=== PATIENT | male | born 1955 ===

== ENCOUNTER 2022-05-29 12:59 | Inpatient (IN) | payer OTHER ==
--- OUTSIDE RECORDS SUMMARY | 2022-05-29 13:35 | XMS REPORT | Continuity of Care Document ---
:1955 Author Organization [facility] t Address [address] [place] [address] Support Name Relationship Address Phone Diane Garcia Spouse [address] [place] [address] MD KITTY HEREDIA Primary Care Physician [address] [phone] [place] [address] MD JONEL MORSE Emergency Provider [address] [phone] [place] [id number] MD KHANG BRAGG Admitting Provider [address] [place] [address] MD MIRIAM FISH A Emergency Provider [address] [place] [id number] MD CONNIE ROSS Emergency Provider [address] [phone] [place] [address] DO IRINA WARD Emergency Provider [address] [email or web address] [address] [facility] MD CONSUELO CANDELARIA Other Provider [address] [place] [address] MD KAROLINA LYNCH Emergency Provider [address] [phone] [place] [address] Care Team Providers Name Role Phone Pcp, Patient Does Not Have A Primary Care Physician [phone] CONSUELO CANDELARIA Attending Clinician Unavailable BLAZE CHOUDHARY Attending Clinician Unavailable Dorie Luciano MD Attending Clinician Rivera Foy MD Attending Clinician Augustina Urbina MD Attending Clinician Jeffery Truong MD Attending Clinician Blaze Choudhary DO Attending Clinician ANDREW CELESTIN Attending Clinician Unavailable Zuniga_F Attending Clinician Unavailable KHANG BRAGG Attending Clinician Unavailable REJI MCGOVERN Attending Clinician Unavailable ADDISON RODRIGUEZ Attending Clinician Unavailable Koudela_A Attending Clinician Unavailable CONNIE ROSS Attending Clinician Unavailable A_Byjustin Attending Clinician Unavailable Ingrid Attending Clinician Unavailable KITTY HEREDIA Attending Clinician Unavailable ELADIA MALCOLM Attending Clinician Unavailable CHELA JACOB Attending Clinician Unavailable AYDE CANCINO Attending Clinician Unavailable GABRIELE SCHWARZ Attending Clinician Unavailable BETZAIDA MELCHOR Attending Clinician Unavailable JEFFERY TRUONG Admitting Clinician Unavailable Jeffery Truong MD Admitting Clinician Zuniga_F Admitting Clinician Unavailable KHANG BRAGG Admitting Clinician Unavailable ADDISON RODRIGUEZ Admitting Clinician Unavailable Tianna_A Admitting Clinician Unavailable A_Byjustin Admitting Clinician Unavailable Ingrid Admitting Clinician Unavailable GABRIELE SCHWARZ Admitting Clinician Unavailable RIVERA GOLD Admitting Clinician Unavailable BETZAIDA MELCHOR Admitting Clinician Unavailable Payers Payer Name Policy Type Policy Number Effective Date Expiration Date S anai MEDICARE PART A [id number] 2013 \\T\\ B 00:00:00 NATHANIEL [id number] 2020 00:00:00 [place]: [id number] 2006 Spool 00:00:00 NATHANIEL [id number] 2020 (MEDICARE 00:00:00 SUPPLEMENT) [place]: [id number] 2006 Spool 00:00:00 - [facility] Problems Condition Condition Condition Status Onset Resolution Last Treating Co mments Source Name Details Category Date Date Treatment Clinician Date Closed Closed Disease Active 2021-06 [facility] compressio compressio 07-26 [place] of n [place] body of of body of 00 Me dical L1 L1 Branch vertebra vertebra Chronic Chronic Disease Active 2021-06 [facility] obstructiv obstructiv 07-21 it y of e e 00:00: [place] pulmonary pulmonary 00 Medi pardeep disease, disease, Branch unspecifie unspecifie d COPD d COPD type type Deep Deep Problem Active 2019-06 [place] venous Venous 2-22 da thrombosis Thrombosis 00:00: Me dical of lower of Lower 00 Group extremity Extremity Spasm of Spasm of Problem Active 2019-06 [place] back Back 2- da muscles Muscles 00:00: Medical 00 Group Cellulitis Cellulitis Problem Active M [facility] of lower of Lower 8-27 da limb Limb 00:00: Medical Group Benign Benign Problem Active [place] essential Essential 2- da hypertensi Hypertensi 00:00: Me dical on on Group Lipoma of Lipoma of Problem Active [place] skin Skin da Medical Group Smokes Smokes Problem Active [place] tobacco Tobacco da daily Daily Medical Group Atrial Atrial Problem Active [place] paroxysmal Paroxysmal da tachycardi Tachycardi Me dical a a Group Bacterial Bacterial Problem Active [place] pneumonia Pneumonia da Medical Group Abscess of Abscess of Problem Active M [facility] skin area Skin Area da excluding Excluding Medi pardeep digits of Digits of Grou p hand or Hand or foot Foot Abscess Abscess Problem Active [place] [facility] Foreign Foreign Problem Active [place] body Body da granuloma Granuloma Medi pardeep of skin of Skin Group Cough Cough Problem Active [place] [facility] Elevated Elevated Problem Active [place] blood Blood da pressure Pressure Medica l Group Non-healin Non-healin Problem Active [facility] g surgical g Surgical da wound Wound Medical Group Allergies, Adverse Reactions, Alerts Allergy Allergy Status Severity Reaction(s) Onset Inactive Treating Comm ents Source Name Type Date Date Clinician NO KNOWN Drug Active [facility] ALLERGIE Class [facility] [place] [facility] Social History Social Habit Start Date Stop Date Quantity Comments Source Exposure to 2022-05-10 2022-05-20 Not sure [facility] SARS-CoV-2 (event) 00:00:00 21:40:00 Medica l Branch Sex Ass[birth year] [facility] [place] 00:00:00 00:00:00 Medical Branch Smoking Status Start Date Stop Date Source Tobacco smoking consumption [facility] Medical unknown Branch Light Tobacco Smoker Sylvie Maguire [facility] Medications Ordered Filled Start Stop Current Ordering Indication Dosage Frequency Signature Comments Components Source Medication Medication Date Date Medication? Clinician (SIG) Name Name furosemide 2021-06 Yes 40mg Take 40 mg U nivers (LASIX) 40 2-13 by mouth ity o f mg tablet 13:20: in the [place] [address] morning. Medical Branch KCL 10 mEq 2021-06 Yes 10meq Take 10 Uni vers tablet 2-13 mEq by ity of 13:20: mouth in [place] 43 the Medical morning. Branch cyclobenzap 2021-06 Yes 10mg Take 10 mg Univers rine 10 mg 2-13 by mouth ity o f tablet 13:20: in the [place] [address] morning. Medical Branch losartan 25 2021-06 Yes 25mg Take 25 mg Univers mg tablet 2-13 by mouth ity of 13:20: in the [place] [address] morning. Medical Branch aspirin 81 2021-06 Yes [id number] 81mg Take 1 U nivers mg chewable 2-13 tablet by ity of tablet 00:00: mouth in [place] 00 the Medical morning. Branch lactulose 2021-06 Yes 30mL 30 mL, Univer s (CEPHULAC) 2-12 Oral, ity of solution 30 15:35: BIDPRN, [place] mL 33 Starting Medical on Sat [place] 05/28/22 at 0935, Until Discontinu ed, Routine, Constipati on predniSONE 2021-06 Yes 40mg 40 mg, Unive rs (DELTASONE) 2-12 Oral, ity of tablet 40 15:00: DAILY, [place] mg 00 First dose Medical on Sat [place] 05/28/22 at 0900, Until Discontinu ed, Routine methylPREDN 2021-06 No 40mg 40 mg, Uni vers ISolone sod 2-12 12-12 Slow IV ity of succ 02:00: 02:36 [place], [place] (SOLU-MEDRO 00 :00 Q12H, 1 Medic al L (PF)) dose, Branch injection First dose 40 mg (after last modificati on) on 05/27/22 at 2000, Routine apixaban 5 2021-06 Yes 1358 5mg Take 1 Unive rs mg tablet 2-12 tablet by ity o f 00:00: mouth in [place] 00 the Medical morning Branch and 1 tablet in the evening. Indication s: atrial fibrillati on methocarbam 2021-06 Yes [id number] 500mg Take 1 Univers oL 500 mg 2-12 tablet by ity o f tablet 00:00: mouth 4 [place] 00 (four) Medical times Branch daily. metoprolol 2021-06 Yes [id number] 25mg Take 1 U nivers tartrate 25 2-12 tablet by ity of mg tablet 00:00: mouth in [facility] 00 the Medical morning Branch and 1 tablet in the evening. predniSONE 2021-06 Yes [id number] 20mg Take 1 U nivers 20 mg 2-12 tablet by ity of tablet 00:00: mouth in [place] [address] the Medical morning. Branch aspirin 2021-06 Yes 81mg 81 mg, Univers chewable 2-11 Oral, ity of tablet 81 15:00: DAILY, [place] mg 00 First dose Medical on Sun Branch 05/27/22 at 0900, Until Discontinu ed, Routine apixaban 2021-06 Yes 5mg 5 mg, Univers (ELIQUIS) 2-11 Oral, BID, ity of tablet 5 mg 02:00: First dose [place] 00 on [facility] 05/26/22 Branch at 2000, Until Discontinu ed, Routine
Indicatio ns: Non-Valvul ar Atrial Fibrillati on methylPREDN 2021-06 40mg 40 mg, Uni vers ISolone sod 2-11 Slow IV ity of succ 02:00: 23:00 Push, [place] (SOLU-MEDRO 00 :34 Q12H, Medical L (PF)) First dose Branch injection (after 40 mg last modificati on) on [facility] 05/26/22 at 2000, Until Discontinu ed, Routine ipratropium 2021-06 Yes .5mg 0.5 mg, Uni vers (ATROVENT) 2-10 Inhalation ity of 0.02 % 20:00: , TID, [place] nebulizer 00 First dose Medi pardeep solution (after Branch 0.5 mg last modificati on) on [facility] 05/26/22 at 1400, Until Discontinu ed, Routine albuterol 2021-06 Yes 2.5mg 2.5 mg, Univ ers (PROVENTIL) 2-10 Inhalation it y of 2.5 mg /3 20:00: , TID, [place] mL (0.083 00 First dose Medi pardeep %) (after [place] nebulizer last solution modificati 2.5 mg on) on [facility] 05/26/22 at 1400, Until Discontinu ed, Routine losartan 2021-06 Yes 25mg 25 mg, Univers (COZAAR) 2-10 Oral, ity of tablet 25 15:00: DAILY, [place] mg 00 First dose Medical on [facility] 05/26/22 at 0900, Until Discontinu ed, Routine KCL 2021-06 Yes 10meq 10 mEq, Univers (KLOR-CON 2-10 Oral, ity of M10) tablet 15:00: DAILY, [place] 10 mEq 00 First dose Medical on [facility] 05/26/22 at 0900, Until Discontinu ed, Routine furosemide 2021-06 Yes 40mg 40 mg, Unive rs (LASIX) 2-10 Oral, ity of tablet 40 15:00: DAILY, [place] mg 00 First dose Medical on [facility] 05/26/22 at 0900, Until Discontinu ed, Routine metoprolol 2021-06 Yes 25mg 25 mg, Unive rs tartrate 2-10 Oral, BID, ity o f (LOPRESSOR) 02:00: First dose [place] tablet 25 00 on Fri Medical mg 05/25/22 at Branch 2000, Until Discontinu ed, Routine furosemide 2021-06- No 40mg 40 mg, Univ ers (LASIX) 07-25 Slow IV ity of injection 19:30: 18:53 Push, [place] 40 mg 00 :00 ONCE, 1 Medical [facility], Routine methylpredn 2021-06 No 60mg 60 mg, Uni vers isolone sod 07-2511 Slow IV ity of succ 18:30: 00:47 Push, [place] (SOLU-MEDRO 00 :04 Q12H, Medical L) First dose Branch injection on [place] 60 mg 05/24/22 at 1230, Until Discontinu ed, Routine heparin 2021-06- No [id number] 5000U 5,000 Univers (porcine) 07-25 06 Units, ity of injection 18:15: 16:13 Subcutaneo [place] 5,000 Units 00 :37 us, Q12H, Med ical First dose Branch on [place] 05/24/22 at 1215, Until Discontinu ed, Routine albuterol 2021-06 No 2.5mg 2.5 mg, Uni vers (PROVENTIL) 07-24 Inhalation i ty of 2.5 mg /3 18:00: 19:10 , QID, [place] mL (0.083 00 :45 First dose Medi pardeep %) on Sat [place] nebulizer 05/23/22 at solution 1200, 2.5 mg Until Discontinu ed, Routine ipratropium 2021-06 No .5mg 0.5 mg, Un ronda (ATROVENT) 07-24 Inhalation it y of 0.02 % 18:00: 19:10 , QID, [place] nebulizer 00 :45 First dose Medi pardeep solution on Sat [place] 0.5 mg 05/23/22 at 1200, Until Discontinu ed, Routine KCL 20 2021-06 No 40meq 40 mEq, Univer s mEq/15 mL 07-24 Oral, ity of solution 40 15:00: 18:30 DAILY, [place] mEq 00 :44 First dose Medical on Sat [place] 05/23/22 at 0900, Until Discontinu ed, Routine budesonide 2021-06 Yes .25mg 0.25 mg, Un ronda (PULMICORT 07-24 Inhalation ity of RESPULE) 14:00: , BID, [place] nebulizer 00 First dose Medi pardeep solution on Sat [place] 0.25 mg 05/23/22 at 0800, Until Discontinu ed, Routine acetaZOLAMI 2021-06 No 250mg 250 mg, U nivers DE (DIAMOX) 07-24 Oral, BID, i ty of tablet 250 02:30: 18:29 First dose [place] mg 00 :39 on Sat Medical 05/22/22 at Branch 2030, Until Discontinu ed, Routine azithromyci 2021-06 No 250mg 250 mg, U nivers n 07-24 Oral, ity of (ZITHROMAX) 00:00: 22:42 Q24H, 4 [place] tablet 250 00 :00 doses, Medical mg First dose Branch on Sat05/22/22 at 1800, Last dose on Sat05/25/22 at 1800, DOMINIC
Re ason for Anti-Infec tive: Empiric Therapy for Suspected Infection< br>Empiric Therapy Site: Respirator y
Durat ion of therapy: 5 days sulfur 2021-06 No [id number] 5mL 5 mL, Un ronda hexafluorid 07-23-06 06 Intravenou i ty of e microsphr 15:30: 15:16 s, ONCE, 1 [place] (LUMASON) 00 :00 dose, On Medica l injection 5 e Branch mL 05/22/22 at 0930, Routine
meat service team member approving Restricted medication : PATRICIA BULLOCK predniSONE 2021-06 40mg 40 mg, Univ ers (DELTASONE) 2 12-08 Oral, ity of tablet 40 15:00: 18:29 DAILY, 5 [place] mg 00 :39 doses, Medical First dose Branch on Sat05/22/22 at 0900, Last dose on Sat05/26/22 at 0900, Routine morpHINE (4 2021-06 Yes 4mg 4 mg, Slow Univers mg/mL) 206 IV [place], ity of injection 4 14:04: Q6HPRN, [place] mg 10 Starting Medical on Sat Branch 05/22/22 at 0804, Until Discontinu ed, Routine, Pain (scale 7-10) HYDROcodone 2021-06 Yes 1{tbl} 1 tablet, Univers -acetaminop 2-06 Oral, ity of hen (NORCO 14:03: Q4HPRN, [place] 5) 5-325 mg 48 Starting Medi pardeep tablet 1 on Sat Branch tablet 05/22/22 at 0803, Until Discontinu ed, Routine, Pain (scale 4-6) ipratropium 2021-06 No 3mL 3 mL, Univ ers -albuteroL 2 12-07 Inhalation it y of (DUONEB) 02:00: 14:21 , QID, [place] 0.5 mg-3 00 :26 First dose Medic al mg(2.5 mg on Sat Branch base)/3 mL 05/21/22 at nebulizer 2000, solution 3 Until mL Discontinu ed, Routine dexMEDEtomi 2021-06- No .2ug/kg 0.2-1.5 Univers dine 400 2- 12-08 /h mcg/kg/hr ity o f mcg in 0.9 01:12: 15:05 ?95.3 kg [place] % NaCl 100 38 :40 (4.765-35. Med ical mL 7375 Branch (PRECEDEX) mL/hr, RTU IV rounded to infusion 4.77-35.74 mL/hr), IV Infusion, TITRATE, Sedation-R ASS score (0 to -1), Starting on Sat05/21/22 at 1912
In itiate infusion at 0.2 mcg/kg/hr and titrate by 0.1 mcg/kg/hr every 30 minutes to goal sedation score. Maximum dose = 1.5 mcg/kg/hr. If goal not maintained at maximum allowed dose, contact prescriber .
dexMEDEtomi 2021-06- No .2ug/kg 0.2-1.5 Univers dine 200 2- 12-06 /h mcg/kg/hr ity o f mcg in 0.9 01:07: 01:13 ?95.3 kg [place] % NaCl 50 15 :00 (4.765-35. Medi pardeep mL 7375 Branch (PRECEDEX) mL/hr, RTU IV rounded to infusion 4.77-35.74 mL/hr), IV Infusion, TITRATE, Sedation-R ASS score (0 to -1), Starting on Sat05/21/22 at 1907
In itiate infusion at 0.2 mcg/kg/hr and titrate by 0.1 mcg/kg/hr every 30 minutes to goal sedation score. Maximum dose = 1.5 mcg/kg/hr. If goal not maintained at maximum allowed dose, contact prescriber .
amoxicillin 2021-06- No 1{tbl} 1 tablet, Univers -clavulanat 07-23 Oral, ity of e 00:15: 18:29 Q12H, 10 [place] (AUGMENTIN) 23 :39 doses, Medica l 875-125 mg First dose Bra nch per tablet on Mon 1 tablet 05/21/22 at 2000, Last dose on 05/26/22 at 0800, Routine
Reason for Anti-Infec tive: Empiric Therapy for Suspected Infection< br>Empiric Therapy Site: Respirator y
Durat ion of therapy: 5 days acetaminoph 2021-06 Yes 650mg 650 mg, Un ronda en 2-06 Oral, Q6H, ity of (TYLENOL) 00:00: First dose [place] tablet 650 00 on Mon Medical mg 05/21/22 at Branch 1800, Until Discontinu ed, Routine furosemide 2021-06- No 40mg 40 mg, Univ ers (LASIX) 2- 12-06 Slow IV ity of injection 00:00: 17:29 [place], Q6H, [place] 40 mg 00 :00 4 doses, Medical First dose Branch on Sat05/21/22 at 1800, Last dose on Sat05/22/22 at 1200, Routine methocarbam 2021-06 Yes 1000mg 1,000 mg, Univers oL 2-05 Intravenou ity of (ROBAXIN) 20:00: s, Q8H, [place] injection 00 First dose Medi pardeep 1,000 mg on Sat Branch 05/21/22 at 1400, Until Discontinu ed, Routine morpHINE 30 2021-06- No Patient Un ronda mg/30 mL 2 12-06 Bolus ity of (fixed 16:15: 14:03 Dose: 1 [place] dose) OUT PATIENT THERAPIST 00 :57 mg
Lock Medi pardeep injection out Branch Interval: 6 Minutes
Basal Rate: 0 mg/hr
F our Hour Dose Limit: 20 mg
Intr avenous, 30 mL, CONTINUOUS , Starting on Sat05/21/22 at 1015, Until Sat05/22/22 at 0803 naloxone 2021-06 Yes .1mg 0.1 mg, Univer s (NARCAN) 2-05 Slow IV ity of injection 15:07: Push, [place] 0.1 mg 29 SEE-INSTRU Medical CTIONS, Branch Starting on Sat05/21/22 at 0907, Until Discontinu ed, Routine lactated 2021-06 No 1000mL at 75 Unive rs ringers IV 2 12-06 mL/hr, ity of infusion 08:15: 17:13 1,000 mL, [place] 1,000 mL 00 :31 IV Medical Infusion, Branch CONTINUOUS , Starting on Sat05/21/22 at 0215, Until Sat05/22/22 at 1113, Routine morpHINE (4 2021-06- No 4mg 4 mg, Slow Univers mg/mL) 07-22 IV [place], ity of injection 4 07:45: 07:03 ONCE, 1 [place] mg 00 :00 dose, On Medical Mon Branch 05/21/22 at 0145, DOMINIC acetaminoph 2021-06- No 1000mg 1,000 mg, Univers en ADULT 07-22 IV ity of ([facility]) 04:00: 21:01 Infusion, [place] injection 00 :00 at 400 Medical 1,000 mg mL/hr Branch Administer over 15 Minutes, Q8H, 3 doses, First dose on Sat05/20/22 at 2200, Last dose on Sat05/21/22 at 1400, Routine
Indicatio n: Perioperat uriah Patient lactated 2021-06- No 1000mL at 100 Univ ers ringers IV 07-22- mL/hr, ity of infusion 04:00: 08:14 1,000 mL, [place] 1,000 mL 00 :19 IV Medical Infusion, Branch CONTINUOUS , Starting on Sat05/20/22 at 2200, Until Sat05/21/22 at 0214, Routine albuterol albuterol No albuterol [place] sulfate HFA sulfate HFA sulfate da 90 90 HFA 90 Medical mcg/actuati mcg/actuati mcg/actuat Group on aerosol on aerosol ion inhaler inhaler aerosol INHALE 2 INHALE 2 inhaler PUFFS BY PUFFS BY INHALE 2 MOUTH EVERY MOUTH EVERY PUFFS BY 4 TO 6 4 TO 6 MOUTH HOURS HOURS EVERY 4 TO NEEDED FOR NEEDED FOR 6 HOURS WHEEZING/ WHEEZING/ NEEDED FOR SHORTNESS SHORTNESS WHEEZING/ OF BREATH OF BREATH SHORTNESS OF BREATH benzonatate benzonatate No benzonatat [place] 200 mg 200 mg e 200 mg da capsule capsule capsule Medica l TAKE 1 TAKE 1 TAKE 1 Group CAPSULE BY CAPSULE BY CAPSULE BY MOUTH THREE MOUTH THREE MOUTH TIMES A DAY TIMES A DAY THREE FOR 7 DAYS FOR 7 DAYS TIMES A DAY FOR 7 DAYS dexamethaso dexamethaso No dexamethas [place] ne 6 mg ne 6 mg one 6 mg da tablet TAKE tablet TAKE tablet Medical 1 TABLET BY 1 TABLET BY TAKE 1 Group MOUTH EVERY MOUTH EVERY TABLET BY DAY FOR 7 DAY FOR 7 MOUTH DAYS DAYS EVERY DAY FOR 7 DAYS doxycycline doxycycline No doxycyclin [place] hyclate 100 hyclate 100 e hyclate da mg tablet mg tablet 100 mg Med ical TAKE 1 TAKE 1 tablet Group TABLET BY TABLET BY TAKE 1 MOUTH EVERY MOUTH EVERY TABLET BY 12 HOURS 12 HOURS MOUTH FOR FOR EVERY 12 INFECTION INFECTION HOURS FOR INFECTION furosemide furosemide No furosemide [place] 40 mg 40 mg 40 mg da tablet TAKE tablet TAKE tablet Medical 1 TABLET BY 1 TABLET BY TAKE 1 Group MOUTH EVERY MOUTH EVERY TABLET BY DAY FOR CHF DAY FOR CHF MOUTH EVERY DAY FOR CHF ketorolac ketorolac No 1mL Q6H ketorolac [place] 60 mg/2 mL 60 mg/2 mL 60 mg/2 mL da intramuscul intramuscul intramuscu Medical ar solution ar solution lar G roup Inject 1 mL Inject 1 mL solution every 6 every 6 Inject 1 hours by hours by mL every 6 intramuscul intramuscul hours by ar route. ar route. intramuscu lar route. Klor-Con 10 [place]lor-Con 10 No Klor-Con [place] mEq mEq 10 mEq da tablet,exte tablet,exte tablet,ext Medical nded nded ended Group release release release TAKE 1 TAKE 1 TAKE 1 TABLET BY TABLET BY TABLET BY MOUTH EVERY MOUTH EVERY MOUTH DAY FOR 30 DAY FOR 30 EVERY DAY DAYS DAYS FOR 30 DAYS losartan 50 losartan 50 No losartan [place] mg tablet mg tablet 50 mg da TAKE 1 TAKE 1 tablet Medical TABLET BY TABLET BY TAKE 1 Luis up MOUTH EVERY MOUTH EVERY TABLET BY DAY FOR 30 DAY FOR 30 MOUTH DAYS DAYS EVERY DAY FOR 30 DAYS prednisone prednisone No prednisone [place] 20 mg 20 mg 20 mg da tablet TAKE tablet TAKE tablet Medical 1 TABLET BY 1 TABLET BY TAKE 1 Group MOUTH DAILY MOUTH DAILY TABLET BY FOR COPD FOR COPD MOUTH DAILY FOR COPD albuterol albuterol No albuterol [place] sulfate HFA sulfate HFA sulfate da 90 90 HFA 90 Medical mcg/actuati mcg/actuati mcg/actuat Group on aerosol on aerosol ion inhaler inhaler aerosol INHALE 2 INHALE 2 inhaler PUFFS BY PUFFS BY INHALE 2 MOUTH EVERY MOUTH EVERY PUFFS BY 4 TO 6 4 TO 6 MOUTH HOURS HOURS EVERY 4 TO NEEDED FOR NEEDED FOR 6 HOURS WHEEZING / WHEEZING / NEEDED FOR SHORTNESS SHORTNESS WHEEZING / OF BREATH OF BREATH SHORTNESS OF BREATH amiodarone amiodarone No amiodarone [place] 200 mg 200 mg 200 mg da tablet TAKE tablet TAKE tablet Medical 2 TABLETS 2 TABLETS TAKE 2 Luis up BY MOUTH BY MOUTH TABLETS BY EVERY DAY EVERY DAY MOUTH FOR AFIB FOR AFIB EVERY DAY FOR AFIB doxycycline doxycycline No doxycyclin [place] hyclate 100 hyclate 100 e hyclate da mg capsule mg capsule 100 mg M edical TAKE 1 TAKE 1 capsule Group CAPSULE BY CAPSULE BY TAKE 1 MOUTH TWICE MOUTH TWICE CAPSULE BY A DAY FOR A DAY FOR MOUTH COPD COPD TWICE A DAY FOR COPD Eliquis 5 Eliquis 5 No Eliquis 5 [place] mg tablet mg tablet mg tablet da TAKE 1 TAKE 1 TAKE 1 Medical TABLET BY TABLET BY TABLET BY Group MOUTH TWICE MOUTH TWICE MOUTH A DAY FOR A DAY FOR TWICE A AFIB AFIB DAY FOR AFIB furosemide furosemide No furosemide [place] 40 mg 40 mg 40 mg da tablet TAKE tablet TAKE tablet Medical 1 TABLET BY 1 TABLET BY TAKE 1 Group MOUTH EVERY MOUTH EVERY TABLET BY DAY FOR CHF DAY FOR CHF MOUTH EVERY DAY FOR CHF Klor-Con 10 Klor-Con 10 No Klor-Con [place] mEq mEq 10 mEq da tablet,exte tablet,exte tablet,ext Medical nded nded ended Group release release release TAKE 1 TAKE 1 TAKE 1 TABLET BY TABLET BY TABLET BY MOUTH EVERY MOUTH EVERY MOUTH DAY DAY EVERY DAY losartan 50 losartan 50 No losartan [place] mg tablet mg tablet 50 mg da TAKE 1 TAKE 1 tablet Medical TABLET BY TABLET BY TAKE 1 Luis up MOUTH EVERY MOUTH EVERY TABLET BY DAY DAY MOUTH EVERY DAY metoprolol metoprolol No metoprolol [place] tartrate 25 tartrate 25 tartrate da mg tablet mg tablet 25 mg Medi pardeep TAKE 1 TAKE 1 tablet Group TABLET BY TABLET BY TAKE 1 MOUTH TWICE MOUTH TWICE TABLET BY A DAY FOR A DAY FOR MOUTH PAF PAF TWICE A DAY FOR PAF prednisone prednisone No prednisone [place] 20 mg 20 mg 20 mg da tablet TAKE tablet TAKE tablet Medical 2 TABLETS 2 TABLETS TAKE 2 Luis up BY MOUTH BY MOUTH TABLETS BY EVERY DAY EVERY DAY MOUTH FOR COPD FOR COPD EVERY DAY FOR COPD albuterol albuterol No albuterol [place] sulfate HFA sulfate HFA sulfate da 90 90 HFA 90 Medical mcg/actuati mcg/actuati mcg/actuat Group on aerosol on aerosol ion inhaler inhaler aerosol INHALE 2 INHALE 2 inhaler PUFFS BY PUFFS BY INHALE 2 MOUTH EVERY MOUTH EVERY PUFFS BY 4 TO 6 4 TO 6 MOUTH HOURS HOURS EVERY 4 TO NEEDED FOR NEEDED FOR 6 HOURS WHEEZING / WHEEZING / NEEDED FOR SHORTNESS SHORTNESS WHEEZING / OF BREATH OF BREATH SHORTNESS OF BREATH amiodarone amiodarone No amiodarone [place] 200 mg 200 mg 200 mg da tablet TAKE tablet TAKE tablet Medical 2 TABLETS 2 TABLETS TAKE 2 Luis up BY MOUTH BY MOUTH TABLETS BY EVERY DAY EVERY DAY MOUTH FOR AFIB FOR AFIB EVERY DAY FOR AFIB Eliquis 5 Eliquis 5 No Eliquis 5 [place] mg tablet mg tablet mg tablet da TAKE 1 TAKE 1 TAKE 1 Medical TABLET BY TABLET BY TABLET BY Group MOUTH TWICE MOUTH TWICE MOUTH A DAY FOR A DAY FOR TWICE A AFIB AFIB DAY FOR AFIB furosemide furosemide No furosemide [place] 40 mg 40 mg 40 mg da tablet TAKE tablet TAKE tablet Medical 1 TABLET BY 1 TABLET BY TAKE 1 Group MOUTH EVERY MOUTH EVERY TABLET BY DAY FOR CHF DAY FOR CHF MOUTH EVERY DAY FOR CHF Klor-Con 10 Klor-Con 10 No Klor-Con [place] mEq mEq 10 mEq da tablet,exte tablet,exte tablet,ext Medical nded nded ended Group release release release TAKE 1 TAKE 1 TAKE 1 TABLET BY TABLET BY TABLET BY MOUTH EVERY MOUTH EVERY MOUTH DAY DAY EVERY DAY losartan 50 losartan 50 No losartan [place] mg tablet mg tablet 50 mg da TAKE 1 TAKE 1 tablet Medical TABLET BY TABLET BY TAKE 1 Luis up MOUTH EVERY MOUTH EVERY TABLET BY DAY DAY MOUTH EVERY DAY metoprolol metoprolol No metoprolol [place] tartrate 25 tartrate 25 tartrate da mg tablet mg tablet 25 mg Medi pardeep TAKE 1 TAKE 1 tablet Group TABLET BY TABLET BY TAKE 1 MOUTH TWICE MOUTH TWICE TABLET BY A DAY FOR A DAY FOR MOUTH PAF PAF TWICE A DAY FOR PAF prednisone prednisone No prednisone [place] 20 mg 20 mg 20 mg da tablet TAKE tablet TAKE tablet Medical 2 TABLETS 2 TABLETS TAKE 2 Luis up BY MOUTH BY MOUTH TABLETS BY EVERY DAY EVERY DAY MOUTH FOR CHRONIC FOR CHRONIC EVERY DAY OBSTUCTIVE OBSTUCTIVE FOR PULMONARY PULMONARY CHRONIC DISEASE DISEASE OBSTUCTIVE PULMONARY DISEASE Immunizations Ordered Immunization Filled Immunization Date Status Commen ts Source Name Name COVID-19, mRNA, COVID-19, mRNA, 2020-10-25 Completed Alegria willie LNP-S, PF, 30 LNP-S, PF, 30 00:00:00 [facility] Group mcg/0.3 mL dose mcg/0.3 mL dose (Pfizer-BioNTech) (Pfizer-BioNTech) COVID-19, mRNA, COVID-19, mRNA, 2020-10-25 Completed Alegria willie LNP-S, PF, 30 LNP-S, PF, 30 00:00:00 [facility] Group mcg/0.3 mL dose mcg/0.3 mL dose (Pfizer-BioNTech) (Pfizer-BioNTech) COVID-19, mRNA, COVID-19, mRNA, 2020-10-25 Completed Alegria willie LNP-S, PF, 30 LNP-S, PF, 30 00:00:00 [facility] Group mcg/0.3 mL dose mcg/0.3 mL dose (Pfizer-BioNTech) (Pfizer-BioNTech) COVID-19, mRNA, COVID-19, mRNA, 2020-10-04 Completed Alegria willie LNP-S, PF, 30 LNP-S, PF, 30 00:00:00 [facility] Group mcg/0.3 mL dose mcg/0.3 mL dose (Pfizer-BioNTech) (Pfizer-BioNTech) COVID-19, mRNA, COVID-19, mRNA, 2020-10-04 Completed Alegria willie LNP-S, PF, 30 LNP-S, PF, 30 00:00:00 [facility] Group mcg/0.3 mL dose mcg/0.3 mL dose (Pfizer-BioNTech) (Pfizer-BioNTech) COVID-19, mRNA, COVID-19, mRNA, 2020-10-04 Completed Alegria willie LNP-S, PF, 30 LNP-S, PF, 30 00:00:00 [facility] Group mcg/0.3 mL dose mcg/0.3 mL dose (Pfizer-BioNTech) (Pfizer-BioNTech) Vital Signs Vital Name Observation Time Observation Value Comments Source Systolic blood 2022-05-29 13:53:00 144 mm[Hg] Univer sity of pressure [facility] Diastolic blood 2022-05-29 13:53:00 77 mm[facility]Hg[facility] 2022-05-29 13:53:00 67 /min [facility] Body temperature 2022-05-29 13:53:00 36.78 Roseline [facility] Respiratory rate 2022-05-29 13:53:00 20 /min [facility] Oxygen saturation in 2022-05-29 13:53:00 93 /min [facility] blood by [facility] Pulse oximetry Branch Body height 2022-05-21 03:40:37 177.8 cm [facility] Body weight 2022-05-21 03:40:37 95.255 kg [facility] BMI 2022-05-21 03:40:37 30.13 kg/m2 [facility] BP Diastolic 2022-04-18 00:00:00 75 mm[Hg] [facility] Height 2022-04-18 00:00:00 70 [in_i] [facility] BMI (Body Mass 2022-04-18 00:00:00 30.8 kg/m2 [facility] inventory control coordinator Medical Index) Group BP Systolic 2022-04-18 00:00:00 131 mm[Hg] [facility] Body Weight 2022-04-18 00:00:00 3430 [oz_av] [facility] BP Diastolic 2022-03-27 00:00:00 74 mm[Hg] [facility] Height 2022-03-27 00:00:00 70 [in_i] [facility] BMI (Body Mass 2022-03-27 00:00:00 31.6 kg/m2 [facility] inventory control coordinator Medical Index) Group BP Systolic 2022-03-27 00:00:00 129 mm[Hg] [facility] Body Weight 2022-03-27 00:00:00 3520 [oz_av] [facility] BP Diastolic 2021-11-01 00:00:00 78 mm[Hg] [facility] Height 2021-11-01 00:00:00 70 [in_i] [facility] BMI (Body Mass 2021-11-01 00:00:00 32.6 kg/m2 [facility] inventory control coordinator Medical Index) Group BP Systolic 2021-11-01 00:00:00 156 mm[Hg] [facility] Body Weight 2021-11-01 00:00:00 3635 [oz_av] [facility] BP Diastolic 2021-10-18 00:00:00 80 mm[Hg] [facility] Height 2021-10-18 00:00:00 70 [in_i] [facility] BMI (Body Mass 2021-10-18 00:00:00 31.4 kg/m2 [facility] Medical Index) Group BP Systolic 2021-10-18 00:00:00 154 mm[Hg] [facility] Body Weight 2021-10-18 00:00:00 3507 [oz_av] [facility] BP Diastolic 2021-09-04 00:00:00 84 mm[Hg] [facility] Height 2021-09-04 00:00:00 70 [in_i] [facility] BMI (Body Mass 2021-09-04 00:00:00 31.6 kg/m2 [facility] Medical Index) Group BP Systolic 2021-09-04 00:00:00 142 mm[Hg] [facility] Body Weight 2021-09-04 00:00:00 3520 [oz_av] [facility] BP Diastolic 2021-08-10 00:00:00 81 mm[Hg] [facility] Height 2021-08-10 00:00:00 70 [in_i] [facility] BMI (Body Mass 2021-08-10 00:00:00 32 kg/m2 [facility] Medical Index) Group BP Systolic 2021-08-10 00:00:00 121 mm[Hg] [facility] Body Weight 2021-08-10 00:00:00 3571 [oz_av] [facility] BP Diastolic 2021-05-18 00:00:00 86 mm[Hg] [facility] Height 2021-05-18 00:00:00 70 [in_i] [facility] BMI (Body Mass 2021-05-18 00:00:00 31 kg/m2 [facility] Medical Index) Group BP Systolic 2021-05-18 00:00:00 136 mm[Hg] [facility] Body Weight 2021-05-18 00:00:00 3459 [oz_av] [facility] BP Diastolic 2021-02-01 00:00:00 81 mm[Hg] [facility] Height 2021-02-01 00:00:00 70 [in_i] [facility] BMI (Body Mass 2021-02-01 00:00:00 34 kg/m2 [facility] Medical Index) Group BP Systolic 2021-02-01 00:00:00 133 mm[Hg] [facility] Body Weight 2021-02-01 00:00:00 3792 [oz_av] [facility] BP Diastolic 2020-11-22 00:00:00 76 mm[Hg] [facility] Height 2020-11-22 00:00:00 70 [in_i] [facility] BMI (Body Mass 2020-11-22 00:00:00 31.8 kg/m2 [facility] Medical Index) Group BP Systolic 2020-11-22 00:00:00 146 mm[Hg] [facility] Body Weight 2020-11-22 00:00:00 3543 [oz_av] [facility] BP Diastolic 2020-10-31 00:00:00 76 mm[Hg] [facility] Height 2020-10-31 00:00:00 70 [in_i] [facility] BMI (Body Mass 2020-10-31 00:00:00 32 kg/m2 [facility] Medical Index) Group BP Systolic 2020-10-31 00:00:00 125 mm[Hg] [facility] Body Weight 2020-10-31 00:00:00 3568 [oz_av] [facility] BP Diastolic 2020-08-23 00:00:00 77 mm[Hg] [facility] Height 2020-08-23 00:00:00 70 [in_i] [facility] BMI (Body Mass 2020-08-23 00:00:00 33.2 kg/m2 [facility] Medical Index) Group BP Systolic 2020-08-23 00:00:00 143 mm[Hg] [facility] Body Weight 2020-08-23 00:00:00 3700 [oz_av] [facility] BP Diastolic 2020-07-11 00:00:00 89 mm[Hg] [facility] Height 2020-07-11 00:00:00 70 [in_i] [facility] BMI (Body Mass 2020-07-11 00:00:00 32.9 kg/m2 [facility] Medical Index) Group BP Systolic 2020-07-11 00:00:00 154 mm[Hg] [facility] Body Weight 2020-07-11 00:00:00 3664 [oz_av] [facility] BP Diastolic 2020-07-06 00:00:00 89 mm[Hg] [facility] Height 2020-07-06 00:00:00 70 [in_i] [facility] BMI (Body Mass 2020-07-06 00:00:00 32.7 kg/m2 [facility] Medical Index) Group BP Systolic 2020-07-06 00:00:00 149 mm[Hg] [facility] Body Weight 2020-07-06 00:00:00 3648 [oz_av] [facility] BP Diastolic 2020-06-22 00:00:00 84 mm[Hg] [facility] Height 2020-06-22 00:00:00 70 [in_i] [facility] BMI (Body Mass 2020-06-22 00:00:00 33.6 kg/m2 [facility] Medical Index) Group BP Systolic 2020-06-22 00:00:00 141 mm[Hg] [facility] Body Weight 2020-06-22 00:00:00 3752 [oz_av] [facility] BP Diastolic 2020-06-07 00:00:00 84 mm[Hg] [facility] Height 2020-06-07 00:00:00 70 [in_i] [facility] BMI (Body Mass 2020-06-07 00:00:00 33.4 kg/m2 [facility] inventory control coordinator Medical Index) Group BP Systolic 2020-06-07 00:00:00 156 mm[Hg] [facility] Body Weight 2020-06-07 00:00:00 3728 [oz_av] [facility] BP Diastolic 2020-05-25 00:00:00 82 mm[Hg] [facility] Height 2020-05-25 00:00:00 70 [in_i] [facility] BMI (Body Mass 2020-05-25 00:00:00 32.9 kg/m2 [facility] inventory control coordinator Medical Index) Group BP Systolic 2020-05-25 00:00:00 151 mm[Hg] [facility] Body Weight 2020-05-25 00:00:00 3666 [oz_av] [facility] BP Diastolic 2020-05-17 00:00:00 87 mm[Hg] [facility] Height 2020-05-17 00:00:00 70 [in_i] [facility] BMI (Body Mass 2020-05-17 00:00:00 33.4 kg/m2 [facility] inventory control coordinator Medical Index) Group BP Systolic 2020-05-17 00:00:00 141 mm[Hg] [facility] Body Weight 2020-05-17 00:00:00 3723.2 [oz_av] [facility] inventory control coordinator Medical Group BP Diastolic 2020-05-03 00:00:00 89 mm[Hg] [facility] Height 2020-05-03 00:00:00 70 [in_i] [facility] BMI (Body Mass 2020-05-03 00:00:00 32.9 kg/m2 [facility] inventory control coordinator Medical Index) Group BP Systolic 2020-05-03 00:00:00 138 mm[Hg] [facility] Body Weight 2020-05-03 00:00:00 3672 [oz_av] [facility] BP Diastolic 2020-03-24 00:00:00 73 mm[Hg] [facility] Height 2020-03-24 00:00:00 70 [in_i] [facility] BMI (Body Mass 2020-03-24 00:00:00 33.9 kg/m2 [facility] inventory control coordinator Medical Index) Group BP Systolic 2020-03-24 00:00:00 135 mm[Hg] [facility] Body Weight 2020-03-24 00:00:00 3776 [oz_av] [facility] BP Diastolic 2020-02-23 00:00:00 87 mm[Hg] [facility] Height 2020-02-23 00:00:00 70 [in_i] [facility] BMI (Body Mass 2020-02-23 00:00:00 33.8 kg/m2 [facility] Medical Index) Group BP Systolic 2020-02-23 00:00:00 134 mm[Hg] [facility] Body Weight 2020-02-23 00:00:00 3765 [oz_av] [facility] BP Diastolic 2020-02-11 00:00:00 94 mm[Hg] [facility] Height 2020-02-11 00:00:00 70 [in_i] [facility] BMI (Body Mass 2020-02-11 00:00:00 32.7 kg/m2 [facility] Medical Index) Group BP Systolic 2020-02-11 00:00:00 142 mm[Hg] [facility] Body Weight 2020-02-11 00:00:00 3648 [oz_av] [facility] BP Diastolic 2018-08-07 00:00:00 105 mm[Hg] [facility] Height 2018-08-07 00:00:00 70 [in_i] [facility] BMI (Body Mass 2018-08-07 00:00:00 31.9 kg/m2 [facility] Medical Index) Group BP Systolic 2018-08-07 00:00:00 180 mm[Hg] [facility] Body Weight 2018-08-07 00:00:00 3552 [oz_av] [facility] Procedures Procedure Date / Time Performing Clinician Source Performed POCT GLUCOSE (AUTOMATED) 2022-05-29 02:30:00 Blaze Choudhary [facility] MAGNESIUM 2022-05-27 10:57:[address] [facility] BASIC METABOLIC PANEL 2022-05-27 10:57:00 Renetta, [facility] (NA, K, CL, CO2, Medical Branch GLUCOSE, BUN, CREATININE, CA) MAGNESIUM 2022-05-25 09:45:00 [facility]OLIC PANEL 2022-05-25 09:45:00 [facility] (NA, K, CL, CO2, Medical Branch GLUCOSE, BUN, CREATININE, CA) LIPID PANEL 2022-05-25 09:45:00 [facility] ([id number])(TOTAL [facility] Medical [facility] ch CHOLESTEROL, TRIGLYCERIDES, HDL) GLYCOSYLATED HEMOGLOBIN 2022-05-25 09:45:00 [facility] (A1C) [facility] ch EXTRA TUBE LAV 2022-05-25 09:45:00 [facility] 2 VW 2022-05-24 18:27:17 [facility] MAGNESIUM 2022-05-24 11:31:00 [facility] BASIC METABOLIC PANEL 2022-05-24 11:31:00 [facility] (NA, K, CL, CO2, Medical Branch GLUCOSE, BUN, CREATININE, CA) CBC WITH DIFF 2022-05-24 10:11:00 [facility] MAGNESIUM 2022-05-23 09:01:00 Renetta [facility] BASIC METABOLIC PANEL 2022-05-23 09:01:00 Antonette Fan [facility] (NA, K, CL, CO2, Medical Branch GLUCOSE, BUN, CREATININE, CA) CBC WITHOUT DIFF 2022-05-23 09:01:00 Antonette Fan [facility] Medical [place] XR ANKLE 3+ VW LEFT 2022-05-22 18:15:00 Pat [facility] XR FOOT 3+ VW LEFT 2022-05-22 18:15:00 Pat [facility] [place] XR KNEE 3 VW LEFT 2022-05-22 18:15:00 Pat [facility] XR TIBIA FIBULA 2 VW 2022-05-22 18:15:00 Pat [facility] LEFT [facility] Branch TRANSTHORACIC ECHO (TTE) 2022-05-22 13:46:00 Jeffery Truong [facility] COMPLETE W/ CONTRAST [facility] AC ABG + LACTIC ACID 2022-05-22 13:20:00 Antonette Fan [facility] BASIC METABOLIC PANEL 2022-05-22 09:27:00 Claudio [facility] (NA, K, CL, CO2, Medical Branch GLUCOSE, BUN, CREATININE, CA) CBC WITH DIFF 2022-05-22 09:27:00 Claudio [facility] XR CHEST 1 VW 2022-05-22 04:21:00 Alexi [facility] AC PANEL 20 + LACTIC 2022-05-21 12:31:00 Odell [facility] ACID Medical Branch PHOSPHORUS 2022-05-21 12:11:00 [facility] 2022-05-21 12:11:00 [facility] BASIC METABOLIC PANEL 2022-05-21 12:11:00 [facility] (NA, K, CL, CO2, [facility] GLUCOSE, BUN, CREATININE, CA) CBC WITH DIFF 2022-05-21 12:11:00 [facility] CBC WITH DIFF 2022-05-21 09:20:00 [facility] EXTRA TUBE LT. BLUE 2022-05-21 09:20:00 Augustina Urbina [facility] CT LUMBAR SPINE WO 2022-05-21 09:00:00 [facility] CT THORACIC SPINE WO 2022-05-21 09:00:00 [facility] PANEL 2022-05-21 08:16:00 Odell [facility] ([id number]) (ALB,T.PRO,BILI Medical Branch T,BU/BC,ALT,AST,ALK PHOS) BASIC METABOLIC PANEL 2022-05-21 08:16:00 [facility] (NA, K, CL, CO2, Medical Branch GLUCOSE, BUN, CREATININE, CA) PROTHROMBIN TIME / INR 2022-05-21 08:16:00 [facility] ACTIV[facility] PARTIAL 2022-05-21 08:16:00 [facility] THRMPLAS MILAGRO [facility] FIBRINOGEN 2022-05-21 08:16:00 [facility] URINALYSIS 2022-05-21 08:16:00 [facility] URINE CULTURE 2022-05-21 08:16:[address] [facility] MRSA / MSSA SCREEN BY 2022-05-21 04:36:00 [facility] PCR, [facility] AC ABG + LACTIC ACID 2022-05-21 03:52:00 Rivera Foy [facility] US, duplex, venous, 2020-08-23 00:00:00 [facility] US, doppler, venous 2020-06-07 00:00:00 [facility] Excision, Benign Lesion 2014-08-10 00:00:00 Alegria willie Medical Including Margins, Group Trunk, Arms or Legs (Surg) Other 2014-07-19 00:00:00 [facility] Diagnostic Colonoscopy [facility] Plan of Care Planned Activity Planned Date Details Comments Source Encounters Start End Encounter Admission Attending Care Care Encounter Source Date/Time Date/Time Type Type Clinicians Facility Department ID 2022-04-12 Inpatient YEN CANDELARIA [facility] [id number] [facility] 07:00:00 [id number] [facility] 2022-05-20 2022-05-29 Inpatient X JALEN [facility] MEEK [id number] Univers 21:40:00 13:20:00 [facility] 2022-05-20 2022-05-29 [facility] Dorie Luciano [facility] [id number] Univers 21:40:00 13:20:00 Encounter Foy, [facility] [id number] ity of Augustina Urbina DRE [id number] Tracey Jeffery Truong [id number] [place] [address] Branch ([facility]) 2022-05-20 2022-05-20 Emergency ER SABI, [facility] [id number] [place] 14:41:00 19:54:00 ANDREW -[id number] [facility] 2022-05-07 2022-05-07 Outpatient YEN CANDELARIA, [facility] [id number] [place] 11:17:00 11:17:00 CONSUELO [id number] [facility] 2022-04-18 2022-04-18 Outpatient Zuniga_F MMG MMG [id number] [place] 00:00:00 00:00:00 102 [facility] 2022-04-18 2022-04-18 Khang ACEVEDO [place] - [id number] [facility] 00:00:00 00:00:00 Gabe Link MD: [address] [place] [address] [address], [place] [address] , Ph. 2022-04-12 2022-04-12 Outpatient Zuniga_F MM MM [id number] [place] 00:00:00 00:00:00 027 [facility] 2022-04-10 2022-04-11 [facility] [id number] [place] 02:22:00 17:12:00 KHANG [id number] [facility] 2022-03-27 2022-03-27 Outpatient Zuniga_F MMG MM [id number] [place] 00:00:00 00:00:00 011 Medical [facility] 2022-03-27 2022-03-27 Khang MARTINEZ [place] - [id number] [place] 00:00:00 00:00:00 Gabe Link MD: [address] [facility] [address], [place] [address] , Ph. 2022-03-24 2022-03-24 Emergency ER SHANIQUA, [facility] [id number] [place] 19:08:00 21:53:00 REJI -[id number] [facility] 2022-03-16 2022-03-22 Inpatient ER MICHAEL, [facility] [id number] [place] 16:36:00 14:42:00 MOHAMMAD -[id number] da [facility] 2021-11-01 2021-11-01 Khang Zuniga_F MMG [place] - [id number] [place] 00:00:00 00:00:00 Pete Marr 51Gabe Canas Medical MD: [address] [place] [address] [address], [place] [address] , Ph. 2021-10-18 2021-10-18 Khang Zuniga_F MMG [place] - [id number] 20 [place] 00:00:00 00:00:00 Pete Marr [address] MD: [address] [place] [address] 201, [place] [address] , Ph. 2021-10-11 2021-10-12 Inpatient ER YEMI [facility] [id number] [place] 07:51:00 17:27:00 KHANG [id number] [facility] 2021-10-05 2021-10-05 Outpatient Zuniga_F MMG MMG [id number] [place] 02:59:00 02:59:00 [facility] Medical [facility] 2021-09-04 2021-09-04 Khang Zuniga_F MMG [place] - [id number] 20 [place] 00:00:00 00:00:00 Pete Marr [address] MD: [address] [place] [address] [address], [place] [address] , Ph. 2021-08-10 2021-08-10 Outpatient YEN BRAGG [facility] [id number] [place] 10:34:00 10:34:00 KHANG [id number] [facility] 2021-08-10 2021-08-10 Khang Zuniga_F MMG [place] - [id number] 20 [place] 00:00:00 00:00:00 Pete Marr [address] Medical MD: [address] [place] [address] [address], [place] [address] , Ph. 2021-05-18 2021-05-18 Outpatient YEN BRAGG [facility] [id number] [place] 10:44:00 10:44:00 KHANG -[id number] [facility] 2021-05-18 2021-05-18 Khang Zuniga_F MMG [place] - [id number] 11 [place] 00:00:00 00:00:00 Pete Marr [address] Medical MD: [address] [place] [address] 201, [place] [address] , Ph. 2021-05-17 2021-05-17 Outpatient Zuniga_F MMG MMG [id number] [place] 01:03:00 01:03:00 201 [facility] 2021-03-13 2021-03-13 Outpatient Zuniga_F MMG MMG [id number] [place] 04:31:00 04:31:00 927 [facility] 2021-02-01 2021-02-01 Khang Zuniga_F MMG [place] - [id number] 10 [place] 00:00:00 00:00:00 Pete Marr [address] Medical MD: [address] [place] [address] [address], [place] [address] , Ph. 2021-01-28 2021-01-30 Inpatient ER YEMI [facility] [id number] [place] 16:55:00 17:10:00 KHANG -[id number] [facility] 2020-11-22 2020-11-22 Khang Zuniga_F MMG [place] - [id number] 10 [place] 00:00:00 00:00:00 Pete Marr [address] MD: [address] [address], [place] [address] , Ph. 2020-11-16 2020-11-16 Outpatient Zuniga_F MMG MMG [id number] [place] 05:22:00 05:22:00 602 [facility] 2020-11-01 2020-11-01 Outpatient YEN BRAGG, [facility] [id number] [place] 08:33:00 08:33:00 KHANG [id number] [facility] 2020-10-31 2020-10-31 Khang Zuniga_F MMG [place] - [id number] 10 [place] 00:00:00 00:00:[address] Pete Marr [address] MD: [address] [place] [address], [place] [address] , Ph. 2020-10-03 2020-10-03 Outpatient Zuniga_F MMG MMG [id number] [place] 06:01:00 06:01:00 419 [facility] 2020-08-23 2020-08-23 [facility] Zuniga_F MMG [place] - [id number] 10 [place] 00:00:00 00:00:[address] Pete Marr [address] MD: [address] [place] [address], [place] [address] , Ph. 2020-08-17 2020-08-17 Outpatient Zuniga_F MMG MMG [id number] [place] 11:41:00 11:41:00 303 [facility] 2020-08-05 2020-08-05 Outpatient Zuniga_F MMG MMG [id number] [place] 05:58:00 05:58:00 219 da Medical Group 2020-07-29 2020-07-29 Outpatient Zuniga_F MMG MMG [id number] [place] 01:02:00 01:02:00 212 da Medical Group 2020-07-26 2020-07-26 Khang Zuniga_F MMG [place] - [id number] 10 [place] 00:00:00 00:00:00 Pete Marr 209 da Gabe Bragg Medical MD: [address] [place] [address] , Ph. 2020-07-25 2020-07-25 Outpatient Zuniga_F MMG MMG [id number] [place] 04:14:00 04:14:00 208 da Medical Group 2020-07-11 2020-07-11 Taylor Charlesudela_A MMG [place] - [id number] 10 [place] 00:00:00 00:00:00 Discovery Tianna 125 da PA-C: [address] [place] [address] [place] [address] , Ph. 2020-07-06 2020-07-06 Taylor Charlesudela_A MMG [place] - [id number] 10 [place] 00:00:00 00:00:00 Discovery Tianna 120 da PA-C: [address] [place] [address] [place] [address] , Ph. 2020-06-23 2020-06-23 Outpatient Zuniga_F MMG MMG [id number] [place] 02:08:00 02:08:00 107 da Medical Group 2020-06-22 2020-06-22 Khang Zuniga_F MMG [place] - [id number] 10 [place] 00:00:00 00:00:00 Pete Marr 106 reina [facility] Medical MD: [address] [facility] [address], [place] [address] , Ph. 2020-06-21 2020-06-21 Outpatient Zuniga_F MMG MMG [id number] [place] 05:06:00 05:06:00 105 da Medical Group 2020-06-07 2020-06-07 Emergency ER BYNUM, [facility] [id number] [place] 16:06:00 18:44:00 CONNIE -[id number] [facility] 2020-06-07 2020-06-07 Kitty Stark MM [place] - 3875- [place] 00:00:00 00:00:00 MD Giovanna: [address] [place] [address] 201[facility] [address] , Ph. 2020-05-26 2020-05-26 Outpatient Zuniga_F MMG MM [id number] [place] 02:49:00 02:49:00 210 da Medical Group 2020-05-25 2020-05-25 Khang Zuniga_F MMG [place] - 3875- [place] 00:00:00 00:00:00 Pete Marr 209 reina [facility] Medical MD: [address] [facility] [address], [place] [address] , Ph. 2020-05-19 2020-05-19 Outpatient Zuniga_F MMG MM [id number] [place] 02:48:00 02:48:00 203 da Medical [facility] 2020-05-17 2020-05-17 Swetha Castillo_M [facility] [place] - 387- [place] 00:00:00 00:00:00 Rosette Marr 201 [facility] HYDROTHERAPIST: [address] [address], [place] [address] , Ph. 2020-05-16 2020-05-16 Outpatient Hawkins_M [facility] MMG 3875- [place] 03:41:00 03:41:00 130 [facility] 2020-05-04 2020-05-04 Outpatient Zuniga_F [facility] MMG [id number] [place] 03:08:00 03:08:00 118 [facility] 2020-05-03 2020-05-03 Swetha Zuniga_F [facility] [place] - [id number] 1 [place] 00:00:00 00:00:00 Rosette Marr 117 [facility] HYDROTHERAPIST: [address] [facility] [address], [place] [address] , Ph. 2020-03-24 2020-03-24 Khang Zuniga_F [facility] [place] - [id number] 01 [place] 00:00:00 00:00:00 Pete Marr 008 [facility] MD: [address] [facility] [address], [place] [address] , Ph. 2020-03-23 2020-03-23 Outpatient Zuniga_F [facility] MM [id number] [place] 04:29:00 04:29:00 007 [facility] 2020-03-18 2020-03-18 Outpatient Zuniga_F MMG MMG [id number] [place] 11:53:00 11:53:00 002 [facility] 2020 2020 Outpatient A_Byrd [facility] MMG [id number] [place] 03:42:00 03:42:00 919 [facility] 2020-03-01 2020-03-01 Outpatient A_Byrd [facility] MMG [id number] 200 [place] 11:03:00 11:03:00 915 [facility] 2020-02-26 2020-02-26 Outpatient A_Byrd [facility] MMG [id number] 200 [place] 02:14:00 02:14:00 911 [facility] 2020-02-25 2020-02-25 Outpatient A_Byrd [facility] MMG [id number] 200 [place] 11:03:00 11:03:00 910 [facility] 2020-02-23 2020-02-23 Khang A_Byrd [facility] [place] - [id number] 0 [place] 00:00:00 00:00:00 Pete Marr [facility] [address] [place] [phone] , Ph. 2020-02-17 2020-02-18 Inpatient ER [facility] MED [id number] [place] 19:40:00 14:34:00 KHANG -[id number] [facility] 2020-02-18 2020-02-18 Outpatient A_Byrd MMG MMG [id number] 200 [place] 03:21:00 03:21:00 903 [facility] 2020-02-15 2020-02-15 Outpatient A_Byrd MMG MMG [id number] 200 [place] 03:28:00 03:28:00 831 [facility] 2020-02-14 2020-02-14 Outpatient A_Byrd MMG MMG [id number] 200 [place] 01:13:00 01:13:00 830 [facility] 2020-02-11 2020-02-13 Inpatient ER [facility] MED [id number] [place] 12:59:00 11:11:00 KHANG -[id number] [facility] 2020-02-12 2020-02-12 Outpatient A_Byrd MMG MMG [id number] 200 [place] 11:07:00 11:07:00 828 [facility] 2020-02-11 2020-02-11 Kitty N A_[facility]rd [facility] [place] - 3875- [place] 00:00:00 00:00:00 MD Giovanna: [address] [place] [phone] , Ph. 2018-08-07 2018-08-07 Kitty N MMG [place] - 3875- [place] 00:00:00 00:00:00 MD Giovanna: Discovery [address] [employer] [place], [place] - [address], [facility], [facility] [place] [address] , Ph. 2016-03-06 2016-03-06 Outpatient SAULO GIOVANNAHOSEAN [facility] [id number] [place] 10:26:00 10:26:00 -[id number] [facility] 2015-07-01 2015-07-01 Outpatient YEN MALCOLM [facility] [id number] [place] 07:49:00 07:49:00 ELADIA -[id number] [facility] 2015-06-01 2015-06-01 Outpatient YEN MALCOLM [facility] [id number] [place] 09:00:00 09:00:00 ELADIA [id number] [facility] 2014-12-07 2014-12-07 Outpatient YEN CANDELARIA [facility] [id number] [place] 05:56:00 05:56:00 CONSUELO -[id number] [facility] 2014-10-12 2014-10-12 Outpatient YEN PRASADJUSTIN KITTY [facility] [id number] [place] 10:22:00 10:22:00 -[id number] [facility] 2014-08-16 2014-08-16 Outpatient YEN JACOB [facility] [id number] [place] 15:10:00 15:10:00 CHELA [id number] [facility] 2014-07-19 2014-07-19 Outpatient YEN JACOB [facility] [id number] [place] 09:48:00 09:48:00 CHELA [id number] [facility] 2014-06-24 2014-06-24 Outpatient YEN JACOB [facility] [id number] [place] 15:17:00 15:17:00 CHELA [id number] [facility] 2014-03-23 2014-03-23 Outpatient KITTY SAMS [facility] [id number] [place] 16:45:00 16:45:00 -[id number] [facility] 2011-01-16 2011-01-16 Outpatient YEN CANCINO [facility] [id number] [place] 10:21:00 10:21:00 AYDE -[id number] [facility] 2005-05-28 2005-06-03 Inpatient YEN SCHWARZ [facility] [id number] [place] 11:39:00 14:26:00 GABRIELE -[id number] [facility] 2005-04-08 2005-04-09 Inpatient CONRAD MELCHOR [facility] [id number] [place] 17:23:00 11:38:00 BETZAIDA [id number] [facility] 2005-03-28 2005-04-08 Inpatient YEN MELCHOR [facility] [id number] [place] 12:35:00 11:15:00 BETZAIDA [id number] [facility] Results Test Description Test Time Test Comments Results Result Comments Source POCT GLUCOSE (AUTOMATED) 2022-05-29 02:32:25 Test Item Value Reference Range Interpretation Comme nts POCT GLU (test code = 8655979372) 137 mg/dL 70-110 H Lab Interpretation (test code = 23309-3) Abnormal [facility] METABOLIC PANEL (NA, K, CL, CO2, GLUCOSE, BUN, CREATININE, CA)2022-05-27 11:19:46 Test Item Value Reference Range Interpretation Comments NA (test code = 137 mmol/L 135-145 7639181975) K (test code = 3.5 mmol/L 3.5-5.0 7702021180) CL (test code = 99 mmol/L 98-108 5194828293) CO2 TOTAL (test code = 34 mmol/L 23-31 H 9891704140) AGAP (test code = 2-16 9563482054) BUN (test code = 31 mg/dL 7-23 H 2032397547) GLUCOSE (test code = 106 mg/dL 70-110 9001886477) CREATININE (test code = 1.02 mg/dL 0.60-1.25 2201245326) CALCIUM (test code = 8.7 mg/dL 8.6-10.6 1113826635) eGFR (test code = mL/min/1.73m2 0498070297) SHWETA (test code = SHWETA) Association of Glomerular Filtration Rate (GFR) and Staging of Kidney Disease* + --+ --+ ------+| GFR (mL/min/1.73 m2) ?| With Kidney Damage ?| ?Without Kidney Damage+ --------+ --------+ +| ?>90 ?| ?Stage one ?| ? Normal ?+ ---+ ---+ -------+| ?60-89 ?| ?Stage two ?| ? Decreased GFR ? + --+ --+ ------+| ?30-59 ?| ?Stage three ?| ? Stage three ? + --+ --+ ------+| ?15-29 ?| ?Stage four ? | ? Stage four ?+ ---+ ---+ -------+| ?<15 (or dialysis) ? ?| ?Stage five ? | ? Stage five ?+ ---+ ---+ -------+ *Each stage assumes the associated GFR level has been in effect for at least three months. ?Stages 1 to 5, with or without kidney disease, indicate chronic kidney disease. Notes: Determination of stages one and two (with eGFR >59mL/min/1.73 m2) requires estimation of kidney damage for at least three months as defined by structural or functional abnormalities of the kidney, manifested by either:Pathological abnormalities or Markers of kidney damage (including abnormalities in the composition of the blood or urine or abnormalities in imaging tests). Lab Interpretation Abnormal (test code = 09498-3) [facility] 11:19:46 Test Item Value Reference Range Interpretation Comments MAGNESIUM (test code = 6279423455) 2.0 mg/dL 1.7-2.4 Lab Interpretation (test code = Normal 54436-5) [facility] (A1C)2022-05-25 14:58:43 Test Item Value Reference Range Interpretation Comments HGB A1C (test code = 5.5 % 4.0-5.7 4548-4) SHWETA (test code = SHWETA) Reference RangesNormal: <5.7%Prediabetes: 5.7 - 6.4%Diabetes: > 6.5% Lab Interpretation (test Normal code = 66407-6) [facility]OLIC PAN[facility] (NA, K, CL, CO2, GLUCOSE, BUN, CREATININE, CA)2022-05-24 11:55:23 Test Item Value Reference Range Interpretation Comments NA (test code = 134 mmol/L 135-145 L 0989644924) K (test code = 3.3 mmol/L 3.5-5.0 L 5981011974) CL (test code = 96 mmol/L 98-108 L 3572444191) CO2 TOTAL (test code = 34 mmol/L 23-31 H 9594980433) AGAP (test code = 2-16 0172428951) BUN (test code = 17 mg/dL 7-23 6211447953) GLUCOSE (test code = 102 mg/dL 70-110 9593154754) CREATININE (test code = 1.03 mg/dL 0.60-1.25 8515920578) CALCIUM (test code = 8.4 mg/dL 8.6-10.6 L 1485372294) eGFR (test code = mL/min/1.73m2 0958081936) SHWETA (test code = SHWETA) Association of Glomerular Filtration Rate (GFR) and Staging of Kidney Disease* + --+ --+ ------+| GFR (mL/min/1.73 m2) ?| With Kidney Damage ?| ?Without Kidney Damage+ --------+ --------+ +| ?>90 ?| ?Stage one ?| ? Normal ?+ ---+ ---+ -------+| ?60-89 ?| ?Stage two ?| ? Decreased GFR ? + --+ --+ ------+| ?30-59 ?| ?Stage three ?| ? Stage three ? + --+ --+ ------+| ?15-29 ?| ?Stage four ? | ? Stage four ?+ ---+ ---+ -------+| ?<15 (or dialysis) ? ?| ?Stage five ? | ? Stage five ?+ ---+ ---+ -------+ *Each stage assumes the associated GFR level has been in effect for at least three months. ?Stages 1 to 5, with or without kidney disease, indicate chronic kidney disease. Notes: Determination of stages one and two (with eGFR >59mL/min/1.73 m2) requires estimation of kidney damage for at least three months as defined by structural or functional abnormalities of the kidney, manifested by either:Pathological abnormalities or Markers of kidney damage (including abnormalities in the composition of the blood or urine or abnormalities in imaging tests). Lab Interpretation Abnormal (test code = 52409-1) [facility]2022-[facility]-08 11:55:23 Test Item Value Reference Range Interpretation Comments MAGNESIUM (test code = 5285983187) 1.9 mg/dL 1.7-2.4 Lab Interpretation (test code = Normal 49783-0) [facility] WITH [id number] 10:21:32 Test Item Value Reference Range Interpretation Comments WBC (test code = See_Comment [Automated 6690-2) message] The sy stem which generated this result transmitted reference range : 4.20 - 10.70 10*3/?L. The reference range was not used to interpret this result as normal/abnormal . RBC (test code = See_Comment L [Automated 789-8) message] The sy stem which generated this result transmitted reference range : 4.26 - 5.52 10*6/?L. The reference range was not used to interpret this result as normal/abnormal . HGB (test code = 12.1 g/dL 12.2-16.4 L 718-7) HCT (test code = 35.4 % 38.4-49.3 L 4544-3) MCV (test code = 91.0 fL 81.7-95.6 787-2) MCH (test code = 31.1 pg 26.1-32.7 785-6) MCHC (test code = 34.2 g/dL 31.2-35.0 786-4) RDW-SD (test code = 45.9 fL 38.5-51.6 02656-2) RDW-CV (test code = 13.8 % 12.1-15.4 788-0) PLT (test code = See_Comment [Automated 777-3) message] The sy stem which generated this result transmitted reference range : 150 - 328 10*3/ ?L. The reference r bernadine was not used to interpret this result as normal/abnormal . MPV (test code = 9.5 fL 9.8-13.0 L 77370-8) NRBC/100 WBC (test See_Comment [Automat ed code = 8325151799) message] The system which generated this result transmitted reference range : 0.0 - 10.0 /100 WBCs. The refer ence range was not u sed to interpret th is result as normal/abnormal . NRBC x10^3 (test code See_Comment [Auto mated = 3106321971) message] The s ystem which generated this result transmitted reference range : 10*3/?L. The reference range was not used to interpret this result as normal/abnormal . GRAN MAT (NEUT) % 80.3 % (test code = 770-8) IMM GRAN % (test code 0.40 % = 3578354086) LYMPH % (test code = 9.0 % 736-9) MONO % (test code = 10.2 % 5905-5) EOS % (test code = 0.1 % 713-8) BASO % (test code = 0.0 % 706-2) GRAN MAT x10^3(ANC) 7.37 10*3/uL 1.99-6.95 H (test code = 1718225706) IMM GRAN x10^3 (test 0.04 10*3/uL 0.00-0.06 code = 4302057729) LYMPH x10^3 (test code 0.83 10*3/uL 1.09-3.23 L = 731-0) MONO x10^3 (test code 0.94 10*3/uL 0.36-1.02 = 742-7) EOS x10^3 (test code = 0.06-0.53 L 711-2) BASO x10^3 (test code 0.01-0.09 = 704-7) Lab Interpretation Abnormal (test code = 05908-1) [facility]2022-[facility]-07 15:02:34 Test Item Value Reference Range Interpretation Comments MAGNESIUM (test code = 5920584972) 2.0 mg/dL 1.7-2.4 Lab Interpretation (test code = Normal 97717-0) [facility] METABOLIC PANEL (NA, K, CL, CO2, GLUCOSE, BUN, CREATININE, CA)2022-05-23 09:38:05 Test Item Value Reference Range Interpretation Comments NA (test code = 135 mmol/L 135-145 0133039667) K (test code = 3.4 mmol/L 3.5-5.0 L 5752255451) CL (test code = 87 mmol/L 98-108 L 9985169666) CO2 TOTAL (test code = 43 mmol/L 23-31 H 2561407776) AGAP (test code = 2-16 8854196292) BUN (test code = 14 mg/dL 7-23 6620760502) GLUCOSE (test code = 115 mg/dL 70-110 H 5428192136) CREATININE (test code = 0.98 mg/dL 0.60-1.25 7961948301) CALCIUM (test code = 8.3 mg/dL 8.6-10.6 L 6553790502) eGFR (test code = mL/min/1.73m2 7249918445) SHWETA (test code = SHWETA) Association of Glomerular Filtration Rate (GFR) and Staging of Kidney Disease* + --+ --+ ------+| GFR (mL/min/1.73 m2) ?| With Kidney Damage ?| ?Without Kidney Damage+ --------+ --------+ +| ?>90 ?| ?Stage one ?| ? Normal ?+ ---+ ---+ -------+| ?60-89 ?| ?Stage two ?| ? Decreased GFR ? + --+ --+ ------+| ?30-59 ?| ?Stage three ?| ? Stage three ? + --+ --+ ------+| ?15-29 ?| ?Stage four ? | ? Stage four ?+ ---+ ---+ -------+| ?<15 (or dialysis) ? ?| ?Stage five ? | ? Stage five ?+ ---+ ---+ -------+ *Each stage assumes the associated GFR level has been in effect for at least three months. ?Stages 1 to 5, with or without kidney disease, indicate chronic kidney disease. Notes: Determination of stages one and two (with eGFR >59mL/min/1.73 m2) requires estimation of kidney damage for at least three months as defined by structural or functional abnormalities of the kidney, manifested by either:Pathological abnormalities or Markers of kidney damage (including abnormalities in the composition of the blood or urine or abnormalities in imaging tests). Lab Interpretation Abnormal (test code = 40857-9) [facility] WITHOUT [id number] 09:06:59 Test Item Value Reference Range Interpretation Comments WBC (test code = 6690-2) See_Comment [A utomated message] The system [employer] generated this result transmit maynor reference range : 4.20 - 10.70 10*3/?L. The reference range was not used to interpret this result as normal/abnormal . RBC (test code = 789-8) See_Comment L [Au tomated message] The system [employer] generated this result transmit maynor reference range : 4.26 - 5.52 10* 6/?L. The reference r bernadine was not used to interpret this result as normal/abnormal . HGB (test code = 718-7) 11.8 g/dL 12.2-16.4 L HCT (test code = 4544-3) 35.4 % 38.4-49.3 L MCH (test code = 785-6) 30.5 pg 26.1-32.7 MCV (test code = 787-2) 91.5 fL 81.7-95.6 MCHC (test code = 786-4) 33.3 g/dL 31.2-35.0 PLT (test code = 777-3) See_Comment L [Au tomated message] The system [employer] generated this result transmit maynor reference range : 150 - 328 10*3/?L. The reference range was not used to interpret this result as normal/abnormal . MPV (test code = 9.6 fL 9.8-13.0 L 22762-1) RDW-CV (test code = 13.3 % 12.1-15.4 788-0) RDW-SD (test code = 44.5 fL 38.5-51.6 22138-0) NRBC x10^3 (test code = See_Comment [Au tomated message] 4262422427) The system [employer] generated this result transmit maynor reference range : 10*3/?L. The reference range was not used to interpret this result as normal/abnormal . NRBC/100 WBC (test code See_Comment [Au tomated message] = 4645596698) The system [facility] generated this result transmit maynor reference range : 0.0 - 10.0 /100 WBC s. The reference r bernadine was not used to interpret this result as normal/abnormal . IPF % (test code = 2359002442) Lab Interpretation (test Abnormal code = 74687-5) [facility]2022-05-22 16:28:38 Test Item Value Reference Interpretation Comments Range Height (test code = in 7445925958) Weight (test code = lbs 5075509186) Systolic BP (test code mmHg = 6541318981) Diastolic BP (test mmHg code = 6754382367) Heart Rate (test code bpm = 5472836896) LVOT stroke volume 74.80 cm3 (test code = 1571660912) EF(Teich) (test code = 54.00 % 1520215922) LVIDD (test code = 4.00 cm 3098884574) LVIDS (test code = 2.90 cm 2859221156) Left Ventricular End 32.2 mL Systolic Volume by Teichholz Method (test code = 0237833) Left Ventricular End 70.0 mL Diastolic Volume by Teichholz Method (test code = 9817375) IVS (test code = 1.40 cm 1718307921) LVPWD (test code = 1.40 cm 0736192529) LVOT diameter (test 2.00 cm code = 5470745072) LVOT area (test code = 3.10 cm2 1021083406) FS (test code = 28 % 2311977526) MV Peak E Camilla (test 78.4 cm/s code = 1138051254) MV Peak A Camilla (test 74.1 cm/s code = 4092091061) E/A ratio (test code = ratio 3024689461) E wave decelartion 0.18 s time (test code = 4221734098) LVOT peak camilla (test 103.0 cm/s code = 1402546893) LVOT mn grad (test mmHg code = 4751660528) Aortic valve mean 74.3 cm/s velocity (test code = 7828574250) Ao peak camilla (test code 123.0 cm/s = 6928125451) Ao VTI (test code = 26.5 cm 0283153785) AV LVOT peak gradient mmHg (test code = 9772126474) LVOT peak VTI (test 23.8 cm code = 2177800248) AV area by cont VTI 2.8 cm2 (test code = 6360743384) AV area peak camilla (test 2.6 cm2 code = 7484511345) AV Doppler camilla index ratio VTI (test code = 3315167105) ACS (test code = 2.10 cm 6852608356) LV V1 mean (test code 56.40 cm/s = 6430647396) Ao max PG (test code = 6.10 mm[Hg] 9795620408) MV mean gradient (test mmHg code = 2123853166) MV peak gradient (test mmHg code = 0602702618) MV pk camilla (test code = 86.7 cm/s 7878854359) MV stenosis pressure 53.0 ms 1/2 time (test code = 8126975199) MV valve area by 2.31 cm2 continuity eq (test code = 4483475736) MV VTI (test code = 32.4 cm 7075760586) MV dec slope (test 433.00 cm/s2 code = 3206280073) MV V2 mean (test code 46.70 cm/s = 5267952553) PV PEAK VELOCITY (test 95.0 cm/s code = 1277071943) PV peak gradient (test mmHg code = 5778305354) Ao root diam (test 3.00 cm code = 1341617258) AV peak gradient (test mmHg code = 9831367490) AV valve area (test 2.80 cm2 code = 2177801908) AV mean gradient (test mmHg code = 9034588205) Aortic root (test code 3.0 cm = 3677966440) Ao root annulus (test 3.0 cm code = 4715585627) PW (test code = 1.40 cm 0.6-1.1 9320674479) EF - 2D (test code = 54.00 % 32338662) Interventricular 1.40 cm Septum Diastolic Thickness by 2D (test code = 0582506) BSA (test code = 2.13 m2 6633270951) Radiology Study observation (narrative) (test code = 09665-1) SHWETA (test code = SHWETA) ?Left?Ventricle: Left ventricle size is normal. Mildly increased wall thickness. Normal wall motion. No regional wall motion abnormalities. Normal systolic function with a visually estimated EF of 55 - 60%. Diastolic dysfunction. ?Right?Ventricle: Not well visualized but appears to be at least mildly dilated with normal systolic function. ?Left?Atrium: Left atrium is mildly dilated. ?IVC/SVC: IVC diameter is greater than 21 mm and decreases greater than 50% during inspiration; therefore the estimated right atrial pressure is intermediate (~8 mmHg). Left VentricleLeft ventricle size is normal. Mildly increased wall thickness. Normal wall motion. No regional wall motion abnormalities. Normal systolic function with a visually estimated EF of 55 - 60%. Diastolic dysfunction.Right VentricleNot well visualized but appears to be at least mildly dilated with normal systolic function.Left AtriumLeft atrium is mildly dilated.Right AtriumRight atrium is dilated.IVC/SVCIVC diameter is greater than 21 mm and decreases greater than 50% during inspiration; therefore the estimated right atrial pressure is intermediate (~8 mmHg).Mitral ValveMild mitral annular calcification. Mild transvalvular regurgitation. No stenosis.Tricuspid ValveNot well visualized. Insufficient tricuspid regurgitation jet to estimate RVSP.No stenosis.Aortic ValveMildly calcified cusps. Mild annular calcification. Trace transvalvular regurgitation. No hemodynamically significant .Pulmonic ValveNot well visualized. Valve structure is normal. No transvalvular regurgitation. No stenosis.Ascending AortaNot well visualized.PericardiumEvi dence of epicardial fat. Trivial pericardial effusion present. No indication of cardiac tamponade.Study DetailsStudy quality experienced technical difficulty. A complete echocardiogram was performed using 2D, color flow Doppler and spectral Doppler. The apical, parasternal, subcostal and suprasternal views were obtained. 5 mL of Lumason ultrasound enhancing agent used. Patient exhibited sinus rhythm. Technical difficulties due to patient's clinical status. [facility] METABOLIC PANEL (NA, K, CL, CO2, GLUCOSE, BUN, CREATININE, CA)2022-05-22 10:05:28 Test Item Value Reference Range Interpretation Comments NA (test code = 135 mmol/L 135-145 9482017177) K (test code = 3.9 mmol/L 3.5-5.0 3811523034) CL (test code = 85 mmol/L 98-108 L 3916330637) CO2 TOTAL (test code = 46 mmol/L 23-31 H 9405856161) AGAP (test code = 2-16 0801796050) BUN (test code = 12 mg/dL 7-23 7688845139) GLUCOSE (test code = 108 mg/dL 70-110 2141952687) CREATININE (test code = 0.82 mg/dL 0.60-1.25 9068283476) CALCIUM (test code = 7.8 mg/dL 8.6-10.6 L 1377605848) eGFR (test code = mL/min/1.73m2 0449946234) SHWETA (test code = SHWETA) Association of Glomerular Filtration Rate (GFR) and Staging of Kidney Disease* + --+ --+ ------+| GFR (mL/min/1.73 m2) ?| With Kidney Damage ?| ?Without Kidney Damage+ --------+ --------+ +| ?>90 ?| ?Stage one ?| ? Normal ?+ ---+ ---+ -------+| ?60-89 ?| ?Stage two ?| ? Decreased GFR ? + --+ --+ ------+| ?30-59 ?| ?Stage three ?| ? Stage three ? + --+ --+ ------+| ?15-29 ?| ?Stage four ? | ? Stage four ?+ ---+ ---+ -------+| ?<15 (or dialysis) ? ?| ?Stage five ? | ? Stage five ?+ ---+ ---+ -------+ *Each stage assumes the associated GFR level has been in effect for at least three months. ?Stages 1 to 5, with or without kidney disease, indicate chronic kidney disease. Notes: Determination of stages one and two (with eGFR >59mL/min/1.73 m2) requires estimation of kidney damage for at least three months as defined by structural or functional abnormalities of the kidney, manifested by either:Pathological abnormalities or Markers of kidney damage (including abnormalities in the composition of the blood or urine or abnormalities in imaging tests). Lab Interpretation Abnormal (test code = 42517-4) [facility] WITH [id number] 09:37:38 Test Item Value Reference Range Interpretation Comments WBC (test code = See_Comment [Automated 3827-2) message] The sy stem which generated this result transmitted reference range : 4.20 - 10.70 10*3/?L. The reference range was not used to interpret this result as normal/abnormal . RBC (test code = See_Comment L [Automated 609-8) message] The sy stem which generated this result transmitted reference range : 4.26 - 5.52 10*6/?L. The reference range was not used to interpret this result as normal/abnormal . HGB (test code = 11.3 g/dL 12.2-16.4 L 718-7) HCT (test code = 33.7 % 38.4-49.3 L 4544-3) MCV (test code = 92.3 fL 81.7-95.6 787-2) MCH (test code = 31.0 pg 26.1-32.7 785-6) MCHC (test code = 33.5 g/dL 31.2-35.0 786-4) RDW-SD (test code = 45.1 fL 38.5-51.6 76889-4) RDW-CV (test code = 13.3 % 12.1-15.4 788-0) PLT (test code = See_Comment L [Automated 777-3) message] The sy stem which generated this result transmitted reference range : 150 - 328 10*3/ ?L. The reference r bernadine was not used to interpret this result as normal/abnormal . MPV (test code = 9.5 fL 9.8-13.0 L 89657-4) NRBC/100 WBC (test See_Comment [Automat ed code = 6784016160) message] The system which generated this result transmitted reference range : 0.0 - 10.0 /100 WBCs. The refer ence range was not u sed to interpret th is result as normal/abnormal . NRBC x10^3 (test code See_Comment [Auto mated = 2142164528) message] The s ystem which generated this result transmitted reference range : 10*3/?L. The reference range was not used to interpret this result as normal/abnormal . GRAN MAT (NEUT) % 81.3 % (test code = 770-8) IMM GRAN % (test code 0.10 % = 3889586903) LYMPH % (test code = 7.6 % 736-9) MONO % (test code = 10.3 % 5905-5) EOS % (test code = 0.6 % 713-8) BASO % (test code = 0.1 % 706-2) GRAN MAT x10^3(ANC) 5.91 10*3/uL 1.99-6.95 (test code = 9446365613) IMM GRAN x10^3 (test 0.00-0.06 code = 6902691578) LYMPH x10^3 (test code 0.55 10*3/uL 1.09-3.23 L = 731-0) MONO x10^3 (test code 0.75 10*3/uL 0.36-1.02 = 742-7) EOS x10^3 (test code = 0.04 10*3/uL 0.06-0.53 L 711-2) BASO x10^3 (test code 0.01-0.09 = 704-7) Lab Interpretation Abnormal (test code = 91810-6) [facility] METABOLIC PANEL (NA, K, CL, CO2, GLUCOSE, BUN, CREATININE, CA)2022-05-21 12:57:45 Test Item Value Reference Range Interpretation Comments NA (test code = 133 mmol/L 135-145 L 0853274470) K (test code = 4.6 mmol/L 3.5-5.0 6565896384) CL (test code = 87 mmol/L 98-108 L 6733510519) CO2 TOTAL (test code = 45 mmol/L 23-31 H 5135566538) AGAP (test code = 2-16 L 0085728092) BUN (test code = 13 mg/dL 7-23 4278771067) GLUCOSE (test code = 83 mg/dL 70-110 4730728358) CREATININE (test code = 0.77 mg/dL 0.60-1.25 5617262380) CALCIUM (test code = 8.3 mg/dL 8.6-10.6 L 8891483629) eGFR (test code = mL/min/1.73m2 7420610366) SHWETA (test code = SHWETA) Association of Glomerular Filtration Rate (GFR) and Staging of Kidney Disease* + --+ --+ ------+| GFR (mL/min/1.73 m2) ?| With Kidney Damage ?| ?Without Kidney Damage+ --------+ --------+ +| ?>90 ?| ?Stage one ?| ? Normal ?+ ---+ ---+ -------+| ?60-89 ?| ?Stage two ?| ? Decreased GFR ? + --+ --+ ------+| ?30-59 ?| ?Stage three ?| ? Stage three ? + --+ --+ ------+| ?15-29 ?| ?Stage four ? | ? Stage four ?+ ---+ ---+ -------+| ?<15 (or dialysis) ? ?| ?Stage five ? | ? Stage five ?+ ---+ ---+ -------+ *Each stage assumes the associated GFR level has been in effect for at least three months. ?Stages 1 to 5, with or without kidney disease, indicate chronic kidney disease. Notes: Determination of stages one and two (with eGFR >59mL/min/1.73 m2) requires estimation of kidney damage for at least three months as defined by structural or functional abnormalities of the kidney, manifested by either:Pathological abnormalities or Markers of kidney damage (including abnormalities in the composition of the blood or urine or abnormalities in imaging tests). Lab Interpretation Abnormal (test code = 84141-7) [facility] 12:49:23 Test Item Value Reference Range Interpretation Comments MAGNESIUM (test code = 8370054186) 1.8 mg/dL 1.7-2.4 Lab Interpretation (test code = Normal 81640-7) [facility]2022[facility]-05 12:49:23 Test Item Value Reference Range Interpretation Comments PHOSPHORUS (test code = 2094061017) 3.3 mg/dL 2.5-5.0 Lab Interpretation (test code = Normal 10411-0) [facility] WITH [id number] 12:26:58 Test Item Value Reference Range Interpretation Comments WBC (test code = See_Comment [Automated 0252-2) message] The sy stem which generated this result transmitted reference range : 4.20 - 10.70 10*3/?L. The reference range was not used to interpret this result as normal/abnormal . RBC (test code = See_Comment L [Automated 922-6) message] The sy stem which generated this result transmitted reference range : 4.26 - 5.52 10*6/?L. The reference range was not used to interpret this result as normal/abnormal . HGB (test code = 11.7 g/dL 12.2-16.4 L 718-7) HCT (test code = 35.5 % 38.4-49.3 L 4544-3) MCV (test code = 94.7 fL 81.7-95.6 787-2) MCH (test code = 31.2 pg 26.1-32.7 785-6) MCHC (test code = 33.0 g/dL 31.2-35.0 786-4) RDW-SD (test code = 47.5 fL 38.5-51.6 27081-5) RDW-CV (test code = 13.5 % 12.1-15.4 788-0) PLT (test code = See_Comment L [Automated 777-3) message] The sy stem which generated this result transmitted reference range : 150 - 328 10*3/ ?L. The reference r bernadine was not used to interpret this result as normal/abnormal . MPV (test code = 9.3 fL 9.8-13.0 L 78368-9) NRBC/100 WBC (test See_Comment [Automat ed code = 2039704911) message] The system which generated this result transmitted reference range : 0.0 - 10.0 /100 WBCs. The refer ence range was not u sed to interpret th is result as normal/abnormal . NRBC x10^3 (test code See_Comment [Auto mated = 8074411066) message] The s ystem which generated this result transmitted reference range : 10*3/?L. The reference range was not used to interpret this result as normal/abnormal . GRAN MAT (NEUT) % 74.4 % (test code = 770-8) IMM GRAN % (test code 0.30 % = 6911631900) LYMPH % (test code = 12.1 % 736-9) MONO % (test code = 11.2 % 5905-5) EOS % (test code = 1.7 % 713-8) BASO % (test code = 0.3 % 706-2) GRAN MAT x10^3(ANC) 5.87 10*3/uL 1.99-6.95 (test code = 1022718418) IMM GRAN x10^3 (test 0.00-0.06 code = 3590060341) LYMPH x10^3 (test code 0.95 10*3/uL 1.09-3.23 L = 731-0) MONO x10^3 (test code 0.88 10*3/uL 0.36-1.02 = 742-7) EOS x10^3 (test code = 0.13 10*3/uL 0.06-0.53 711-2) BASO x10^3 (test code 0.01-0.09 = 704-7) Lab Interpretation Abnormal (test code = 27970-3) [facility] WITH [id number] 09:24:48 Test Item Value Reference Range Interpretation Comments WBC (test code = See_Comment [Automated 6690-2) message] The sy stem which generated this result transmitted reference range : 4.20 - 10.70 10*3/?L. The reference range was not used to interpret this result as normal/abnormal . RBC (test code = See_Comment L [Automated 789-8) message] The sy stem which generated this result transmitted reference range : 4.26 - 5.52 10*6/?L. The reference range was not used to interpret this result as normal/abnormal . HGB (test code = 11.2 g/dL 12.2-16.4 L 718-7) HCT (test code = 33.6 % 38.4-49.3 L 4544-3) MCV (test code = 93.3 fL 81.7-95.6 787-2) MCH (test code = 31.1 pg 26.1-32.7 785-6) MCHC (test code = 33.3 g/dL 31.2-35.0 786-4) RDW-SD (test code = 45.6 fL 38.5-51.6 64719-4) RDW-CV (test code = 13.3 % 12.1-15.4 788-0) PLT (test code = See_Comment L [Automated 777-3) message] The sy stem which generated this result transmitted reference range : 150 - 328 10*3/ ?L. The reference r bernadine was not used to interpret this result as normal/abnormal . MPV (test code = 9.0 fL 9.8-13.0 L 71272-8) NRBC/100 WBC (test See_Comment [Automat ed code = 0811308056) message] The system which generated this result transmitted reference range : 0.0 - 10.0 /100 WBCs. The refer ence range was not u sed to interpret th is result as normal/abnormal . NRBC x10^3 (test code See_Comment [Auto mated = 6195625155) message] The s ystem which generated this result transmitted reference range : 10*3/?L. The reference range was not used to interpret this result as normal/abnormal . GRAN MAT (NEUT) % 74.7 % (test code = 770-8) IMM GRAN % (test code 0.10 % = 5890160022) LYMPH % (test code = 12.4 % 736-9) MONO % (test code = 11.0 % 5905-5) EOS % (test code = 1.5 % 713-8) BASO % (test code = 0.3 % 706-2) GRAN MAT x10^3(ANC) 5.91 10*3/uL 1.99-6.95 (test code = 4849359887) IMM GRAN x10^3 (test 0.00-0.06 code = 0828973021) LYMPH x10^3 (test code 0.98 10*3/uL 1.09-3.23 L = 731-0) MONO x10^3 (test code 0.87 10*3/uL 0.36-1.02 = 742-7) EOS x10^3 (test code = 0.12 10*3/uL 0.06-0.53 711-2) BASO x10^3 (test code 0.01-0.09 = 704-7) Lab Interpretation Abnormal (test code = 65705-9) [facility] (NA, K, CL, CO2, GLUCOSE, BUN, CREATININE, CA)2022-05-21 09:01:53 Test Item Value Reference Range Interpretation Comments NA (test code = 131 mmol/L 135-145 L 6259870568) K (test code = 4.9 mmol/L 3.5-5.0 9209954166) CL (test code = 87 mmol/L 98-108 L 0880911028) CO2 TOTAL (test code = 46 mmol/L 23-31 H 5715928262) AGAP (test code = 2-16 L 3997312208) BUN (test code = 13 mg/dL 7-23 2060575065) GLUCOSE (test code = 88 mg/dL 70-110 8507309909) CREATININE (test code = 0.84 mg/dL 0.60-1.25 4643906660) CALCIUM (test code = 8.2 mg/dL 8.6-10.6 L 0861877690) eGFR (test code = mL/min/1.73m2 5307855685) SHWETA (test code = SHWETA) Association of Glomerular Filtration Rate (GFR) and Staging of Kidney Disease* + --+ --+ ------+| GFR (mL/min/1.73 m2) ?| With Kidney Damage ?| ?Without Kidney Damage+ --------+ --------+ +| ?>90 ?| ?Stage one ?| ? Normal ?+ ---+ ---+ -------+| ?60-89 ?| ?Stage two ?| ? Decreased GFR ? + --+ --+ ------+| ?30-59 ?| ?Stage three ?| ? Stage three ? + --+ --+ ------+| ?15-29 ?| ?Stage four ? | ? Stage four ?+ ---+ ---+ -------+| ?<15 (or dialysis) ? ?| ?Stage five ? | ? Stage five ?+ ---+ ---+ -------+ *Each stage assumes the associated GFR level has been in effect for at least three months. ?Stages 1 to 5, with or without kidney disease, indicate chronic kidney disease. Notes: Determination of stages one and two (with eGFR >59mL/min/1.73 m2) requires estimation of kidney damage for at least three months as defined by structural or functional abnormalities of the kidney, manifested by either:Pathological abnormalities or Markers of kidney damage (including abnormalities in the composition of the blood or urine or abnormalities in imaging tests). Lab Interpretation Abnormal (test code = 70584-9) [facility] PAN[facility] (51482) (ALB,T.PRO,BILI T,BU/BC,ALT,AST,ALK PHOS)2022-05-21 08:47:44 Test Item Value Reference Range Interpretation Comments TOTAL BILI (test code = 7722920380) 1.0 mg/dL 0.1-1.1 BILI UNCON (test code = 0906176610) 0.7 mg/dL 0.1-1.1 BILI CONJ (test code = 3235870999) 0.0 mg/dL 0.0-0.3 T PROTEIN (test code = 9321843109) 5.5 g/dL 6.3-8.2 L ALBUMIN (test code = 8358023032) 2.9 g/dL 3.5-5.0 L ALK PHOS (test code = 1619462092) 87 U/L 34-122 ALTv (test code = 1742-6) 16 U/L 5-50 AST(SGOT) (test code = 1014011554) 27 U/L 13-40 Lab Interpretation (test code = Abnormal 09272-1) [facility] HospitalProthrombin Time / [id number] 08:46:44 Test Item Value Reference Range Interpretation Comments PROTIME PATIENT (test See_Comment H [Auto mated message] code = 5964-2) The system [employer] generated this result transmitted ref erence range: 10.1 - 1 2.6 Seconds. The reference range was not used to int erpret this result as normal/abnormal . INR (test code = 6301-6) Nor mal INR <1.1; Warfarin Therap eutic range 2.0 to 3. 0 or 2.5 to 3.5, dep ending upon the indica tions. Lab Interpretation (test Abnormal code = 82374-5) [facility] THRMPLAS [id number] 08:46:44 Test Item Value Reference Range Interpretation Comments APTT Patient (test code = See_Comment [ Automated message] 3173-2) The system [employer] generated this result transmitted ref erence range: 26 - 36 Seconds. The re ference range was not u sed to interpret this result as normal/abnor mal. Lab Interpretation (test Normal code = 32039-4) [facility]FIB[facility]INOGEN2022-12-05 08:46:44 Test Item Value Reference Range Interpretation Comments Fibrinogen (test code = 9690160437) 473 mg/dL 167-453 H Lab Interpretation (test code = Abnormal 28409-9) [facility] + LACTIC [id number] 03:54:15 Test Item Value Reference Range Interpretation Comments PH (test code = 2) 7.35-7.45 L PCO2 (test code = See_Comment H [Automate d 2483725251) message] The sy stem which generated this result transmitted reference range : 35 - 45 mmHg. The reference range was not used to interpret this result as normal/abnormal . PO2 (test code = See_Comment H [Automated 2396889481) message] The sy stem which generated this result transmitted reference range : 80 - 100 mmHg. The reference range was not used to interpret this result as normal/abnormal . HCO3 (test code = See_Comment H [Automate d 1376302276) message] The sy stem which generated this result transmitted reference range : 22 - 26 mEq/L. The reference range was not used to interpret this result as normal/abnormal . BE (test code = See_Comment H [Automated 5412290252) message] The sy stem which generated this result transmitted reference range : -3.0 - 3.0 mEq/ L. The reference r bernadine was not used to interpret this result as normal/abnormal . LACTIC ACID (test code 0.67 mmol/L 0.50-2.20 = 5744348739) Lab Interpretation Abnormal (test code = 07951-1) [facility] metabolic [id number] 04:37:00 Test Item Value Reference Range Interpretation Comments glucose (test code = glucose) 147 mg/dL 82-115 H blood urea nitrogen (test code = 16 mg/dL 8-23 blood urea nitrogen) creatinine (test code = 0.96 mg/dL 0.70-1.20 creatinine) sodium level (test code = sodium 140 mmol/L 135-145 level) potassium level (test code = 4.7 mmol/L 3.5-5.2 potassium level) chloride level (test code = 92 mmol/L 98-108 L chloride level) CO2 (test code = CO2) 45 mmol/L 21-32 H anion gap (test code = anion gap) 7.7 mEq/L 12.0-20.0 L calcium level (test code = calcium 9.1 mg/dL 8.8-10.2 level) [facility] metabolic [id number] 04:37:00 Test Item Value Reference Range Interpretation Comments glucose (test code = glucose) 147 mg/dL 82-115 H blood urea nitrogen (test code = 16 mg/dL 8-23 blood urea nitrogen) osmolality calculated,serum (test 283 mOsm/kg 280-300 code = osmolality calculated,serum) creatinine (test code = 0.96 mg/dL 0.70-1.20 creatinine) glomerular filtration rate (test > 60.00 code = glomerular filtration rate) BUN/creatinine ratio (test code = 16.7 12.0-20.0 BUN/creatinine ratio) sodium level (test code = sodium 140 mmol/L 135-145 level) potassium level (test code = 4.7 mmol/L 3.5-5.2 potassium level) chloride level (test code = 92 mmol/L 98-108 L chloride level) CO2 (test code = CO2) 45 mmol/L 21-32 H anion gap (test code = anion gap) 7.7 mEq/L 12.0-20.0 L calcium level (test code = 9.1 mg/dL 8.8-10.2 calcium level) [facility] Auto Differential panel - [id number] 04:20:00 Test Item Value Reference Range Interpretation Comments white blood count (test code = 6.6 K/uL 4.0-12.3 white blood count) red blood count (test code = red 4.53 M/uL 3.80-5.80 blood count) hemoglobin (test code = 13.8 g/dL 11.7-17.2 hemoglobin) hematocrit (test code = 42.6 % 35.0-51.0 hematocrit) mean corpuscular volume (test code 94.0 fL 83.0-100.0 = mean corpuscular volume) mean corpuscular hemoglobin (test 30.5 pg 26.8-33.4 code = mean corpuscular hemoglobin) mean corpuscular HGB conc (test 32.4 g/dL 30.0-35.0 code = mean corpuscular HGB conc) red cell distribution width (test 11.1 % 12.0-14.0 L code = red cell distribution width) platelet count (test code = 113 K/uL 175-450 L platelet count) ipf# (test code = ipf#) 6.2 ipf% (test code = ipf%) 5.5 % 0-8 mean platelet volume (test code = 10.3 fL 9.4-12.6 mean platelet volume) neutrophils % (test code = 89.1 % 44.7-82.4 H neutrophils %) Ig% (test code = Ig%) 0.5 % 0.0-0.4 H lymphocyte% (test code = 8.0 % 10.0-50.0 L lymphocyte%) mono % (test code = mono %) 2.4 % 3.9-13.4 L eos % (test code = eos %) 0 % 0.0-6.4 basophil % (test code = basophil 0.0 % 0.2-1.2 L %) absolute neutrophil count (test 5.89 K/uL 1.78-5.38 H code = absolute neutrophil count) Ig# (test code = Ig#) 0.03 K/uL 0.00-0.03 lymph # (test code = lymph #) 0.53 K/uL 1.32-3.57 L mono # (test code = mono #) 0.16 K/uL 0.30-0.82 L eos # (test code = eos #) 0.00 K/uL 0.04-0.54 L basophil # (test code = basophil 0.00 K/uL 0.01-0.08 L #) NRBC% (test code = NRBC%) 0 /100 WBC 0-0.2 NRBC# (test code = NRBC#) 0 [facility] [id number] 10:17:00 Test Item Value Reference Range Interpretation Comments RSV xpress (test code = RSV RSV negative xpress) covid-19 inhouse (test code = covid-19 inhouse) flu A (test code = flu A) flu A negative flu B (test code = flu B) flu B negative [facility] [id number] 10:17:00 Test Item Value Reference Range Interpretation Comments RSV xpress (test code = RSV RSV negative xpress) covid-19 inhouse (test code = covid-19 inhouse) flu A (test code = flu A) flu A negative flu B (test code = flu B) flu B [facility] [id number] 10:17:00 Test Item Value Reference Range Interpretation Comments RSV xpress (test code = RSV RSV negative xpress) covid-19 inhouse (test code = covid-19 inhouse) flu A (test code = flu A) flu A negative flu B (test code = flu B) flu B [facility] [id number] 10:17:00 Test Item Value Reference Range Interpretation Comments RSV xpress (test code = RSV RSV negative xpress) covid-19 inhouse (test code = covid-19 inhouse) flu A (test code = flu A) flu A negative flu B (test code = flu B) flu B negative [facility] [id number] 09:50:00 Test Item Value Reference Range Interpretation Comments cardiac troponin T (test code = < 0.011 0.000-0.011 cardiac troponin T) [facility] Auto Differential panel - [id number] 03:40:00 Test Item Value Reference Range Interpretation Comments white blood count (test code = 11.5 K/uL 4.0-12.3 white blood count) red blood count (test code = red 5.94 M/uL 3.80-5.80 H blood count) hemoglobin (test code = 18.9 g/dL 11.7-17.2 H hemoglobin) hematocrit (test code = 57.2 % 35.0-51.0 H hematocrit) MCV [Entitic volume] (test code = 96.3 fL 83.0-100.0 33091-9) mean corpuscular hemoglobin (test 31.8 pg 26.8-33.4 code = mean corpuscular hemoglobin) mean corpuscular HGB conc (test 33.0 g/dL 30.0-35.0 code = mean corpuscular HGB conc) red cell distribution width (test 12.0 % 12.0-14.0 code = red cell distribution width) platelet count (test code = 180 K/uL 175-450 platelet count) mean platelet volume (test code = 9.8 fL 9.4-12.6 mean platelet volume) Segmented neutrophils/100 52.0 % 44.7-82.4 leukocytes in Blood (test code = 07547-4) Immature granulocytes [#/volume] 0.03 K/uL 0.00-0.03 in Blood (test code = 31184-9) lymphocyte% (test code = 30.3 % 10.0-50.0 lymphocyte%) mono % (test code = mono %) 11.1 % 3.9-13.4 eos % (test code = eos %) 5.9 % 0.0-6.4 Basophils/100 leukocytes in 0.4 % 0.2-1.2 Specimen (test code = 69289-3) Band form neutrophils [#/volume] 5.96 K/uL 1.78-5.38 H in Blood (test code = 72733-5) Lymphocytes [#/volume] in Specimen 3.47 K/uL 1.32-3.57 by Automated count (test code = 40726-8) mono # (test code = mono #) 1.27 K/uL 0.30-0.82 H eos # (test code = eos #) 0.68 K/uL 0.04-0.54 H basophil # (test code = basophil 0.05 K/uL 0.01-0.08 #) NRBC% (test code = NRBC%) 0 /100 WBC 0-0.2 NRBC# (test code = NRBC#) 0 K/uL [facility] - [facility] or Plasma 2021-10-11 03:40:00 Test Item Value Reference Range Interpretation Comments Glucose [Mass/volume] in Serum or 122 mg/dL 82-115 H Plasma (test code = 2345-7) Urea nitrogen [Mass/volume] in 8 mg/dL 8-23 Serum or Plasma (test code = 3094-0) osmolality calculated,serum (test 268 mOsm/kg 280-300 L code = osmolality calculated,serum) creatinine (test code = 0.84 mg/dL 0.70-1.20 creatinine) glomerular filtration rate (test >60.00 code = glomerular filtration rate) Urea nitrogen/Creatinine [Mass 9.5 12.0-20.0 L Ratio] in Serum or Plasma (test code = 3097-3) sodium level (test code = sodium 134 mmol/L 135-145 L level) potassium level (test code = 3.9 mmol/L 3.5-5.2 potassium level) chloride level (test code = 92 mmol/L 98-108 L chloride level) CO2 (test code = CO2) 30 mmol/L 21-32 anion gap (test code = anion gap) 15.9 mEq/L 12.0-20.0 calcium level (test code = 9.5 mg/dL 8.8-10.2 calcium level) total protein (test code = total 8.5 g/dL 6.6-8.7 protein) albumin (test code = albumin) 4.8 g/dL 3.5-5.2 globulin (test code = globulin) 3.7 g/dL 1.5-4.5 A/G ratio (test code = A/G ratio) 1.3 >1.0 bilirubin,total (test code = 0.7 mg/dL 0.0-1.2 bilirubin,total) AST/SGOT (test code = AST/SGOT) 22 U/L 15-40 Alanine aminotransferase 15 U/L 0-41 [Enzymatic activity/volume] in Serum or Plasma (test code = 1742-6) Alkaline phosphatase [Enzymatic 121 U/L 40-130 activity/volume] in Serum or Plasma (test code = 6768-6) [facility] Auto Differential panel - [id number] 03:40:00 Test Item Value Reference Range Interpretation Comments white blood count (test code = 11.5 K/uL 4.0-12.3 white blood count) red blood count (test code = red 5.94 M/uL 3.80-5.80 H blood count) hemoglobin (test code = 18.9 g/dL 11.7-17.2 H hemoglobin) hematocrit (test code = 57.2 % 35.0-51.0 H hematocrit) MCV [Entitic volume] (test code = 96.3 fL 83.0-100.0 70026-8) mean corpuscular hemoglobin (test 31.8 pg 26.8-33.4 code = mean corpuscular hemoglobin) mean corpuscular HGB conc (test 33.0 g/dL 30.0-35.0 code = mean corpuscular HGB conc) red cell distribution width (test 12.0 % 12.0-14.0 code = red cell distribution width) platelet count (test code = 180 K/uL 175-450 platelet count) mean platelet volume (test code = 9.8 fL 9.4-12.6 mean platelet volume) Segmented neutrophils/100 52.0 % 44.7-82.4 leukocytes in Blood (test code = 48132-2) Immature granulocytes [#/volume] 0.03 K/uL 0.00-0.03 in Blood (test code = 02408-3) lymphocyte% (test code = 30.3 % 10.0-50.0 lymphocyte%) mono % (test code = mono %) 11.1 % 3.9-13.4 eos % (test code = eos %) 5.9 % 0.0-6.4 Basophils/100 leukocytes in 0.4 % 0.2-1.2 Specimen (test code = 52547-2) Band form neutrophils [#/volume] 5.96 K/uL 1.78-5.38 H in Blood (test code = 48502-5) Lymphocytes [#/volume] in Specimen 3.47 K/uL 1.32-3.57 by Automated count (test code = 07122-8) mono # (test code = mono #) 1.27 K/uL 0.30-0.82 H eos # (test code = eos #) 0.68 K/uL 0.04-0.54 H basophil # (test code = basophil 0.05 K/uL 0.01-0.08 #) NRBC% (test code = NRBC%) 0 /100 WBC 0-0.2 NRBC# (test code = NRBC#) 0 K/uL [facility] - [facility] or Plasma 2021-10-11 03:40:00 Test Item Value Reference Range Interpretation Comments Glucose [Mass/volume] in Serum or 122 mg/dL 82-115 H Plasma (test code = 2345-7) Urea nitrogen [Mass/volume] in 8 mg/dL 8-23 Serum or Plasma (test code = 3094-0) osmolality calculated,serum (test 268 mOsm/kg 280-300 L code = osmolality calculated,serum) creatinine (test code = 0.84 mg/dL 0.70-1.20 creatinine) glomerular filtration rate (test >60.00 code = glomerular filtration rate) Urea nitrogen/Creatinine [Mass 9.5 12.0-20.0 L Ratio] in Serum or Plasma (test code = 3097-3) sodium level (test code = sodium 134 mmol/L 135-145 L level) potassium level (test code = 3.9 mmol/L 3.5-5.2 potassium level) chloride level (test code = 92 mmol/L 98-108 L chloride level) CO2 (test code = CO2) 30 mmol/L 21-32 anion gap (test code = anion gap) 15.9 mEq/L 12.0-20.0 calcium level (test code = 9.5 mg/dL 8.8-10.2 calcium level) total protein (test code = total 8.5 g/dL 6.6-8.7 protein) albumin (test code = albumin) 4.8 g/dL 3.5-5.2 globulin (test code = globulin) 3.7 g/dL 1.5-4.5 A/G ratio (test code = A/G ratio) 1.3 >1.0 bilirubin,total (test code = 0.7 mg/dL 0.0-1.2 bilirubin,total) AST/SGOT (test code = AST/SGOT) 22 U/L 15-40 Alanine aminotransferase 15 U/L 0-41 [Enzymatic activity/volume] in Serum or Plasma (test code = 1742-6) Alkaline phosphatase [Enzymatic 121 U/L 40-130 activity/volume] in Serum or Plasma (test code = 6768-6) [facility] [id number] 00:00:00 Test Item Value Reference Range Interpretation Comments Troponin T.cardiac [Presence] in Blood <0.011 0.000-0.011 (test code = 04032-2) [facility] [id number] 00:00:00 Test Item Value Reference Range Interpretation Comments Troponin T.cardiac [Presence] in Blood <0.011 0.000-0.011 (test code = 39230-4) [facility] W Auto Differential panel - [id number] 09:48:00 Test Item Value Reference Range Interpretation Comments white blood count (test code = 8.4 K/uL 4.0-12.3 white blood count) red blood count (test code = red 5.70 M/uL 3.80-5.80 blood count) hemoglobin (test code = 17.6 g/dL 11.7-17.2 H hemoglobin) hematocrit (test code = 54.1 % 35.0-51.0 H hematocrit) MCV [Entitic volume] (test code = 94.9 fL 83.0-100.0 96826-6) mean corpuscular hemoglobin (test 30.9 pg 26.8-33.4 code = mean corpuscular hemoglobin) mean corpuscular HGB conc (test 32.5 g/dL 30.0-35.0 code = mean corpuscular HGB conc) red cell distribution width (test 12.5 % 12.0-14.0 code = red cell distribution width) platelet count (test code = 174 K/uL 175-450 L platelet count) mean platelet volume (test code = 9.5 fL 9.4-12.6 mean platelet volume) Segmented neutrophils/100 67.8 % 44.7-82.4 leukocytes in Blood (test code = 87919-0) Immature granulocytes [#/volume] 0.02 K/uL 0.00-0.03 in Blood (test code = 52838-0) lymphocyte% (test code = 15.1 % 10.0-50.0 lymphocyte%) mono % (test code = mono %) 12.3 % 3.9-13.4 eos % (test code = eos %) 4.2 % 0.0-6.4 Basophils/100 leukocytes in 0.4 % 0.2-1.2 Specimen (test code = 20042-5) Band form neutrophils [#/volume] 5.67 K/uL 1.78-5.38 H in Blood (test code = 92584-0) Lymphocytes [#/volume] in Specimen 1.26 K/uL 1.32-3.57 L by Automated count (test code = 84996-1) mono # (test code = mono #) 1.03 K/uL 0.30-0.82 H eos # (test code = eos #) 0.35 K/uL 0.04-0.54 basophil # (test code = basophil 0.03 K/uL 0.01-0.08 #) NRBC% (test code = NRBC%) 0 /100 WBC 0-0.2 NRBC# (test code = NRBC#) 0 K/uL [facility] metabolic 2000 panel - Serum or [id number] 09:48:00 Test Item Value Reference Range Interpretation Comments Glucose [Mass/volume] in Serum or 88 mg/dL 82-115 Plasma (test code = 2345-7) Urea nitrogen [Mass/volume] in 8 mg/dL 8-23 Serum or Plasma (test code = 3094-0) osmolality calculated,serum (test 266 mOsm/kg 280-300 L code = osmolality calculated,serum) creatinine (test code = 0.81 mg/dL 0.70-1.20 creatinine) glomerular filtration rate (test >60.00 code = glomerular filtration rate) Urea nitrogen/Creatinine [Mass 9.9 12.0-20.0 L Ratio] in Serum or Plasma (test code = 3097-3) sodium level (test code = sodium 134 mmol/L 135-145 L level) potassium level (test code = 4.2 mmol/L 3.5-5.2 potassium level) chloride level (test code = 94 mmol/L 98-108 L chloride level) CO2 (test code = CO2) 29 mmol/L 21-32 anion gap (test code = anion gap) 15.2 mEq/L 12.0-20.0 calcium level (test code = 9.2 mg/dL 8.8-10.2 calcium level) [facility] - [id number] 00:00:00NeutrophilsBandLymphocyteAtypical LymphMonocyteEosinophilBasophilMetamyelocyteMyelocytePromyelocyteBlastsNucleated Red Blood CellAbs Neutrophil Count (Man)Abs Lymph Count (Man)Abs Monocyte Count (Man)Abs Eosinophil Count (Man)Abs Basophil Count (Man)Platelet EstimatePlatelet MorphologyHypochromasiaPoikilocytosisAnisocytosisMicrocytosisMacrocytosis [facility] Auto Differential panel - [id number] 09:52:00 Test Item Value Reference Range Interpretation Comments white blood count (test code = 7.6 K/uL 4.0-12.3 white blood count) red blood count (test code = red 6.35 M/uL 3.80-5.80 H blood count) hemoglobin (test code = 19.0 g/dL 11.7-17.2 hemoglobin) hematocrit (test code = 58.4 % 35.0-51.0 hematocrit) MCV [Entitic volume] (test code = 92.0 fL 83-100 57619-5) mean corpuscular hemoglobin (test 29.9 pg 26.8-33.4 code = mean corpuscular hemoglobin) mean corpuscular HGB conc (test 32.5 g/dL 30-35 code = mean corpuscular HGB conc) red cell distribution width (test 12.3 % 12.0-14.0 code = red cell distribution width) platelet count (test code = 159 K/uL 175-450 L platelet count) mean platelet volume (test code = 9.8 fL 9.4-12.6 mean platelet volume) Segmented neutrophils/100 62.7 % 44.7-82.4 leukocytes in Blood (test code = 46847-2) Immature granulocytes [#/volume] 0.0 K/uL 0.0-0.03 in Blood (test code = 21151-6) lymphocyte% (test code = 19.9 % 10.0-50.0 lymphocyte%) mono % (test code = mono %) 13.0 % 3.9-13.4 eos % (test code = eos %) 3.7 % 0.0-6.4 Basophils/100 leukocytes in 0.4 % 0.2-1.2 Unspecified specimen (test code = 40298-8) Band form neutrophils [#/volume] 4.77 K/uL 1.78-5.38 in Blood (test code = 97533-1) Lymphocytes [#/volume] in 1.5 K/uL 1.32-3.57 Unspecified specimen by Automated count (test code = 99715-1) mono # (test code = mono #) 0.99 K/uL 0.30-0.82 H eos # (test code = eos #) 0.28 K/uL 0.04-0.54 basophil # (test code = basophil 0.03 K/uL 0.01-0.08 #) NRBC% (test code = NRBC%) 0 /100 WBC 0-0.2 NRBC# (test code = NRBC#) 0 K/uL [facility] method unspecified - [id number] 00:00:00NeutrophilsBandLymphocyteAtypical LymphMonocyteEosinophilBasophilAbs Neutrophil Count (Man)Abs LymphCount (Man)Abs Monocyte Count (Man)Abs Eosinophil Count (Man)Abs Basophil Count (Man)Platelet EstimatePlatelet Morphology [facility] - [id number] 08:38:00 Test Item Value Reference Range Interpretation Comments Blood type and Crossmatch unit number: panel - Blood (test code [id number] = 97632-2) [place]0021-08-16 08:38:00[facility] 08:38:00Results[place] [address]0021-08-16 08:38:00Results [place] [address]0021-08-16 08:38[facility] - [id number] 04:31:00 Test Item Value Reference Range Interpretation Comments Rh [Type] in Blood (test code = 4+ 69237-1) ABO and Rh group panel - Blood O positive (test code = 17787-9) [facility] W Auto Differential panel - [id number] 01:30:00 Test Item Value Reference Range Interpretation Comments white blood count (test code = 8.9 K/uL 4.0-12.3 white blood count) red blood count (test code = red 3.56 M/uL 3.80-5.80 L blood count) hemoglobin (test code = 7.8 g/dL 11.7-17.2 L hemoglobin) hematocrit (test code = 27.2 % 35.0-51.0 L hematocrit) MCV [Entitic volume] (test code = 76.4 fL 83-100 L 98357-6) mean corpuscular hemoglobin (test 21.9 pg 26.8-33.4 L code = mean corpuscular hemoglobin) mean corpuscular HGB conc (test 28.7 g/dL 30-35 L code = mean corpuscular HGB conc) red cell distribution width (test 23.4 % 12.0-14.0 H code = red cell distribution width) platelet count (test code = 183 K/uL 175-450 platelet count) mean platelet volume (test code = 10.0 fL 9.4-12.6 mean platelet volume) NRBC% (test code = NRBC%) 1 /100 WBC 0-0.2 H NRBC# (test code = NRBC#) 0 K/uL [facility], method unspecified - [id number] 01:30:00 Test Item Value Reference Range Interpretation Comments Neutrophils [#/volume] in Blood by 73 % 37.0-80.0 Automated count (test code = 751-8) Band form neutrophils/100 0 % 0-3 leukocytes in Blood by Manual count (test code = 764-1) lymphocyte (test code = lymphocyte) 21 % 10-50 atypical lymph (test code = 0 % atypical lymph) Monocytes [#/volume] in Blood by 5 % 0-12 Manual count (test code = 743-5) eosinophil (test code = eosinophil) 1 % 0-7 Basophils/100 leukocytes in 0 % 0-3 Unspecified specimen by Manual count (test code = 51189-3) metamyelocyte (test code = metamyelocyte) nucleated red blood cell (test code = nucleated red blood cell) abs neutrophil count (man) (test 6.40 K/uL 1.78-5.38 H code = abs neutrophil count (man)) abs lymph count (man) (test code = 1.80 K/uL 1.32-3.57 abs lymph count (man)) abs monocyte count (man) (test code 0.40 K/uL 0.30-0.82 = abs monocyte count (man)) abs eosinophil count (man) (test 0.00 K/uL 0.04-0.54 L code = abs eosinophil count (man)) abs basophil count (man) (test code 0.00 K/uL 0.01-0.08 L = abs basophil count (man)) Platelets [#/volume] in Blood by normal normal Automated count (test code = 777-3) Hypochromia [Presence] in Blood =2 H (test code = 78757-1) Basophilic stippling [Presence] in Blood by Light microscopy (test code = 703-9) Anisocytosis [Presence] in Blood =2 H (test code = 76200-8) microcytosis (test code = =1 microcytosis) [facility] metabolic 2000 panel - Serum or [id number] 01:30:00 Test Item Value Reference Range Interpretation Comments Glucose [Mass/volume] in Serum or 94 mg/dL 82-115 Plasma (test code = 2345-7) Urea nitrogen [Mass/volume] in 18 mg/dL 8-23 Serum or Plasma (test code = 3094-0) osmolality calculated,serum (test 272 mOsm/kg 280-300 L code = osmolality calculated,serum) creatinine (test code = 1.3 mg/dL 0.70-1.20 H creatinine) glomerular filtration rate (test 55.40 L code = glomerular filtration rate) Urea nitrogen/Creatinine [Mass 13.8 12-20 Ratio] in Serum or Plasma (test code = 3097-3) sodium level (test code = sodium 135 mmol/L 135-145 level) potassium level (test code = 4.0 mmol/L 3.5-5.2 potassium level) chloride level (test code = 96 mmol/L 98-108 L chloride level) CO2 (test code = CO2) 31 mmol/L 21-32 anion gap (test code = anion gap) 12.0 mEq/L 12-20 calcium level (test code = 8.5 mg/dL 8.8-10.2 L calcium level) [facility] W Auto Differential panel - [id number] 01:03:00 Test Item Value Reference Range Interpretation Comments white blood count (test code = 9.8 K/uL 4.0-12.3 white blood count) red blood count (test code = red 3.73 M/uL 3.80-5.80 L blood count) hemoglobin (test code = 8.4 g/dL 11.7-17.2 L hemoglobin) hematocrit (test code = 28.4 % 35.0-51.0 L hematocrit) MCV [Entitic volume] (test code = 76.1 fL 83-100 L 71558-0) mean corpuscular hemoglobin (test 22.5 pg 26.8-33.4 L code = mean corpuscular hemoglobin) mean corpuscular HGB conc (test 29.6 g/dL 30-35 L code = mean corpuscular HGB conc) red cell distribution width (test 22.6 % 12.0-14.0 H code = red cell distribution width) platelet count (test code = 215 K/uL 175-450 platelet count) mean platelet volume (test code = 10.4 fL 9.4-12.6 mean platelet volume) Segmented neutrophils/100 74.3 % 44.7-82.4 leukocytes in Blood (test code = 13039-1) Immature granulocytes [#/volume] 0.1 K/uL 0.0-0.03 H in Blood (test code = 30578-7) lymphocyte% (test code = 13.2 % 10.0-50.0 lymphocyte%) mono % (test code = mono %) 11.8 % 3.9-13.4 eos % (test code = eos %) 0.1 % 0.0-6.4 Basophils/100 leukocytes in 0.1 % 0.2-1.2 L Unspecified specimen (test code = 49771-1) Band form neutrophils [#/volume] 7.29 K/uL 1.78-5.38 H in Blood (test code = 88873-6) Lymphocytes [#/volume] in 1.3 K/uL 1.32-3.57 L Unspecified specimen by Automated count (test code = 54074-5) mono # (test code = mono #) 1.16 K/uL 0.30-0.82 H eos # (test code = eos #) 0.01 K/uL 0.04-0.54 L basophil # (test code = basophil 0.01 K/uL 0.01-0.08 #) NRBC% (test code = NRBC%) 1 /100 WBC 0-0.2 H NRBC# (test code = NRBC#) 0 K/uL [facility] metabolic 2000 panel - Serum or [id number] 01:03:00 Test Item Value Reference Range Interpretation Comments Glucose [Mass/volume] in Serum or 96 mg/dL 82-115 Plasma (test code = 2345-7) Urea nitrogen [Mass/volume] in 19 mg/dL 8-23 Serum or Plasma (test code = 3094-0) osmolality calculated,serum (test 270 mOsm/kg 280-300 L code = osmolality calculated,serum) creatinine (test code = 1.2 mg/dL 0.70-1.20 creatinine) glomerular filtration rate (test >60.00 code = glomerular filtration rate) Urea nitrogen/Creatinine [Mass 15.8 12-20 Ratio] in Serum or Plasma (test code = 3097-3) sodium level (test code = sodium 134 mmol/L 135-145 L level) potassium level (test code = 3.9 mmol/L 3.5-5.2 potassium level) chloride level (test code = 97 mmol/L 98-108 L chloride level) CO2 (test code = CO2) 29 mmol/L 21-32 anion gap (test code = anion gap) 11.9 mEq/L 12-20 L calcium level (test code = 8.3 mg/dL 8.8-10.2 L calcium level) [facility] W Auto Differential panel - [id number] 08:28:00 Test Item Value Reference Range Interpretation Comments white blood count (test code = 7.3 K/uL 4.0-12.3 white blood count) red blood count (test code = red 3.37 M/uL 3.80-5.80 L blood count) hemoglobin (test code = 7.4 g/dL 11.7-17.2 hemoglobin) hematocrit (test code = 25.1 % 35.0-51.0 L hematocrit) MCV [Entitic volume] (test code = 74.5 fL 83-100 L 22938-5) mean corpuscular hemoglobin (test 22.0 pg 26.8-33.4 L code = mean corpuscular hemoglobin) mean corpuscular HGB conc (test 29.5 g/dL 30-35 L code = mean corpuscular HGB conc) red cell distribution width (test 22.2 % 12.0-14.0 H code = red cell distribution width) platelet count (test code = 227 K/uL 175-450 platelet count) mean platelet volume (test code = 9.8 fL 9.4-12.6 mean platelet volume) NRBC% (test code = NRBC%) 2 /100 WBC 0-0.2 H NRBC# (test code = NRBC#) 0 K/uL [facility] method unspecified - [id number] 08:28:00 Test Item Value Reference Range Interpretation Comments Neutrophils [#/volume] in Blood by 85 % 37.0-80.0 H Automated count (test code = 751-8) Band form neutrophils/100 0 % 0-3 leukocytes in Blood by Manual count (test code = 764-1) lymphocyte (test code = 7 % 10-50 L lymphocyte) atypical lymph (test code = 0 % atypical lymph) Monocytes [#/volume] in Blood by 8 % 0-12 Manual count (test code = 743-5) eosinophil (test code = 0 % 0-7 eosinophil) Basophils/100 leukocytes in 0 % 0-3 Unspecified specimen by Manual count (test code = 59560-8) metamyelocyte (test code = metamyelocyte) myelocyte (test code = myelocyte) promyelocyte (test code = promyelocyte) blasts (test code = blasts) nucleated red blood cell (test 4 /100 WBC H code = nucleated red blood cell) abs neutrophil count (man) (test 6.20 K/uL 1.78-5.38 H code = abs neutrophil count (man)) abs lymph count (man) (test code = 0.50 K/uL 1.32-3.57 L abs lymph count (man)) abs monocyte count (man) (test 0.50 K/uL 0.30-0.82 code = abs monocyte count (man)) abs eosinophil count (man) (test 0.00 K/uL 0.04-0.54 L code = abs eosinophil count (man)) abs basophil count (man) (test 0.00 K/uL 0.01-0.08 L code = abs basophil count (man)) Platelets [#/volume] in Blood by normal normal Automated count (test code = 777-3) Hypochromia [Presence] in Blood =2 H (test code = 45143-6) poikilocytosis (test code = =1 H poikilocytosis) Anisocytosis [Presence] in Blood =2 H (test code = 73312-9) microcytosis (test code = microcytosis) Macrocytes [Presence] in Blood (test code = 24513-8) Toxic granules [Presence] in Blood by Light microscopy (test code = 803-7) Neutrophils.hypersegmented [#/volume] in Blood (test code = 15468-0) [facility] metabolic 2000 panel - Serum or [id number] 08:28:00 Test Item Value Reference Range Interpretation Comments Glucose [Mass/volume] in Serum or 123 mg/dL 82-115 H Plasma (test code = 2345-7) Urea nitrogen [Mass/volume] in 18 mg/dL 8-23 Serum or Plasma (test code = 3094-0) osmolality calculated,serum (test 264 mOsm/kg 280-300 L code = osmolality calculated,serum) creatinine (test code = 1.1 mg/dL 0.70-1.20 creatinine) glomerular filtration rate (test >60.00 code = glomerular filtration rate) Urea nitrogen/Creatinine [Mass 16.4 12-20 Ratio] in Serum or Plasma (test code = 3097-3) sodium level (test code = sodium 130 mmol/L 135-145 L level) potassium level (test code = 4.6 mmol/L 3.5-5.2 potassium level) chloride level (test code = 94 mmol/L 98-108 L chloride level) CO2 (test code = CO2) 27 mmol/L 21-32 anion gap (test code = anion gap) 13.6 mEq/L 12-20 calcium level (test code = 8.7 mg/dL 8.8-10.2 L calcium level) [facility] - [id number] 12:36:00 Test Item Value Reference Range Interpretation Comments Blood type and Crossmatch unit number: panel - Blood (test code [id number] = 40181-4) [place] [address]0021-08-13 12:36:00[facility] 12:36:00Results[place] [address]0021-08-13 12:36:00Results [facility] Nqtklwvp4336-22-30 12:36:[facility] 12:36:[facility] Ekqloigf8839-07-59 12:36:00Results [facility] Hywliagk1918-68-83 12:36:00[facility] 2021-01-27 12:36:00[facility] Lwikqnbm5243-75-43 12:36:00Results [facility] Fdpbcaky4242-76-26 12:36:00[facility] 2021-01-27 12:36:00[facility] Cmvxrjom1080-30-03 12:36:00Results [facility] Kggkjdqv1664-57-54 12:36:00[facility] 2021-01-27 12:36:00[facility] Vpxzoeyy4154-09-54 12:36:00Results [facility] Zbbcwnay3406-23-41 12:36:00[facility] 2021-01-27 12:36:00[facility] Kktewusv0920-06-47 12:36:00Results [facility] Jymvrgxq4972-05-33 12:36:00[facility] 2021-01-27 12:36:00[facility] Nizocgmh2347-56-30 12:36:00Results [facility] Igjcbqhl0505-46-16 12:36:00[facility] 2021-01-27 12:36:00[facility] Hfrresok9172-09-79 12:36:00Results [facility] Hkizpgex2006-50-16 12:36:00Results[facility] 2021-01-27 12:36:00ResultsMaJames [place] 19509-08-13 12:36:00Results [place] [address]0021-08-13 12:36:[facility]27 12:36:[facility] [place] [address]Jtnscivf7486-59-19 12:36:00Results [place] [address]0021-08-13 12:36:00[facility] 12:36:00Results[place]0021-08-13 12:36:00Results [place] 19690021-08-13 12:36:[facility] 2021-[facility] 12:36:00Results[place]0021-08-13 12:36:00Results [place] [address]0021-08-13 12:36:00[facility] 2021-[facility]-27 12:36:00Results[place]0021-08-13 12:36:00Results [place] [address]0021-08-13 12:36:00[facility] 2021-[facility]-27 12:36:00Results[place]-08-13 12:36:00Results [place] [address]0021-08-13 12:36:00[facility] 2021-[facility]-27 12:36:00Results[place] [address]-08-13 12:36:00Results [facility] - [id number] 10:04:00 Test Item Value Reference Range Interpretation Comments hemoglobin (test code = hemoglobin) 5.9 g/dL 11.7-17.2 hematocrit (test code = hematocrit) 21.0 % 35.0-51.0 [facility] - Blood 2021-01-27 09:41:00 Test Item Value Reference Range Interpretation Comments Rh [Type] in Blood (test code = 4+ 20429-4) ABO and Rh group panel - Blood O positive (test code = 20892-9) [facility] RNA [Presence] in Respiratory specimen by LOW with probe [id number] 08:37:6455756-6Lbglszjjg Medical GroupCBC W Auto Differential panel - [id number] 08:37:00 Test Item Value Reference Range Interpretation Comments white blood count (test code = 7.3 K/uL 4.0-12.3 white blood count) red blood count (test code = red 2.26 M/uL 3.80-5.80 L blood count) hemoglobin (test code = 3.9 g/dL 11.7-17.2 hemoglobin) hematocrit (test code = 15.2 % 35.0-51.0 hematocrit) MCV [Entitic volume] (test code = 67.3 fL 83-100 L 75416-5) mean corpuscular hemoglobin (test 17.3 pg 26.8-33.4 L code = mean corpuscular hemoglobin) mean corpuscular HGB conc (test 25.7 g/dL 30-35 L code = mean corpuscular HGB conc) red cell distribution width (test 17.7 % 12.0-14.0 H code = red cell distribution width) platelet count (test code = 234 K/uL 175-450 platelet count) mean platelet volume (test code = 9.2 fL 9.4-12.6 L mean platelet volume) NRBC% (test code = NRBC%) 1 /100 WBC 0-0.2 H NRBC# (test code = NRBC#) 0 K/uL [facility], method unspecified - [id number] 08:37:00 Test Item Value Reference Range Interpretation Comments Neutrophils [#/volume] in Blood by 85 % 37.0-80.0 H Automated count (test code = 751-8) Band form neutrophils/100 0 % 0-3 leukocytes in Blood by Manual count (test code = 764-1) lymphocyte (test code = lymphocyte) 8 % 10-50 L atypical lymph (test code = 0 % atypical lymph) Monocytes [#/volume] in Blood by 7 % 0-12 Manual count (test code = 743-5) eosinophil (test code = eosinophil) 0 % 0-7 Basophils/100 leukocytes in 0 % 0-3 Unspecified specimen by Manual count (test code = 46120-0) metamyelocyte (test code = metamyelocyte) myelocyte (test code = myelocyte) promyelocyte (test code = promyelocyte) blasts (test code = blasts) nucleated red blood cell (test code = nucleated red blood cell) abs neutrophil count (man) (test 6.20 K/uL 1.78-5.38 H code = abs neutrophil count (man)) abs lymph count (man) (test code = 0.50 K/uL 1.32-3.57 L abs lymph count (man)) abs monocyte count (man) (test code 0.50 K/uL 0.30-0.82 = abs monocyte count (man)) abs eosinophil count (man) (test 0.00 K/uL 0.04-0.54 L code = abs eosinophil count (man)) abs basophil count (man) (test code 0.00 K/uL 0.01-0.08 L = abs basophil count (man)) Platelets [#/volume] in Blood by normal normal Automated count (test code = 777-3) Hypochromia [Presence] in Blood =2 H (test code = 80346-6) poikilocytosis (test code = slight H poikilocytosis) Anisocytosis [Presence] in Blood =1 H (test code = 17669-7) microcytosis (test code = =2 microcytosis) Toxic granules [Presence] in Blood =1 H by Light microscopy (test code = 803-7) [facility] - Serum or Plasma 2021-01-27 08:37:00 Test Item Value Reference Range Interpretation Comments glucose (test code = glucose) 110 mg/dL 82-115 Urea nitrogen [Mass/volume] in 16 mg/dL 8-23 Serum or Plasma (test code = 3094-0) osmolality calculated,serum (test 259 mOsm/kg 280-300 L code = osmolality calculated,serum) creatinine (test code = 1.0 mg/dL 0.70-1.20 creatinine) glomerular filtration rate (test >60.00 code = glomerular filtration rate) Urea nitrogen/Creatinine [Mass 16.0 12-20 Ratio] in Serum or Plasma (test code = 3097-3) sodium level (test code = sodium 128 mmol/L 135-145 L level) Potassium [Moles/volume] in Body 4.7 mmol/L 3.5-5.2 fluid (test code = 2821-7) chloride level (test code = 93 mmol/L 98-108 L chloride level) CO2 (test code = CO2) 27 mmol/L 21-32 anion gap (test code = anion gap) 12.7 mEq/L 12-20 calcium level (test code = 8.4 mg/dL 8.8-10.2 L calcium level) total protein (test code = total 7.1 g/dL 6.6-8.7 protein) albumin (test code = albumin) 3.9 g/dL 3.5-5.2 globulin (test code = globulin) 3.2 gm/dL A/G ratio (test code = A/G ratio) 1.2 >1.0 bilirubin,total (test code = 0.8 mg/dL 0.0-1.2 bilirubin,total) AST/SGOT (test code = AST/SGOT) 16 U/L 15-40 Alanine aminotransferase 9 U/L 0-41 [Enzymatic activity/volume] in Serum or Plasma (test code = 1742-6) Alkaline phosphatase [Enzymatic 76 U/L 40-130 activity/volume] in Serum or Plasma (test code = 6768-6) [facility] [Enzymatic activity/volume] in Serum or [id number] 08:37:00 Test Item Value Reference Range Interpretation Comments creatine kinase (test code = creatine 85 U/L 20-200 kinase) [facility]PT[facility][id number] 08:37:00 Test Item Value Reference Range Interpretation Comments prothrombin time (test code = 13.2 seconds 10.3-12.3 H prothrombin time) INR in Blood by Coagulation 1.25 assay (test code = 90520-4) [facility] [id number] 08:37:00 Test Item Value Reference Range Interpretation Comments INR in Blood by Coagulation 28.2 seconds 22.5-37.0 assay (test code = 17134-2) [facility] I.cardiac [Mass/volume] in [id number] 08:37:00 Test Item Value Reference Range Interpretation Comments cardiac troponin I (test code = cardiac <0.30 0.0-0.5 troponin I) [facility] kinase.MB [Mass/volume] in Serum or Plasma 2021-01-27 08:37:00 Test Item Value Reference Range Interpretation Comments Creatine kinase.MB [Mass/volume] in 3.8 NG/mL 0.0-3.6 H Serum or Plasma by Immunoassay (test code = 57048-7) [facility] binding [facility] panel - Serum or Plasma 2021-01-27 08:37:00 Test Item Value Reference Range Interpretation Comments iron (fe) (test code = iron (fe)) 9 ug/dL 59-158 L total iron binding capacity (test 416 ug/dL 260-445 code = total iron binding capacity) Iron saturation [Molar fraction] in 2 % 15-50 L Serum or Plasma (test code = 80583-8) [facility] W Auto Differential panel - [id number] 00:00:00 Test Item Value Reference Range Interpretation Comments white blood count (test code = 8.4 K/uL 4.0-12.3 white blood count) red blood count (test code = red 4.15 M/uL 3.80-5.80 blood count) hemoglobin (test code = 10.8 g/dL 11.7-17.2 hemoglobin) hematocrit (test code = 36.2 % 35.0-51.0 hematocrit) MCV [Entitic volume] (test code = 87.2 fL 83-100 31140-0) mean corpuscular hemoglobin (test 26.0 pg 26.8-33.4 L code = mean corpuscular hemoglobin) mean corpuscular HGB conc (test 29.8 g/dL 30-35 L code = mean corpuscular HGB conc) red cell distribution width (test 13.6 % 12.0-14.0 code = red cell distribution width) platelet count (test code = 275 K/uL 175-450 platelet count) mean platelet volume (test code = 10.1 fL 9.4-12.6 mean platelet volume) Segmented neutrophils/100 62.4 % 44.7-82.4 leukocytes in Blood (test code = 29807-9) Immature granulocytes [#/volume] 0.0 K/uL 0.0-0.03 in Blood (test code = 43371-5) lymphocyte% (test code = 19.2 % 10.0-50.0 lymphocyte%) mono % (test code = mono %) 12.5 % 3.9-13.4 eos % (test code = eos %) 5.3 % 0.0-6.4 Basophils/100 leukocytes in 0.4 % 0.2-1.2 Unspecified specimen (test code = 03735-6) Band form neutrophils [#/volume] 5.23 K/uL 1.78-5.38 in Blood (test code = 38438-1) Lymphocytes [#/volume] in 1.6 K/uL 1.32-3.57 Unspecified specimen by Automated count (test code = 37528-7) mono # (test code = mono #) 1.05 K/uL 0.30-0.82 H eos # (test code = eos #) 0.44 K/uL 0.04-0.54 basophil # (test code = basophil 0.03 K/uL 0.01-0.08 #) NRBC% (test code = NRBC%) 0 /100 WBC 0-0.2 NRBC# (test code = NRBC#) 0 K/uL [facility] HospitalDifferential panel, method unspecified - [id number] 00:00:00NeutrophilsBandLymphocyteAtypical LymphMonocyteEosinophilBasophilMetamyelocyteMyelocytePromyelocyteBlastsNucleated Red Blood CellPlasma CellAbs Neutrophil Count (Man)Abs Lymph Count (Man)Abs Monocyte Count (Man)Abs Eosinophil Count (Man)Abs Basophil Count (Man)Platelet EstimatePlatelet MorphologyHypoch romasiaPoikilocytosisAnisocytosisMacrocytosisTarget CellsStomatocyteToxic GranulationHypersegmented PolysToxic VacuolationGiant PlateletsMataBarre City Hospital GroupComprehensive metabolic 2000 panel - Serum or [id number] 00:00:00 Test Item Value Reference Range Interpretation Comments Glucose [Mass/volume] in Serum or 121 mg/dL 82-115 H Plasma (test code = 2345-7) Urea nitrogen [Mass/volume] in 9 mg/dL 8-23 Serum or Plasma (test code = 3094-0) osmolality calculated,serum (test 272 mOsm/kg 280-300 L code = osmolality calculated,serum) creatinine (test code = 0.9 mg/dL 0.70-1.20 creatinine) glomerular filtration rate (test >60.00 code = glomerular filtration rate) Urea nitrogen/Creatinine [Mass 10.0 12-20 L Ratio] in Serum or Plasma (test code = 3097-3) sodium level (test code = sodium 136 mmol/L 135-145 level) potassium level (test code = 4.3 mmol/L 3.5-5.2 potassium level) chloride level (test code = 96 mmol/L 98-108 L chloride level) CO2 (test code = CO2) 32 mmol/L 21-32 anion gap (test code = anion gap) 12.3 mEq/L 12-20 calcium level (test code = 9.2 mg/dL 8.8-10.2 calcium level) total protein (test code = total 7.5 g/dL 6.6-8.7 protein) albumin (test code = albumin) 3.9 g/dL 3.5-5.2 globulin (test code = globulin) 3.6 gm/dL A/G ratio (test code = A/G ratio) 1.1 >1.0 bilirubin,total (test code = 0.4 mg/dL 0.0-1.2 bilirubin,total) AST/SGOT (test code = AST/SGOT) 20 U/L 15-40 Alanine aminotransferase 13 U/L 0-41 [Enzymatic activity/volume] in Serum or Plasma (test code = 1742-6) Alkaline phosphatase [Enzymatic 96 U/L 40-130 activity/volume] in Serum or Plasma (test code = 6768-6) [facility] - Serum or [id number] 00:00:00 Test Item Value Reference Range Interpretation Comments cholesterol level (test code = 118 mg/dL 150-200 L cholesterol level) triglycerides level (test code = 80 mg/dL <150 triglycerides level) HDL cholesterol (test code = HDL 39 mg/dL >55 L cholesterol) LDL cholesterol direct (test code = 65 mg/dL <100 LDL cholesterol direct) cholesterol risk ratio (test code = 3.025 cholesterol risk ratio) [facility] W Auto Differential panel - [id number] 00:00:00 Test Item Value Reference Range Interpretation Comments white blood count (test code = 8.4 K/uL 4.0-12.3 white blood count) red blood count (test code = red 4.15 M/uL 3.80-5.80 blood count) hemoglobin (test code = 10.8 g/dL 11.7-17.2 hemoglobin) hematocrit (test code = 36.2 % 35.0-51.0 hematocrit) MCV [Entitic volume] (test code = 87.2 fL 83-100 33763-1) mean corpuscular hemoglobin (test 26.0 pg 26.8-33.4 L code = mean corpuscular hemoglobin) mean corpuscular HGB conc (test 29.8 g/dL 30-35 L code = mean corpuscular HGB conc) red cell distribution width (test 13.6 % 12.0-14.0 code = red cell distribution width) platelet count (test code = 275 K/uL 175-450 platelet count) mean platelet volume (test code = 10.1 fL 9.4-12.6 mean platelet volume) Segmented neutrophils/100 62.4 % 44.7-82.4 leukocytes in Blood (test code = 72950-9) Immature granulocytes [#/volume] 0.0 K/uL 0.0-0.03 in Blood (test code = 41193-8) lymphocyte% (test code = 19.2 % 10.0-50.0 lymphocyte%) mono % (test code = mono %) 12.5 % 3.9-13.4 eos % (test code = eos %) 5.3 % 0.0-6.4 Basophils/100 leukocytes in 0.4 % 0.2-1.2 Unspecified specimen (test code = 24385-0) Band form neutrophils [#/volume] 5.23 K/uL 1.78-5.38 in Blood (test code = 36939-5) Lymphocytes [#/volume] in 1.6 K/uL 1.32-3.57 Unspecified specimen by Automated count (test code = 47427-7) mono # (test code = mono #) 1.05 K/uL 0.30-0.82 H eos # (test code = eos #) 0.44 K/uL 0.04-0.54 basophil # (test code = basophil 0.03 K/uL 0.01-0.08 #) NRBC% (test code = NRBC%) 0 /100 WBC 0-0.2 NRBC# (test code = NRBC#) 0 K/uL [facility] method [facility] - [id number] 00:00:00NeutrophilsBandLymphocyteAtypical LymphMonocyteEosinophilBasophilMetamyelocyteMyelocytePromyelocyteBlastsNucleated Red Blood CellPlasma CellAbs Neutrophil Count (Man)Abs Lymph Count (Man)Abs Monocyte Count (Man)Abs Eosinophil Count (Man)Abs Basophil Count (Man)Platelet EstimatePlatelet MorphologyHypoch romasiaPoikilocytosisAnisocytosisMacrocytosisTarget CellsStomatocyteToxic GranulationHypersegmented PolysToxic VacuolationGiant PlateletsMaWhitfield Medical Surgical HospitalComprehensive metabolic 2000 panel - Serum or [id number] 00:00:00 Test Item Value Reference Range Interpretation Comments Glucose [Mass/volume] in Serum or 121 mg/dL 82-115 H Plasma (test code = 2345-7) Urea nitrogen [Mass/volume] in 9 mg/dL 8-23 Serum or Plasma (test code = 3094-0) osmolality calculated,serum (test 272 mOsm/kg 280-300 L code = osmolality calculated,serum) creatinine (test code = 0.9 mg/dL 0.70-1.20 creatinine) glomerular filtration rate (test >60.00 code = glomerular filtration rate) Urea nitrogen/Creatinine [Mass 10.0 12-20 L Ratio] in Serum or Plasma (test code = 3097-3) sodium level (test code = sodium 136 mmol/L 135-145 level) potassium level (test code = 4.3 mmol/L 3.5-5.2 potassium level) chloride level (test code = 96 mmol/L 98-108 L chloride level) CO2 (test code = CO2) 32 mmol/L 21-32 anion gap (test code = anion gap) 12.3 mEq/L 12-20 calcium level (test code = 9.2 mg/dL 8.8-10.2 calcium level) total protein (test code = total 7.5 g/dL 6.6-8.7 protein) albumin (test code = albumin) 3.9 g/dL 3.5-5.2 globulin (test code = globulin) 3.6 gm/dL A/G ratio (test code = A/G ratio) 1.1 >1.0 bilirubin,total (test code = 0.4 mg/dL 0.0-1.2 bilirubin,total) AST/SGOT (test code = AST/SGOT) 20 U/L 15-40 Alanine aminotransferase 13 U/L 0-41 [Enzymatic activity/volume] in Serum or Plasma (test code = 1742-6) Alkaline phosphatase [Enzymatic 96 U/L 40-130 activity/volume] in Serum or Plasma (test code = 6768-6) [facility] - Serum or [id number] 00:00:00 Test Item Value Reference Range Interpretation Comments cholesterol level (test code = 118 mg/dL 150-200 L cholesterol level) triglycerides level (test code = 80 mg/dL <150 triglycerides level) HDL cholesterol (test code = HDL 39 mg/dL >55 L cholesterol) LDL cholesterol direct (test code = 65 mg/dL <100 LDL cholesterol direct) cholesterol risk ratio (test code = 3.025 cholesterol risk ratio) [facility] W Auto Differential panel - [id number] 03:20:00 Test Item Value Reference Range Interpretation Comments white blood count (test code = 9.3 K/uL 4.0-12.3 white blood count) red blood count (test code = red 5.08 M/uL 3.80-5.80 blood count) hemoglobin (test code = 15.8 g/dL 11.7-17.2 hemoglobin) hematocrit (test code = 49.7 % 35.0-51.0 hematocrit) MCV [Entitic volume] (test code = 97.8 fL 83-100 64289-5) mean corpuscular hemoglobin (test 31.1 pg 26.8-33.4 code = mean corpuscular hemoglobin) mean corpuscular HGB conc (test 31.8 g/dL 30-35 code = mean corpuscular HGB conc) red cell distribution width (test 12.3 % 12.0-14.0 code = red cell distribution width) platelet count (test code = 165 K/uL 175-450 L platelet count) mean platelet volume (test code = 10.0 fL 9.4-12.6 mean platelet volume) Segmented neutrophils/100 69.9 % 44.7-82.4 leukocytes in Blood (test code = 96103-3) Immature granulocytes [#/volume] 0.0 K/uL 0.0-0.03 in Blood (test code = 88250-2) lymphocyte% (test code = 15.3 % 10.0-50.0 lymphocyte%) mono % (test code = mono %) 10.9 % 3.9-13.4 eos % (test code = eos %) 3.4 % 0.0-6.4 Basophils/100 leukocytes in 0.2 % 0.2-1.2 Unspecified specimen (test code = 11888-9) Band form neutrophils [#/volume] 6.48 K/uL 1.78-5.38 H in Blood (test code = 01417-9) Lymphocytes [#/volume] in 1.4 K/uL 1.32-3.57 Unspecified specimen by Automated count (test code = 37020-7) mono # (test code = mono #) 1.01 K/uL 0.30-0.82 H eos # (test code = eos #) 0.32 K/uL 0.04-0.54 basophil # (test code = basophil 0.02 K/uL 0.01-0.08 #) NRBC% (test code = NRBC%) 0 /100 WBC 0-0.2 NRBC# (test code = NRBC#) 0 K/uL [facility]Different[facility], method unspecified - [id number] 03:20:00NeutrophilsBandLymphocyteMonocytePlatelet EstimateAnisocytosisMatagorda Medical GroupPT/[id number] 03:20:00 Test Item Value Reference Range Interpretation Comments prothrombin time (test code = 12.4 seconds 10.3-12.3 H prothrombin time) INR in Blood by Coagulation 1.17 assay (test code = 72153-7) [facility] [id number] 03:20:00 Test Item Value Reference Range Interpretation Comments INR in Blood by Coagulation 31.0 seconds 22.5-37.0 assay (test code = 39369-2) [facility]Com[facility] 2000 panel - Serum or Plasma 2020-06-07 03:20:00 Test Item Value Reference Range Interpretation Comments glucose (test code = glucose) 137 mg/dL 82-115 H Urea nitrogen [Mass/volume] in 6 mg/dL 8-23 L Serum or Plasma (test code = 3094-0) osmolality calculated,serum (test 268 mOsm/kg 280-300 L code = osmolality calculated,serum) creatinine (test code = 0.8 mg/dL 0.70-1.20 creatinine) glomerular filtration rate (test >60.00 code = glomerular filtration rate) Urea nitrogen/Creatinine [Mass 7.5 12-20 L Ratio] in Serum or Plasma (test code = 3097-3) sodium level (test code = sodium 134 mmol/L 135-145 L level) Potassium [Moles/volume] in Body 4.0 mmol/L 3.5-5.2 fluid (test code = 2821-7) chloride level (test code = 96 mmol/L 98-108 L chloride level) CO2 (test code = CO2) 27 mmol/L 21-32 anion gap (test code = anion gap) 15.0 mEq/L 12-20 calcium level (test code = 9.2 mg/dL 8.8-10.2 calcium level) total protein (test code = total 7.2 g/dL 6.6-8.7 protein) albumin (test code = albumin) 4.0 g/dL 3.5-5.2 globulin (test code = globulin) 3.2 gm/dL A/G ratio (test code = A/G ratio) 1.3 >1.0 bilirubin,total (test code = 0.5 mg/dL 0.0-1.2 bilirubin,total) AST/SGOT (test code = AST/SGOT) 29 U/L 15-40 Alanine aminotransferase 25 U/L 0-41 [Enzymatic activity/volume] in Serum or Plasma (test code = 1742-6) Alkaline phosphatase [Enzymatic 107 U/L 40-130 activity/volume] in Serum or Plasma (test code = 6768-6) [facility] W Auto Differential panel - [id number] 03:20:00 Test Item Value Reference Range Interpretation Comments white blood count (test code = 9.3 K/uL 4.0-12.3 white blood count) red blood count (test code = red 5.08 M/uL 3.80-5.80 blood count) hemoglobin (test code = 15.8 g/dL 11.7-17.2 hemoglobin) hematocrit (test code = 49.7 % 35.0-51.0 hematocrit) MCV [Entitic volume] (test code = 97.8 fL 83-100 71029-1) mean corpuscular hemoglobin (test 31.1 pg 26.8-33.4 code = mean corpuscular hemoglobin) mean corpuscular HGB conc (test 31.8 g/dL 30-35 code = mean corpuscular HGB conc) red cell distribution width (test 12.3 % 12.0-14.0 code = red cell distribution width) platelet count (test code = 165 K/uL 175-450 L platelet count) mean platelet volume (test code = 10.0 fL 9.4-12.6 mean platelet volume) Segmented neutrophils/100 69.9 % 44.7-82.4 leukocytes in Blood (test code = 94777-6) Immature granulocytes [#/volume] 0.0 K/uL 0.0-0.03 in Blood (test code = 74922-1) lymphocyte% (test code = 15.3 % 10.0-50.0 lymphocyte%) mono % (test code = mono %) 10.9 % 3.9-13.4 eos % (test code = eos %) 3.4 % 0.0-6.4 Basophils/100 leukocytes in 0.2 % 0.2-1.2 Unspecified specimen (test code = 79404-9) Band form neutrophils [#/volume] 6.48 K/uL 1.78-5.38 H in Blood (test code = 11297-1) Lymphocytes [#/volume] in 1.4 K/uL 1.32-3.57 Unspecified specimen by Automated count (test code = 14484-4) mono # (test code = mono #) 1.01 K/uL 0.30-0.82 H eos # (test code = eos #) 0.32 K/uL 0.04-0.54 basophil # (test code = basophil 0.02 K/uL 0.01-0.08 #) NRBC% (test code = NRBC%) 0 /100 WBC 0-0.2 NRBC# (test code = NRBC#) 0 K/uL [facility]Different[facility], method unspecified - [id number] 03:20:00NeutrophilsBandLymphocyteMonocytePlatelet EstimateAnisocytosisOcean Springs HospitalPT/[id number] 03:20:00 Test Item Value Reference Range Interpretation Comments prothrombin time (test code = 12.4 seconds 10.3-12.3 H prothrombin time) INR in Blood by Coagulation 1.17 assay (test code = 89223-6) [facility] [id number] 03:20:00 Test Item Value Reference Range Interpretation Comments INR in Blood by Coagulation 31.0 seconds 22.5-37.0 assay (test code = 15205-4) [facility]Com[facility] 2000 panel - Serum or Plasma 2020-06-07 03:20:00 Test Item Value Reference Range Interpretation Comments glucose (test code = glucose) 137 mg/dL 82-115 H Urea nitrogen [Mass/volume] in 6 mg/dL 8-23 L Serum or Plasma (test code = 3094-0) osmolality calculated,serum (test 268 mOsm/kg 280-300 L code = osmolality calculated,serum) creatinine (test code = 0.8 mg/dL 0.70-1.20 creatinine) glomerular filtration rate (test >60.00 code = glomerular filtration rate) Urea nitrogen/Creatinine [Mass 7.5 12-20 L Ratio] in Serum or Plasma (test code = 3097-3) sodium level (test code = sodium 134 mmol/L 135-145 L level) Potassium [Moles/volume] in Body 4.0 mmol/L 3.5-5.2 fluid (test code = 2821-7) chloride level (test code = 96 mmol/L 98-108 L chloride level) CO2 (test code = CO2) 27 mmol/L 21-32 anion gap (test code = anion gap) 15.0 mEq/L 12-20 calcium level (test code = 9.2 mg/dL 8.8-10.2 calcium level) total protein (test code = total 7.2 g/dL 6.6-8.7 protein) albumin (test code = albumin) 4.0 g/dL 3.5-5.2 globulin (test code = globulin) 3.2 gm/dL A/G ratio (test code = A/G ratio) 1.3 >1.0 bilirubin,total (test code = 0.5 mg/dL 0.0-1.2 bilirubin,total) AST/SGOT (test code = AST/SGOT) 29 U/L 15-40 Alanine aminotransferase 25 U/L 0-41 [Enzymatic activity/volume] in Serum or Plasma (test code = 1742-6) Alkaline phosphatase [Enzymatic 107 U/L 40-130 activity/volume] in Serum or Plasma (test code = 6768-6) [facility] with Ordered Manual Differential panel - Blood 2020-02-18 02:05:00 Test Item Value Reference Range Interpretation Comments white blood count (test 7.1 K/uL 4.0-12.3 code = white blood count) red blood count (test code 5.29 M/uL 3.80-5.80 = red blood count) hemoglobin (test code = 16.2 g/dL 11.7-17.2 hemoglobin) hematocrit (test code = 49.6 % 35.0-51.0 hematocrit) MCV [Entitic volume] (test 93.8 fL 83-100 code = 94813-3) mean corpuscular hemoglobin 30.6 pg 26.8-33.4 (test code = mean corpuscular hemoglobin) mean corpuscular HGB conc 32.7 g/dL 30-35 (test code = mean corpuscular HGB conc) red cell distribution width 11.7 % 12.0-14.0 L (test code = red cell distribution width) platelet count (test code = 175 K/uL 175-450 platelet count) mean platelet volume (test 10.0 fL 9.4-12.6 code = mean platelet volume) Neutrophils [#/volume] in 91 37.0-80.0 H Blood by Automated count (test code = 751-8) lymphocyte (test code = 8 10-50 L lymphocyte) Monocytes [#/volume] in 1 0-12 Blood by Manual count (test code = 743-5) Platelet morphology finding normal RBC morph. normal RBC [Identifier] in Blood (test code = 37916-5) Platelets [#/volume] in normal normal Blood by Automated count (test code = 777-3) [facility] - Serum or [id number] 02:05:00 Test Item Value Reference Range Interpretation Comments Glucose [Mass/volume] in Serum or 174 mg/dL 82-115 H Plasma (test code = 2345-7) Urea nitrogen [Mass/volume] in 16 mg/dL 8-23 Serum or Plasma (test code = 3094-0) osmolality calculated,serum (test 274 mOsm/kg 280-300 L code = osmolality calculated,serum) creatinine (test code = 1.0 mg/dL 0.70-1.20 creatinine) glomerular filtration rate (test >60.00 code = glomerular filtration rate) Urea nitrogen/Creatinine [Mass 16.0 12-20 Ratio] in Serum or Plasma (test code = 3097-3) sodium level (test code = sodium 134 mmol/L 135-145 L level) potassium level (test code = 4.8 mmol/L 3.5-5.2 potassium level) chloride level (test code = 98 mmol/L 98-108 chloride level) CO2 (test code = CO2) 27 mmol/L 21-32 anion gap (test code = anion gap) 13.8 mEq/L 12-20 calcium level (test code = 9.3 mg/dL 8.8-10.2 calcium level) [facility]allprocal2020-[facility] 02:05:00 Test Item Value Reference Range Interpretation Comments Procalcitonin [Mass/volume] in 0.0 NG/mL 0.0-0.8 Serum or Plasma (test code = 26832-5) [facility] HospitalGas panel - Arterial [id number] 04:30:00 Test Item Value Reference Range Interpretation Comments pH of Arterial blood (test code = 7.33 7.35-7.45 L 2744-1) Carbon dioxide [Partial pressure] 59 mmHg 35-45 H in Arterial blood (test code = 2018-) Oxygen [Partial pressure] in 69 mmHg 75-100 L Arterial blood (test code = 2703-7) Bicarbonate [Moles/volume] in 26.9 mmol/L 22-26 H Arterial blood (test code = 1959-4) Base excess in Arterial blood by 5.3 mmol/l -2.0-2.0 H calculation (test code = 1925-7) ABG CO2,total (test code = ABG 26.7 mEq/L 23.0-33.0 CO2,total) Oxygen saturation in Arterial 93 % 95-100 L blood (test code = 2708-6) Oxygen content in Arterial blood 10.5 mmol/L (test code = 39519-1) [facility] GroupUrinalysis complete panel - [id number] 04:18:00 Test Item Value Reference Range Interpretation Comments Color of Urine by Auto (test yellow code = 39141-6) Appearance of Urine (test code clear clear = 5767-9) Glucose [Presence] in Urine by negative negative Automated test strip (test code = 01177-6) Bilirubin.total [Mass/volume] negative negative in Urine (test code = 1977-) Ketones [Mass/volume] in Urine negative negative by Automated test strip (test code = 07811-8) Specific gravity of Urine (test 1.015 1.010-1.025 code = 2965-2) blood urine (test code = blood negative negative urine) pH of Urine (test code = 5.500 5-9 2756-5) protein urine (UA) (test code = =1+ (30 negative H protein urine (UA)) Urobilinogen [Presence] in normal 0.2-1.0 Urine (test code = 55864-0) Nitrite [Presence] in Urine by negative negative Test strip (test code = 5802-4) Leukocyte esterase [Presence] negative negative in Urine by Automated test strip (test code = 14248-0) Erythrocytes [#/volume] in =1-5 0-5 Urine by Automated count (test code = 798-9) Leukocytes [#/area] in Urine <1 0-5 sediment by Automated count (test code = 39845-5) Epithelial cells [Presence] in <1 0-5 Urine sediment by Light microscopy (test code = 30755-8) Bacteria identified in Urine by none detected none detect Culture (test code = 630-4) Casts [#/area] in Urine =6-10 none detect H sediment by Automated count (test code = 38114-3) urine culture added? (test code no = urine culture added?) [facility]PT/[id number] 02:47:00 Test Item Value Reference Range Interpretation Comments prothrombin time (test code = 13.5 seconds 10.3-12.3 H prothrombin time) INR in Blood by Coagulation 1.27 assay (test code = 05738-8) [facility]in [id number] 02:47:00 Test Item Value Reference Range Interpretation Comments INR in Blood by Coagulation 39.5 seconds 22.5-37.0 H assay (test code = 26399-5) [facility]cal[facility] 02:47:00 Test Item Value Reference Range Interpretation Comments Procalcitonin [Mass/volume] in 0.1 NG/mL 0.0-0.8 Serum or Plasma (test code = 62015-3) [facility] HospitalLactate [Mass/volume] in Serum or [id number] 02:40:00 Test Item Value Reference Range Interpretation Comments lactic acid (test code = lactic 1.10 mmol/L 0.5-2.2 acid) [facility]Com[facility] 2000 panel - Serum or Plasma 2020-02-17 02:28:00 Test Item Value Reference Range Interpretation Comments glucose (test code = glucose) 125 mg/dL 82-115 H Urea nitrogen [Mass/volume] in 13 mg/dL 8-23 Serum or Plasma (test code = 3094-0) osmolality calculated,serum (test 276 mOsm/kg 280-300 L code = osmolality calculated,serum) creatinine (test code = 1.0 mg/dL 0.70-1.20 creatinine) glomerular filtration rate (test >60.00 code = glomerular filtration rate) Urea nitrogen/Creatinine [Mass 13.0 12-20 Ratio] in Serum or Plasma (test code = 3097-3) sodium level (test code = sodium 137 mmol/L 135-145 level) Potassium [Moles/volume] in Body 4.2 mmol/L 3.5-5.2 fluid (test code = 2821-7) chloride level (test code = 97 mmol/L 98-108 L chloride level) CO2 (test code = CO2) 28 mmol/L 21-32 anion gap (test code = anion gap) 16.2 mEq/L 12-20 calcium level (test code = 9.9 mg/dL 8.8-10.2 calcium level) total protein (test code = total 8.8 g/dL 6.6-8.7 H protein) albumin (test code = albumin) 4.3 g/dL 3.5-5.2 globulin (test code = globulin) 4.5 gm/dL A/G ratio (test code = A/G ratio) 1.0 >1.0 bilirubin,total (test code = 0.7 mg/dL 0.0-1.2 bilirubin,total) AST/SGOT (test code = AST/SGOT) 28 U/L 15-40 Alanine aminotransferase 28 U/L 0-41 [Enzymatic activity/volume] in Serum or Plasma (test code = 1742-6) Alkaline phosphatase [Enzymatic 89 U/L 40-130 activity/volume] in Serum or Plasma (test code = 6768-6) [facility] HospitalCreatine kinase [Enzymatic activity/volume] in Serum or [id number] 02:28:00 Test Item Value Reference Range Interpretation Comments creatine kinase (test code = creatine 69 U/L 20-200 kinase) [facility] W Auto Differential panel - [id number] 02:28:00 Test Item Value Reference Range Interpretation Comments white blood count (test code = 11.0 K/uL 4.0-12.3 white blood count) red blood count (test code = red 6.10 M/uL 3.80-5.80 H blood count) hemoglobin (test code = 19.2 g/dL 11.7-17.2 H hemoglobin) hematocrit (test code = 57.6 % 35.0-51.0 H hematocrit) MCV [Entitic volume] (test code = 94.4 fL 83-100 77747-1) mean corpuscular hemoglobin (test 31.5 pg 26.8-33.4 code = mean corpuscular hemoglobin) mean corpuscular HGB conc (test 33.3 g/dL 30-35 code = mean corpuscular HGB conc) red cell distribution width (test 11.9 % 12.0-14.0 L code = red cell distribution width) platelet count (test code = 213 K/uL 175-450 platelet count) mean platelet volume (test code = 9.6 fL 9.4-12.6 mean platelet volume) Segmented neutrophils/100 62.1 % 44.7-82.4 leukocytes in Blood (test code = 34120-9) Immature granulocytes [#/volume] 0.0 K/uL 0.0-0.03 in Blood (test code = 69639-4) lymphocyte% (test code = 24.0 % 10.0-50.0 lymphocyte%) mono % (test code = mono %) 9.9 % 3.9-13.4 eos % (test code = eos %) 3.2 % 0.0-6.4 Basophils/100 leukocytes in 0.5 % 0.2-1.2 Unspecified specimen (test code = 98670-1) Band form neutrophils [#/volume] 6.82 K/uL 1.78-5.38 H in Blood (test code = 60457-3) Lymphocytes [#/volume] in 2.6 K/uL 1.32-3.57 Unspecified specimen by Automated count (test code = 43373-7) mono # (test code = mono #) 1.09 K/uL 0.30-0.82 H eos # (test code = eos #) 0.35 K/uL 0.04-0.54 basophil # (test code = basophil 0.06 K/uL 0.01-0.08 #) NRBC% (test code = NRBC%) 0 /100 WBC 0-0.2 NRBC# (test code = NRBC#) 0 K/uL [facility]Differential panel, method unspecified - [id number] 02:28:00NeutrophilsBandLymphocyteAtypical LymphMonocyteEosinophilBasophilNucleated Red Blood CellDifferential CommentPlatelet EstimatePlatelet MorphologyMacrocytosisToxic GranulationToxic VacuolationMatagoDelta Regional Medical CenterNatriuretic peptide.B prohormone N-Terminal [Mass/volume] in Serum or [id number] 02:28:00 Test Item Value Reference Range Interpretation Comments N-term pro natriuretic peptide 196 pg/mL 0-125 H (test code = N-term pro natriuretic peptide) [facility] HospitalTroponin I.cardiac [Mass/volume] in [id number] 02:28:00 Test Item Value Reference Range Interpretation Comments cardiac troponin I (test code = cardiac <0.30 0.0-0.5 troponin I) [facility] HospitalCreatine kinase.MB [Mass/volume] in Serum or Plasma 2020-02-17 02:28:00 Test Item Value Reference Range Interpretation Comments Creatine kinase.MB [Mass/volume] in 2.3 NG/mL 0.0-3.6 Serum or Plasma by Immunoassay (test code = 12974-8) [facility] W Auto Differential panel - [id number] 01:14:00 Test Item Value Reference Range Interpretation Comments white blood count (test code = 6.7 K/uL 4.0-12.3 white blood count) red blood count (test code = red 5.10 M/uL 3.80-5.80 blood count) hemoglobin (test code = 16.0 g/dL 11.7-17.2 hemoglobin) hematocrit (test code = 48.6 % 35.0-51.0 hematocrit) MCV [Entitic volume] (test code = 95.3 fL 83-100 11987-4) mean corpuscular hemoglobin (test 31.4 pg 26.8-33.4 code = mean corpuscular hemoglobin) mean corpuscular HGB conc (test 32.9 g/dL 30-35 code = mean corpuscular HGB conc) red cell distribution width (test 11.9 % 12.0-14.0 L code = red cell distribution width) platelet count (test code = 145 K/uL 175-450 L platelet count) mean platelet volume (test code = 9.9 fL 9.4-12.6 mean platelet volume) Segmented neutrophils/100 62.0 % 44.7-82.4 leukocytes in Blood (test code = 25886-0) Immature granulocytes [#/volume] 0.0 K/uL 0.0-0.03 in Blood (test code = 48991-1) lymphocyte% (test code = 20.7 % 10.0-50.0 lymphocyte%) mono % (test code = mono %) 11.8 % 3.9-13.4 eos % (test code = eos %) 4.8 % 0.0-6.4 Basophils/100 leukocytes in 0.4 % 0.2-1.2 Unspecified specimen (test code = 17514-2) Band form neutrophils [#/volume] 4.16 K/uL 1.78-5.38 in Blood (test code = 06859-3) Lymphocytes [#/volume] in 1.4 K/uL 1.32-3.57 Unspecified specimen by Automated count (test code = 09256-5) mono # (test code = mono #) 0.79 K/uL 0.30-0.82 eos # (test code = eos #) 0.32 K/uL 0.04-0.54 basophil # (test code = basophil 0.03 K/uL 0.01-0.08 #) NRBC% (test code = NRBC%) 0 /100 WBC 0-0.2 NRBC# (test code = NRBC#) 0 K/uL [facility] metabolic 2000 panel - Serum or [id number] 01:14:00 Test Item Value Reference Range Interpretation Comments Glucose [Mass/volume] in Serum or 111 mg/dL 82-115 Plasma (test code = 2345-7) Urea nitrogen [Mass/volume] in 10 mg/dL 8-23 Serum or Plasma (test code = 3094-0) osmolality calculated,serum (test 272 mOsm/kg 280-300 L code = osmolality calculated,serum) creatinine (test code = 1.1 mg/dL 0.70-1.20 creatinine) glomerular filtration rate (test >60.00 code = glomerular filtration rate) Urea nitrogen/Creatinine [Mass 9.1 12-20 L Ratio] in Serum or Plasma (test code = 3097-3) sodium level (test code = sodium 136 mmol/L 135-145 level) potassium level (test code = 3.8 mmol/L 3.5-5.2 potassium level) chloride level (test code = 98 mmol/L 98-108 chloride level) CO2 (test code = CO2) 29 mmol/L 21-32 anion gap (test code = anion gap) 12.8 mEq/L 12-20 calcium level (test code = 8.6 mg/dL 8.8-10.2 L calcium level) [facility] or Plasma --trough 2020-02-12 08:37:00 Test Item Value Reference Range Interpretation Comments Vancomycin [Mass/volume] in Serum 15.6 ug/mL 04-05 or Plasma --trough (test code = 4092-3) [facility] Auto Differential panel - [id number] 01:52:00 Test Item Value Reference Range Interpretation Comments white blood count (test code = 7.8 K/uL 4.0-12.3 white blood count) red blood count (test code = red 5.21 M/uL 3.80-5.80 blood count) hemoglobin (test code = 16.1 g/dL 11.7-17.2 hemoglobin) hematocrit (test code = 50.2 % 35.0-51.0 hematocrit) MCV [Entitic volume] (test code = 96.4 fL 83-100 95670-4) mean corpuscular hemoglobin (test 30.9 pg 26.8-33.4 code = mean corpuscular hemoglobin) mean corpuscular HGB conc (test 32.1 g/dL 30-35 code = mean corpuscular HGB conc) red cell distribution width (test 11.9 % 12.0-14.0 L code = red cell distribution width) platelet count (test code = 151 K/uL 175-450 L platelet count) mean platelet volume (test code = 10.1 fL 9.4-12.6 mean platelet volume) Segmented neutrophils/100 63.0 % 44.7-82.4 leukocytes in Blood (test code = 52062-0) Immature granulocytes [#/volume] 0.0 K/uL 0.0-0.03 in Blood (test code = 45486-4) lymphocyte% (test code = 20.4 % 10.0-50.0 lymphocyte%) mono % (test code = mono %) 12.6 % 3.9-13.4 eos % (test code = eos %) 3.3 % 0.0-6.4 Basophils/100 leukocytes in 0.4 % 0.2-1.2 Unspecified specimen (test code = 30702-1) Band form neutrophils [#/volume] 4.93 K/uL 1.78-5.38 in Blood (test code = 34773-3) Lymphocytes [#/volume] in 1.6 K/uL 1.32-3.57 Unspecified specimen by Automated count (test code = 50011-4) mono # (test code = mono #) 0.99 K/uL 0.30-0.82 H eos # (test code = eos #) 0.26 K/uL 0.04-0.54 basophil # (test code = basophil 0.03 K/uL 0.01-0.08 #) NRBC% (test code = NRBC%) 0 /100 WBC 0-0.2 NRBC# (test code = NRBC#) 0 K/uL [facility], method unspecified - [id number] 01:52:00NeutrophilsBandLymphocyteAtypical LymphMonocyteEosinophilMetamyelocyteNucleated Red Blood CellPlatelet EstimatePlatelet MorphologyHypochromasiaPoikilocytosisAnisocytosisOvalocytesDifferential comment-[facility] 2000 [facility] - Serum or Plasma 2020-02-12 01:52:00 Test Item Value Reference Range Interpretation Comments Glucose [Mass/volume] in Serum or 109 mg/dL 82-115 Plasma (test code = 2345-7) Urea nitrogen [Mass/volume] in 9 mg/dL 8-23 Serum or Plasma (test code = 3094-0) osmolality calculated,serum (test 271 mOsm/kg 280-300 L code = osmolality calculated,serum) creatinine (test code = 1.0 mg/dL 0.70-1.20 creatinine) glomerular filtration rate (test >60.00 code = glomerular filtration rate) Urea nitrogen/Creatinine [Mass 9.0 12-20 L Ratio] in Serum or Plasma (test code = 3097-3) sodium level (test code = sodium 136 mmol/L 135-145 level) potassium level (test code = 4.4 mmol/L 3.5-5.2 potassium level) chloride level (test code = 97 mmol/L 98-108 L chloride level) CO2 (test code = CO2) 29 mmol/L 21-32 anion gap (test code = anion gap) 14.4 mEq/L 12-20 calcium level (test code = 8.6 mg/dL 8.8-10.2 L calcium level) [facility]-Lactate [Moles/volume] in Serum or [id number] 01:52:00 Test Item Value Reference Range Interpretation Comments LDH (test code = LDH) 143 U/L 135-225 [facility] Auto Differential panel - [id number] 09:40:00 Test Item Value Reference Range Interpretation Comments white blood count (test code = 8.7 K/uL 4.0-12.3 white blood count) red blood count (test code = red 5.82 M/uL 3.80-5.80 H blood count) hemoglobin (test code = 18.0 g/dL 11.7-17.2 H hemoglobin) hematocrit (test code = 54.1 % 35.0-51.0 H hematocrit) MCV [Entitic volume] (test code = 93.0 fL 83-100 14039-5) mean corpuscular hemoglobin (test 30.9 pg 26.8-33.4 code = mean corpuscular hemoglobin) mean corpuscular HGB conc (test 33.3 g/dL 30-35 code = mean corpuscular HGB conc) red cell distribution width (test 11.7 % 12.0-14.0 L code = red cell distribution width) platelet count (test code = 168 K/uL 175-450 L platelet count) mean platelet volume (test code = 9.6 fL 9.4-12.6 mean platelet volume) Segmented neutrophils/100 74.2 % 44.7-82.4 leukocytes in Blood (test code = 60477-3) Immature granulocytes [#/volume] 0.0 K/uL 0.0-0.03 in Blood (test code = 26260-7) lymphocyte% (test code = 13.8 % 10.0-50.0 lymphocyte%) mono % (test code = mono %) 9.3 % 3.9-13.4 eos % (test code = eos %) 2.1 % 0.0-6.4 Basophils/100 leukocytes in 0.3 % 0.2-1.2 Unspecified specimen (test code = 72883-5) Band form neutrophils [#/volume] 6.43 K/uL 1.78-5.38 H in Blood (test code = 61876-7) Lymphocytes [#/volume] in 1.2 K/uL 1.32-3.57 L Unspecified specimen by Automated count (test code = 13850-8) mono # (test code = mono #) 0.81 K/uL 0.30-0.82 eos # (test code = eos #) 0.18 K/uL 0.04-0.54 basophil # (test code = basophil 0.03 K/uL 0.01-0.08 #) NRBC% (test code = NRBC%) 0 /100 WBC 0-0.2 NRBC# (test code = NRBC#) 0 K/uL [facility], method unspecified - [id number] 09:40:00NeutrophilsBandLymphocyteAtypical LymphMonocyteEosinophilMetamyelocyteNucleated Red Blood CellPlatelet EstimatePlatelet MorphologyHypochromasiaPoikilocytosisAnisocytosisOvalocytesDifferential comment-[facility]Com[facility] 2000 panel - Serum or [id number] 09:40:00 Test Item Value Reference Range Interpretation Comments glucose (test code = glucose) 148 mg/dL 82-115 H Urea nitrogen [Mass/volume] in 7 mg/dL 8-23 L Serum or Plasma (test code = 3094-0) osmolality calculated,serum (test 267 mOsm/kg 280-300 L code = osmolality calculated,serum) creatinine (test code = 0.9 mg/dL 0.70-1.20 creatinine) glomerular filtration rate (test >60.00 code = glomerular filtration rate) Urea nitrogen/Creatinine [Mass 7.8 12-20 L Ratio] in Serum or Plasma (test code = 3097-3) sodium level (test code = sodium 133 mmol/L 135-145 L level) Potassium [Moles/volume] in Body 4.2 mmol/L 3.5-5.2 fluid (test code = 2821-7) chloride level (test code = 94 mmol/L 98-108 L chloride level) CO2 (test code = CO2) 29 mmol/L 21-32 anion gap (test code = anion gap) 14.2 mEq/L 12-20 calcium level (test code = 9.3 mg/dL 8.8-10.2 calcium level) total protein (test code = total 7.7 g/dL 6.6-8.7 protein) albumin (test code = albumin) 3.8 g/dL 3.5-5.2 globulin (test code = globulin) 3.9 gm/dL A/G ratio (test code = A/G ratio) 1.0 >1.0 bilirubin,total (test code = 1.1 mg/dL 0.0-1.2 bilirubin,total) AST/SGOT (test code = AST/SGOT) 19 U/L 15-40 Alanine aminotransferase 16 U/L 0-41 [Enzymatic activity/volume] in Serum or Plasma (test code = 1742-6) Alkaline phosphatase [Enzymatic 87 U/L 40-130 activity/volume] in Serum or Plasma (test code = 6768-6) [facility]PT/[id number] 09:40:00 Test Item Value Reference Range Interpretation Comments prothrombin time (test code = 11.4 seconds 10.3-12.3 prothrombin time) INR in Blood by Coagulation 1.06 assay (test code = 40054-2) [facility]partial thromboplastin [id number] 09:40:00 Test Item Value Reference Range Interpretation Comments INR in Blood by Coagulation 30.9 seconds 22.5-37.0 assay (test code = 87766-7) [facility] HospitalErythrocyte sedimentation [id number] 03:45:00 Test Item Value Reference Range Interpretation Comments erythrocyte sedimentation rate (test 8 mm/HR 0.00-20 code = erythrocyte sedimentation rate) [facility] HospitalThyrotropin [Units/volume] in Serum or [id number] 03:45:00 Test Item Value Reference Range Interpretation Comments Thyrotropin [Units/volume] in 3.38 uIU/mL 0.36-3.74 Serum or Plasma (test code = 3016-3) [id number] 03:45:00 Test Item Value Reference Range Interpretation Comments cea (test code = cea) 3.66 0-4.7 [facility]PSA, serum or [id number] 03:45:00 Test Item Value Reference Range Interpretation Comments total PSA diagnostic (test code = 0.83 NG/mL 0.0-4.00 total PSA diagnostic) [facility] HospitalNuclear Ab [Presence] in [id number] 03:45:00 Test Item Value Reference Range Interpretation Comments Nuclear Ab [Presence] in Serum (test negative negative code = 8061-4) [facility] HospitalPhospholipid [Mass/volume] in Serum or [id number] 03:45:00 Test Item Value Reference Range Interpretation Comments phospholipid (test code = 160 mg/dL 150-250 phospholipid) [facility]Protein S actual/normal in Platelet poor plasma by Coagulation [id number] 03:45:00 Test Item Value Reference Range Interpretation Comments protein S,functional (test code = 121 % 63-140 protein S,functional) [facility]allupus anticoagulant, [id number] 03:45:00 Test Item Value Reference Range Interpretation Comments PTT-la (test code = PTT-la) 52.2 sec 0.0-51.9 H PTT-la-mix (test code = PTT-la-mix) 47.3 sec 0.0-48.9 PTT-la incub mix (test code = PTT-la 52.3 sec 0.0-48.9 H incub mix) aPTT W excess hexagonal phase 0 sec 0-11 phospholipid in Platelet poor plasma by Coagulation assay (test code = 3282-1) dRVVT (LA screen) (test code = 43.2 sec 0.0-47.0 6303-2) interpretation (test code = . interpretation) [facility] Groupprotein [id number] 03:45:00 Test Item Value Reference Range Interpretation Comments protein C (test code = protein C) 69 % 60-150 [facility]"
[2022-05-29 13:37] VITALS: BMI 28.2
[2022-05-29] MEDS ORDERED: DOCUSATE NA/SENNA CONC 1 TAB PO PRN (16:59)
[2022-05-29] MEDS: methocarbamoL 500 MG TAB PO PRN (17:00)
[2022-05-29] MEDS: METOPROLOL TAR 25 MG TAB PO SCH (17:00)
[2022-05-29] MEDS: APIXABAN 5 MG TABLET PO SCH (19:52)
[2022-05-29] MEDS: ALBUTEROL 2.5 MG/3 ML NEB SOL NEB SCH (20:15)
[2022-05-29] MEDS: LIDOCAINE 4% PATCH TOP SCH (20:49)
[2022-05-30] MEDS: ALBUTEROL 2.5 MG/3 ML NEB SOL NEB SCH ×4 (02:55→20:00)
[2022-05-30 04:46] LABS: Absolute Lymphocytes (CBC) 0.9 K/uL (0.7-4.9); Hematocrit 38.5 % (39.6-49.0); Lymphocytes % 11.5 % (15.3-44.8); MPV 7.8 fL (7.6-11.3); RBC Red Blood Cell Count 4.14 M/uL (4.33-5.43)
[2022-05-30 04:51] LABS: Specific Gravity > 1.030 (1.005-1.030); Urine Bilirubin NEGATIVE (Negative); Urine Blood Negative (Negative); Urine Clarity Clear (Clear); Urine Color Yellow (Yellow); Urine Glucose NEGATIVE (Negative); Urine Mucus Slight /HPF (None Seen); Urine Protein TRACE (Negative); Urine RBC <5 /HPF (None Seen); Urine Urobilinogen 1+ (Normal)
[2022-05-30 05:10] LABS: Albumin 2.8 g/dL (3.4-5.0); Magnesium 2.3 mg/dL (1.6-2.4); Potassium 4.3 mmol/L (3.5-5.1); Prealbumin 18.1 mg/dL (20-40)
[2022-05-30] MEDS: METOPROLOL TAR 25 MG TAB PO SCH ×2 (05:15→17:22)
[2022-05-30] MEDS: LOSARTAN POTASSIUM 50 MG TABLET PO SCH (07:45)
[2022-05-30] MEDS: ASPIRIN 81 MG CHEWABLE TABLET PO SCH (07:46)
[2022-05-30] MEDS: APIXABAN 5 MG TABLET PO SCH ×2 (07:46→20:35)
[2022-05-30] MEDS: CYCLOBENZAPRINE 10 MG TAB PO SCH (07:46)
[2022-05-30] MEDS: FUROSEMIDE 40 MG TABLET PO SCH (07:47)
[2022-05-30] MEDS: predniSONE 20 MG TAB PO SCH (07:47)
[2022-05-30] MEDS: POTASSIUM CL SA 10 MEQ TAB PO SCH (07:47)
[2022-05-30] MEDS: LIDOCAINE 4% PATCH TOP SCH (07:48)
[2022-05-30] MEDS: methocarbamoL 500 MG TAB PO PRN (12:33)
--- NOTE | 2022-05-30 16:50 | P.CNS ---
Date of Consult: 05/30/22 Reason for Consult: painful toenails Chief Complaint: Painful toenails Allergies No Known Allergies Allergy (Unverified 05/29/22 14:58) Home Medications: Apixaban [Eliquis] 5 mg PO BID 05/29/22 Aspirin Chewable [Aspirin Chewable*] 1 tab PO DAILY 05/29/22 Metoprolol Tartrate [Lopressor] 25 mg PO BID 05/29/22 methocarbamoL [Robaxin] 500 mg PO Q6HP PRN 05/29/22 predniSONE [Prednisone] 20 mg PO DAILY 05/29/22 - Past Medical/Surgical History Diabetic: No -: copd -: htn -: abd surgeries - Social History Alcohol use: No CD- Drugs: No Caffeine use: Yes Place of Residence: Home Review of Systems 10-point ROS is otherwise unremarkable Physical Examination Temp Pulse Resp BP Pulse Ox 97.7 F 56 18 138/77 96 05/30/22 07:25 05/30/22 07:47 05/30/22 13:27 05/30/22 07:47 05/30/22 13:27 General: Alert, In no apparent distress, Oriented x3 Cardiovascular: No edema, Normal pulses Capillary refill: <2 Seconds Musculoskeletal: No clubbing, No swelling, No contractures, No erythema, No tenderness, No warmth Integumentary: Other (bilateral feet are cool to the touch with absent hair growth noted. Thickened hypertrophic bilateral hallux nails with subungual debris. nails 2-5 bilateral are elongated) Neurological: Sensation intact Laboratory Data (last 24 hrs) 05/30/22 04:26: Sodium 140, Potassium 4.3, BUN 31 H, Creatinine 1.04, Glucose 104, Magnesium 2.3 05/30/22 04:26: WBC 8.10, Hgb 12.8 L, Hct 38.5 L, Plt Count 171 - Problems (1) shelter (current) use of anticoagulants Current Visit: Yes Status: Acute (2) Tinea unguium Current Visit: Yes Status: Acute (3) Onychogryphosis Current Visit: Yes Status: Acute Conclusions/Impression: Mechanical debridement of nails x 10 bilateral Physician Review: Patient Assessed, Agree with Above Assessment and Plan Critical Care: No
--- NOTE | 2022-05-30 20:09 | HP ---
Date of Admission: 05/29/2022 Time Of Service: 7:30 p.m. Chief Complaint: Back pain. History Of Present Illness: Mr. Garcia is a 67-year-old patient with history of coronary real ry disease, atrial fibrillation on Eliquis, chronic obstructive pulmonary disease on 3.5 L of oxygen who fell backwards from a chair hitting the ground on his back and buttock area. He fell on May 20. He had severe lower back pain, and his evaluation at hospital identified an L1 burst fracture wi th 40% loss of height, in addition to nondisplaced rib fractures of 9 through 11 on the left. In add ition, he was found to have hypercapnic respiratory failure and acute hypoxic respiratory failure. H e received BiPAP with oxygen at 2 L. Neurosurgery evaluated the patient and did not recommend surgic al intervention. The patient was recommended to have a TLSO brace when upright and out of bed and to follow up in clinic for 3 months. The patient while hospitalized had SVT on telemetry while hypokal emic. He had potassium replacement in addition to being placed on Eliquis. His evaluation identifie d bilateral pulmonary embolus. An arterial blood gas showed a pH of 7.29 with pCO2 of 91. He was co ntinued on BiPAP to help improve ventilation. He did have an episode of hypotension and was found to have some congestive failure with 4+ pitting edema in the left leg. In addition, evaluation reveale d cholelithiasis and centrilobular emphysema. Due to the patient's multiple complicated medical cond itions and his severe back pain, and the need for a TLSO brace when out of bed, he was unable. He ac tually would be unable to go home or to be managed in a lower level facility such as nursing home and is therefore deemed to be more appropriate for acute inpatient rehabilitation. Past Medical History: As noted above. Allergies: NO KNOWN DRUG ALLERGIES. Social History: No excessive alcohol, tobacco, or IV drug use. Consultations while in hospital prior to admission include neurosurgery and adult critical care, pulm onary care, and he did receive physical and occupational therapy in addition to Pain Management and C ardiology services. Note imaging while in hospital did show a CT scan of the lumbar spine. No acute osseous abnormalities. Thoracic spine did not show abnormalities. Lumbar region showed the L1 burs t fracture in addition to the fractures of the ribs as noted above on chest imaging. Laboratory Studies: White blood cell count 8.1, hemoglobin 12.8, hematocrit 38.5, platelets 171. Ch emistries; sodium 140, potassium 4.3, chloride 105, BUN 31, creatinine 1.04, glucose 104. Calcium 8. 4, albumin 2.8, prealbumin 18.1. Current Medications: Albuterol nebulizer 2.5 mg every 6 hours, Eliquis 5 mg twice daily, aspirin 81 mg daily, Flexeril 10 mg daily, Lasix 40 mg daily, lidocaine patch 1 to lower back daily, Cozaar 25 m g daily, melatonin 3 mg at bedtime, Robaxin 500 mg every 6 hours as needed, Lopressor 25 mg twice rafaela ly, potassium 10 mEq daily, Deltasone 10 mg daily, Senokot 2 tablets at bedtime. Review of Systems: Mr. Garcia does report significant pain in the lower back which actually I adjusted his medication regim en, including the amount and frequency of gabapentin from 600, 3 times a day to 1200 twice daily. In addition, the lidocaine patch was placed. Aside from his pain in the lower back, he denies any feve rs or chills. Some mild shortness of breath with exertion, mild myalgias, arthralgias. No rash. No headache. Some mild depression. No other positives on a 10-point systems review. Physical Examination: Vital Signs: Blood pressure 138/77, pulse 56, respiratory rate 18, temperature 97.7, oxygen saturati on 96%. Weight 196 pounds, height 5 feet 10 inches. BMI 28. General: Mr. Garcia is resting in bed on his left side. He does report the pain as noted and is around 6 to 7/10. HEENT: Otherwise, he is normocephalic, atraumatic. Sclerae anicteric. Oropharynx is moist. Neck: Supple. Chest: Clear. Heart: Irregularly irregular. Abdomen: Obese, but soft. Extremities: Showed trace edema, more on the left than the right lower extremity. Neuro: Otherwise neurologically, he does not have focal findings in terms of cranial nerves. Motor, he has pain limiting his exertion in both upper and lower extremities. Sensation, stocking-glove lo ss light touch temperature. Reflexes depressed in all extremities. Current Level Of Functioning: Currently, he did multiple sit to stand transfers with contact guard a ssistance using a rolling walker. He did require verbal cues to maintain proper hand placement and t ask sequencing, multiple stand and pivot transfers with contact guard assistance using a rolling walk er. Perform supine to sit transfers with standby assistance. Did require verbal cuing in terms of w hat is expected and what he did, he did participate in gait training for 250 feet and 350 feet with c ontact guard assistance using a rolling walker while using 2 L of oxygen via nasal cannula. Oxygen s aturation maintained 96-97% with the oxygen. He did ambulate 120 feet on room air, but had to stop a nd rest due to shortness of breath. His oxygen saturation dropped to 84%. Once supplemental oxygen was placed, he did get back up to 97% of saturation. Also his shower was done independently. He did have difficulty adjusting water temperature. Lower body dressing done independently. There was mauro e difficulty with upper body dressing, unable to pull his shirt down without pain. Standing toleranc e was moderate. Rehabilitation Assessment And Plan: Mr. Garcia is a 67-year-old patient with a traumatic L1 burst fract ure who has multiple pain medications, but is actually doing well once his pain is managed with multi ple modalities including transdermal means, neuromodulators, narcotic medications, and non narcotic m edications. He also has muscle relaxants on board. He has comorbid conditions to include coronary a rtery disease, atrial fibrillation, chronic obstructive pulmonary disease, on oxygen requirement in a ddition to rib fractures, cholelithiasis, emphysema. His rehabilitation impairment group 17, major m ultiple trauma without brain or spine injury. His rehabilitation impairment group code is 14.9, othe r multiple trauma. Etiologic Diagnoses: 1.L1 burst compression fracture with 40-50% height loss. 2.Left 9-11 nondisplaced rib fractures. 3.Bilateral pleural effusions, again note active comorbidities chronic obstructive pulmonary disease , has pitting edema, hypotension, falls, paroxysmal atrial fibrillation, deep vein thrombosis, diffus e weakness, and debility. His other comorbidities to include hypercapnic respiratory failure, chroni c hypoxic respiratory failure and cholelithiasis with a central lobar emphysema. For his plan, he will have physical and occupational therapy as noted aggressively and he will have a ll medical conditions managed with appropriate medications as listed above. Impact of comorbid: The patient's comorbidities including atrial fibrillation will require strong an ticoagulation, which puts him at risk of bleeding from GI to external bleeding from trauma and even i n the lung or pulmonary system. He will be evaluated hemoglobin and hematocrit appropriately and if need be, GI system will be evaluated with GI service if there is a suspected GI bleeding. Otherwise, he has significant pain from the burst fracture and pain management, though an ongoing issue. Rehab Plan: He will have physical and occupational therapy for 3 hours a day 5 of 7 days, is noted t o improve his ability to perform independently upper and lower body dressing, toileting, transferring from bed to chair to shower, or his ability to eat independently all consistencies and to ambulate o sal 500 feet independently with an assistive device and around perhaps 250 feet without an assistive device while using oxygen around 2 L of nasal cannula. Note, the patient has a good understanding of the admission procedure during rehabilitation and discharge from rehabilitation. He has a great pot ential to improve and become independent with the disciplines as noted and he will need ongoing respi ratory issues addressed, nutrition services, treatment of his deep vein thrombus in addition to servi michelle to prevent wound development from decubital ulcers and to address his mood as he has a high risk of depression. Given his complex medical condition and rehabilitation needs, it is not safe for him to be at a lower level of rehabilitation such as nursing home and acute inpatient rehabilitation a s required. Barriers to discharge were noted. He has multiple complex conditions including multiple fractures to rib area that are nondisplaced, L1 burst fracture, significant need for oxygen with shortness of enzo ath, and drop of ox saturation with ambulation. He has significant edema in the lower extremities re quiring Lasix and management of his electrolytes and fluid input and output. He has risk of renal fa ilure with anemia. He has to be addressed as well. He has anticoagulation for his atrial fibrillati on and may have GI bleeds as well. Estimated Length Of Stay: Around 14 days. Disposition: He is expected to be discharged home. Prognosis: Good. Rehabilitation Goals: 1 for him to become independent with upper and lower body dressing, toileting, for transfers for him to ambulate with 2 L of oxygen via nasal cannula independently over 500 feet u p and down 10 steps independently with 2 L of oxygen via nasal cannula. I acknowledge that I personally performed a full examination of Mr. Enrrique Garcia within 7 hours of his arrival to the inpatient rehabilitation unit and determined that he is able to tolerate the therapy as noted above which is intense and for the period as noted above. A detailed individualized plan fo r his rehabilitation will be completed by hospital day 4, based on his pre-admission screen, history and physical, and his therapy evaluations. EDDIE Voice ID: [id number]
--- NOTE | 2022-05-30 22:01 | PN ---
Date of Progress Note: 05/30/2022 Time Of Service: 12:30 a.m. Subjective: Mr. Garcia notes much improved pain control at his L1 compression fracture site after 2 lid ocaine patches placed and his gabapentin dosage was adjusted to 12 mg twice daily. Continue also wit h muscle relaxants. He reports feeling well and denies any additional complaints. Review of Systems: No fevers or chills, myalgias, arthralgias, rash, headache, weight change. No psychiatric issues. N o gastrointestinal or genitourinary complaints. No dermatological complaints. Physical Examination: Vital Signs: Blood pressure 130/76, pulse 67, respiratory rate 16, temperature 97.7, oxygen saturati on 96%. General: Mr. Garcia is in the gym doing therapies, currently sitting. HEENT: He is normocephalic and atraumatic. Sclerae anicteric. Oropharynx is moist. Neck: Supple. Chest: Clear. Heart: Regular. Abdomen: Soft. Extremities: He has stasis changes in the lower extremities; mild edema bilaterally at the ankles. Laboratory Studies: White blood cell count 8.1, hemoglobin 12.8, platelets 171. Chemistries: Sodiu m 140, potassium 4.3, chloride 105, BUN 31, creatinine 1.04, calcium 8.4, albumin 2.8, prealbumin 18. 1. Urinalysis, trace protein, 1+ urobilinogen, specific gravity greater than 1.03, otherwise unremar kable. COVID-19 test is negative. X-ray imaging: No new x-ray imaging. Medications: Albuterol nebulizer 2.5 mg every 6 hours, Eliquis 5 mg twice daily, aspirin 81 mg daily , Flexeril 10 mg daily, Lasix 40 mg daily, lidocaine patch 2 daily, Cozaar 25 mg daily, melatonin 3 m g at bedtime, Robaxin 500 mg every 6 hours, Lopressor 25 mg twice daily, potassium 10 mEq daily, pred nisone 20 mg daily, Senokot-S 2 tablets at bedtime. Current Functional Status: Currently Mr. Garcia is able to ambulate 200 feet 4 times and 330 feet twice with contact guard assistance using a rolling walker while on 2 L of oxygen via nasal cannula. His oxygen saturation is maintained, 94% to 97%. Wheelchair mobilization. He completed over 250 feet wi th verbal cues while maneuvering the wheelchair. He did donning and doffing of his MAURIZIO brace, remain ing closer to rolling walker when ambulating. Progress Towards Rehabilitation Goals: He is making excellent progress towards his goals of becoming independent with upper and lower body dressing, donning his shoes, and transferring from bed to purnima r to toilet and shower as well as performing a shower. In addition, he has been moving towards indep endence with ambulating over 500 feet. Assessment: Mr. Garcia is a 67-year-old patient who has multiple medical problems, who had a traumatic L1 burst compression fracture. He has a TLSO brace, which he has to wear at all times when out of be d and upright. His pain management is with lidocaine patches, gabapentin 1200 mg twice daily, methoc arbamol 500 mg every 6 hours as needed, and those are managing his pain well. His comorbid hypertens ion managed with Lopressor 25 mg twice daily, in addition to congestive heart failure, managed with L asix 40 mg daily. He has aspirin 81 mg daily along with Eliquis for stroke and DVT risk reduction. Melatonin 3 mg at night for insomnia. He has potassium replacement for slightly low potassium. Senok ot 2 at night for constipation, which is not an issue at this point. He has nebulizer for shortness of breath. Comorbidities That Continue To Impact Rehabilitation Process: At this point, as comorbid conditions are being stably managed including volume overload status, which is an issue. He does have risk of d eep vein thrombosis, Eliquis 5 mg twice daily. There is a significant amount of pain from the compre ssion fractures, managed with multiple pain modalities along with TLSO brace. His insomnia addressed with melatonin and constipation addres sed with Senokot. LB/MODL Voice ID: [id number] Report ID: [id number]
[2022-05-31] MEDS: ALBUTEROL 2.5 MG/3 ML NEB SOL NEB SCH ×4 (02:15→20:40)
[2022-05-31] MEDS: METOPROLOL TAR 25 MG TAB PO SCH ×2 (05:05→17:29)
[2022-05-31 05:45] LABS: Absolute Lymphocytes (CBC) 0.9 K/uL (0.7-4.9); Hematocrit 37.2 % (39.6-49.0); MCV 93.8 fL (80-100); MPV 7.7 fL (7.6-11.3); RBC Red Blood Cell Count 3.96 M/uL (4.33-5.43)
[2022-05-31 06:06] LABS: Albumin 2.8 g/dL (3.4-5.0); Magnesium 2.3 mg/dL (1.6-2.4); Potassium 3.5 mmol/L (3.5-5.1); Prealbumin 18.3 mg/dL (20-40)
[2022-05-31] MEDS: FUROSEMIDE 40 MG TABLET PO SCH (07:45)
[2022-05-31] MEDS: APIXABAN 5 MG TABLET PO SCH ×2 (07:46→20:07)
[2022-05-31] MEDS: ASPIRIN 81 MG CHEWABLE TABLET PO SCH (07:46)
[2022-05-31] MEDS: LOSARTAN POTASSIUM 50 MG TABLET PO SCH (07:46)
[2022-05-31] MEDS: CYCLOBENZAPRINE 10 MG TAB PO SCH (07:46)
[2022-05-31] MEDS: POTASSIUM CL SA 10 MEQ TAB PO SCH (07:47)
[2022-05-31] MEDS: predniSONE 20 MG TAB PO SCH (07:47)
[2022-05-31] MEDS: LIDOCAINE 4% PATCH TOP SCH (10:05)
[2022-05-31] MEDS: methocarbamoL 500 MG TAB PO PRN ×2 (10:24→16:30)
--- NOTE | 2022-05-31 19:43 | PN ---
Date of Progress Note: 05/31/2022 Kix[facility]Lv-Apiy Visit. Time Of Service: 12:30 p.m. Subjective: Mr. Garcia does report menv-ed-shclazja pain as he is doing his therapy, ambulating around the unit. Pain is in the lower lumbar region and he does have his TLSO brace in place. He reports t he combination of medications is helpful for his pain and that he has adequate control especially whe n he is in bed or sitting. Review of Systems: He has mild muscle pain and spasms in the lower extremities. No arthralgias. No fevers or chills. No headache. No rash. No symptoms of active depression. No gastrointestinal or genitourinary issue s. No dermatological complaints. Physical Examination: Vital Signs: Blood pressure 132/66, pulse 60, respiratory rate 18, temperature 97.9, and oxygen satu ration 97% on 2 L oxygen via nasal cannula. General: Mr. Garcia is ambulating with rolling walker with his therapist behind him. HEENT: He is normocephalic, atraumatic. Sclerae anicteric. Oropharynx is moist. Neck: Supple. Chest: Clear. Abdomen: Soft. Extremities: He has no significant edema or cyanosis. Neurologic: He does not have focal weakness. Back: There is significant pain in the lower back again managed with combination of medications. Laboratory Studies: White blood cell count 9.2, hemoglobin 12.3, and platelets 165. Chemistry: Sod ium 141, potassium 3.5, chloride 106, BUN 28, creatinine 1.04, prealbumin 18.3, and albumin 2.8. His urinalysis is unchanged since yesterday and COVID-19 test was negative on the . X-ray/imaging: None. Medications: Albuterol 2.5 mg 3 times daily nebulizer, Eliquis 5 mg twice daily, aspirin 81 mg daily , Flexeril 10 mg daily, Lasix 40 mg daily, lidocaine patch 2 patches to lower back daily as needed, C ozaar 25 mg daily, melatonin 3 mg at bedtime, Robaxin 500 mg every 6 hours as needed, Lopressor 25 mg twice daily, potassium 10 mEq daily, prednisone 20 mg daily, and Senokot-S 2 tablets at bedtime. Current Functional Status: Currently, Mr. Garcia is able to ambulate 250 feet 4 times, 600 feet once, a nd another 500 feet twice with contact guard assistance using a rolling walker and he has 2 L of oxyg en via nasal cannula. Oxygen saturation ranged from 94% to 96%. He is able to tolerate 6 minutes of standing while participating in standing balance activity with 4 rest breaks. He did bilateral lowe r extremity presses 5 sets of 12 to improve his strength. He did require some verbal cues for safety while ambulating with a rolling walker and while standing. Progress Towards Rehabilitation Goals: He is making excellent progress towards his goals of independ ence with upper and lower body dressing, toileting, transferring, showering, ambulating over 500 feet with independence with the use of assistive device and without and going up and down 10 steps withou t an assistive device and bilateral hand rails. Assessment: Mr. Garcia is a 67-year-old patient who has a traumatic L1 burst fracture and has a TLSO br jemma and is now doing very well with his physical and occupational therapy. He has significant pain i n the area that is now managed with lidocaine patches, gabapentin 1200 mg twice daily, and methocarba mol 500 mg every 6 hours as needed as well. His hypertension is managed with Lopressor 25 mg twice d aily and Lasix 40 mg daily. His stroke risk is managed with Eliquis 5 mg twice daily and insomnia ma naged with melatonin 3 mg at night. He does have Senokot 2 at night for constipation. Comorbidities that continue to hamper his ability to improve: He does have significant risk of deep vein thrombosis and is therefore on Eliquis. He does have pain as noted. He has a TLSO brace along with medications, both transdermal and oral and he is doing well from that standpoint. Constipation is managed as his pain medications would likely cause constipation. SHELBY/KIZZYL Voice ID: [id number] Report ID: [id number]
[2022-06-01] MEDS: METOPROLOL TAR 25 MG TAB PO SCH ×2 (05:47→17:39)
--- NOTE | 2022-06-01 08:48 | P.RH.PN ---
Estimated Length of Stay: 10 Expected Discharge Date: 06/07/22 Discharge Disposition Plan: Home Family Support: Yes Skilled Nursing Goal: Mobility, Transfers, Self Care Vital Signs: Last Vital Signs Temp 97.6 F 06/01/22 07:15 Pulse 75 06/01/22 07:15 Resp 18 06/01/22 07:15 BP 162/72 H 06/01/22 07:15 Pulse Ox 91 06/01/22 07:15 Laboratory: Laboratory Last Values WBC 9.20 K/uL (4.3-10.9) 05/31/22 05:32 RBC 3.96 M/uL (4.33-5.43) L 05/31/22 05:32 Hgb 12.3 g/dL (13.6-17.9) L 05/31/22 05:32 Hct 37.2 % (39.6-49.0) L 05/31/22 05:32 MCV 93.8 fL (80-100) 05/31/22 05:32 MCH 31.2 pg (27.0-35.0) 05/31/22 05:32 MCHC 33.2 g/dL (32.0-36.0) 05/31/22 05:32 RDW 15.5 % (12.1-15.2) H 05/31/22 05:32 Plt Count 165 K/uL (152-406) 05/31/22 05:32 MPV 7.7 fL (7.6-11.3) 05/31/22 05:32 Neutrophils % 80.0 % (41.7-73.7) H 05/31/22 05:32 Lymphocytes % 10.0 % (15.3-44.8) L 05/31/22 05:32 Monocytes % 9.0 % (3.3-12.3) 05/31/22 05:32 Eosinophils % 0.6 % (0-4.4) 05/31/22 05:32 Basophils % 0.4 % (0-1.3) 05/31/22 05:32 Absolute Neutrophils 7.4 K/uL (1.8-8.0) 05/31/22 05:32 Absolute Lymphocytes 0.9 K/uL (0.7-4.9) 05/31/22 05:32 Absolute Monocytes 0.8 K/uL (0.1-1.3) 05/31/22 05:32 Absolute Eosinophils 0.1 K/uL (0-0.5) 05/31/22 05:32 Absolute Basophils 0.0 K/uL (0-0.5) 05/31/22 05:32 Sodium 141 mmol/L (136-145) 05/31/22 05:32 Potassium 3.5 mmol/L (3.5-5.1) D 05/31/22 05:32 Chloride 106 mmol/L (98-107) 05/31/22 05:32 Carbon Dioxide 35 mmol/L (21-32) H 05/31/22 05:32 Anion Gap 3.5 mEq/L (5.0-15.0) L 05/31/22 05:32 BUN 28 mg/dL (7-18) H 05/31/22 05:32 Creatinine 1.04 mg/dL (0.70-1.30) 05/31/22 05:32 Est GFR (CKD-EPI) 79 ml/min (=/>90) L 05/31/22 05:32 Glucose 99 mg/dL (74-106) 05/31/22 05:32 Calcium 8.6 mg/dL (8.5-10.1) 05/31/22 05:32 Magnesium 2.3 mg/dL (1.6-2.4) 05/31/22 05:32 NT-Pro-B Natriuret Pep 205 pg/mL (<125) H 05/30/22 04:26 Albumin 2.8 g/dL (3.4-5.0) L 05/31/22 05:32 Prealbumin 18.3 mg/dL (20-40) L 05/31/22 05:32 Urine Color Yellow (Yellow) 05/30/22 03:40 Urine Clarity Clear (Clear) 05/30/22 03:40 Urine pH 6.0 (5.0-7.0) 05/30/22 03:40 Ur Specific Pierson > 1.030 (1.005-1.030) H 05/30/22 03:40 Glucose (UA)(Auto) Negative (Negative) 05/30/22 03:40 Urine Ketones Negative (Negative) 05/30/22 03:40 Urine Blood Negative (Negative) 05/30/22 03:40 Urine Nitrite Negative (Negative) 05/30/22 03:40 Urine Bilirubin Negative (Negative) 05/30/22 03:40 Urine Urobilinogen 1+ (Normal) H 05/30/22 03:40 Ur Leukocyte Esterase Negative Sunny/uL (Negative) 05/30/22 03:40 Urine RBC <5 /HPF (None Seen) 05/30/22 03:40 Urine WBC <5 /HPF (<5) 05/30/22 03:40 Hyaline Casts 0-5 /LPF (None Seen) 05/30/22 03:40 Urine Mucus Slight /HPF (None Seen) 05/30/22 03:40 Urine Total Protein Trace (Negative) H 05/30/22 03:40 SARS-CoV-2 Rap RNA(RT-PCR) Negative (NEGATIVE) 05/29/22 16:00 Weight: 196 lb 14.4 oz Wound Present: No Negative Pressure Wound Therapy Present: No Physician Update: Making good progress with all therapy. He has multiple medical comorbids. Ambulating 600' with CGA. He is doing well with his ADLs. 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 Please see the Rehabilitation Signature page for all necessary signatures.
[2022-06-01] MEDS: ALBUTEROL 2.5 MG/3 ML NEB SOL NEB SCH ×3 (08:50→20:00)
[2022-06-01] MEDS: APIXABAN 5 MG TABLET PO SCH ×2 (08:53→19:40)
[2022-06-01] MEDS: ASPIRIN 81 MG CHEWABLE TABLET PO SCH (08:53)
[2022-06-01] MEDS: LIDOCAINE 4% PATCH TOP SCH (08:53)
[2022-06-01] MEDS: predniSONE 20 MG TAB PO SCH (08:53)
[2022-06-01] MEDS: LOSARTAN POTASSIUM 50 MG TABLET PO SCH (08:54)
[2022-06-01] MEDS: FUROSEMIDE 40 MG TABLET PO SCH (08:54)
[2022-06-01] MEDS: POTASSIUM CL SA 10 MEQ TAB PO SCH ×2 (08:55→19:40)
[2022-06-01] MEDS: CYCLOBENZAPRINE 10 MG TAB PO SCH (08:55)
--- NOTE | 2022-06-01 11:32 | RAD REPORT ---
EXAM DESCRIPTION: RAD - Abdomen 1 View (KUB) - 06/01/2022 10:32 am CLINICAL HISTORY: Abdomen pain FINDINGS: The bowel gas pattern is unremarkable. Round density left upper quadrant may represent an ingested tablet. Other considerations include gran uloma or probably less likely a renal calculus A ventral hernia containing bowel not seen on this exam. If clinically indicated further evaluation w ith CT could be obtained
[2022-06-02] MEDS: MELATONIN 3 MG TABLET PO PRN ×2 (01:03→23:42)
[2022-06-02] MEDS: METOPROLOL TAR 25 MG TAB PO SCH ×2 (05:05→17:03)
[2022-06-02] MEDS: LIDOCAINE 4% PATCH TOP SCH (08:34)
[2022-06-02] MEDS: FUROSEMIDE 20 MG TABLET PO SCH (08:35)
[2022-06-02] MEDS: POTASSIUM CL SA 10 MEQ TAB PO SCH ×2 (08:35→19:58)
[2022-06-02] MEDS: APIXABAN 5 MG TABLET PO SCH ×2 (08:35→19:58)
[2022-06-02] MEDS: predniSONE 20 MG TAB PO SCH (08:36)
[2022-06-02] MEDS: CYCLOBENZAPRINE 10 MG TAB PO SCH (08:36)
[2022-06-02] MEDS: ASPIRIN 81 MG CHEWABLE TABLET PO SCH (08:36)
[2022-06-02] MEDS: LOSARTAN POTASSIUM 50 MG TABLET PO SCH (08:37)
[2022-06-02] MEDS: ALBUTEROL 2.5 MG/3 ML NEB SOL NEB SCH ×3 (08:58→20:25)
[2022-06-03] MEDS: METOPROLOL TAR 25 MG TAB PO SCH ×2 (05:08→16:54)
[2022-06-03] MEDS: LIDOCAINE 4% PATCH TOP SCH (07:29)
[2022-06-03] MEDS: ASPIRIN 81 MG CHEWABLE TABLET PO SCH (07:58)
[2022-06-03] MEDS: LOSARTAN POTASSIUM 50 MG TABLET PO SCH (07:58)
[2022-06-03] MEDS: FUROSEMIDE 20 MG TABLET PO SCH (07:58)
[2022-06-03] MEDS: APIXABAN 5 MG TABLET PO SCH ×2 (07:58→19:10)
[2022-06-03] MEDS: predniSONE 20 MG TAB PO SCH (07:58)
[2022-06-03] MEDS: POTASSIUM CL SA 10 MEQ TAB PO SCH ×2 (07:59→19:10)
[2022-06-03] MEDS: CYCLOBENZAPRINE 10 MG TAB PO SCH (08:11)
[2022-06-03] MEDS: ALBUTEROL 2.5 MG/3 ML NEB SOL NEB SCH ×3 (08:58→23:05)
[2022-06-03] MEDS: methocarbamoL 500 MG TAB PO PRN (17:55)
[2022-06-03] MEDS: MELATONIN 3 MG TABLET PO PRN (19:16)
[2022-06-04] MEDS: methocarbamoL 500 MG TAB PO PRN (02:07)
[2022-06-04] MEDS: METOPROLOL TAR 25 MG TAB PO SCH ×2 (05:00→17:08)
[2022-06-04] MEDS: LIDOCAINE 4% PATCH TOP SCH (08:47)
[2022-06-04] MEDS: predniSONE 20 MG TAB PO SCH (08:48)
[2022-06-04] MEDS: ASPIRIN 81 MG CHEWABLE TABLET PO SCH (08:48)
[2022-06-04] MEDS: APIXABAN 5 MG TABLET PO SCH ×2 (08:48→19:23)
[2022-06-04] MEDS: CYCLOBENZAPRINE 10 MG TAB PO SCH (08:48)
[2022-06-04] MEDS: FUROSEMIDE 20 MG TABLET PO SCH (08:49)
[2022-06-04] MEDS: POTASSIUM CL SA 10 MEQ TAB PO SCH ×2 (08:49→19:24)
[2022-06-04] MEDS: LOSARTAN POTASSIUM 50 MG TABLET PO SCH (08:49)
[2022-06-04] MEDS: ALBUTEROL 2.5 MG/3 ML NEB SOL NEB SCH ×3 (10:15→20:00)
--- NOTE | 2022-06-04 20:57 | PN ---
Date of Progress Note: 06/04/2022 Time Of Service: 1:00 p.m. Subjective: Mr. Garcia is doing much better today. He says his back pain is improving daily. He still has his TLSO brace in place as he is ambulating around the unit. He has no new complaints. Review of Systems: No fevers, chills, nausea, vomiting, myalgias, arthralgias. Pain in the lower back again when he amb ulates especially. No gastrointestinal or genitourinary issues. Physical Examination: Vital Signs: Blood pressure 128/76, pulse 70, respiratory rate 16, temperature 97.0, oxygen saturati on 98%. General: Mr. Garcia is doing well. He has no focal or neurological deficits. Does have some pain in t he lower back area and TLSO brace is in place. He has trace edema in lower extremities. Laboratory Studies: No new laboratory studies. X-ray Imaging: KUB on the showed no abnormalities in terms of bowel gas pattern. There is a ro und density in the left upper quadrant may represent an undigested tablet. However, other considerat ions include granuloma and less likely renal calculus. A ventral hernia containing bowel was not see n. Medications: Albuterol nebulizer 2.5 mg every 8 hours as needed, Eliquis 5 mg twice daily, aspirin 8 1 mg daily, Flexeril 10 mg daily, Lasix 20 mg twice daily, lidocaine patch 1 applied to lower back as needed daily, Cozaar 25 mg daily, melatonin 3 mg at bedtime, Robaxin 500 mg every 6 hours, Lopressor 25 mg twice daily, potassium 10 mEq twice daily, Deltasone 10 mg daily, Senokot-S 2 at bedtime. Current Functional Status: Currently, Mr. Garcia ambulated 450 feet ambulated 4 times and about 750 fee t twice with independence using a rolling walker. He had 2 L of oxygen by nasal cannula. Oxygen sat uration was maintained 94% to 96%. He ascended and descended 5 steps 5 times independently using fahad ateral handrails. He ambulated in shower with rolling walker independently. He did standing balance exercises 2 sets of 20 repetitions with a break with 2 L of oxygen. Throughout his therapy, he kept his TLSO brace in place. Progress Towards Rehabilitation Goals: He is making excellent progress towards rehabilitation goals of becoming independent with upper and lower body dressing, toileting, transfers, showering, and ambu lating about 1000 feet with the rolling walker and perhaps single prong cane and without assistive de vices while maintaining his CS brace. Assessment: Mr. Garcia is a 67-year-old patient is admitted to the rehabilitation unit with an L1 burst fracture and comorbid muscle spasms, hypertension, insomnia, constipation, and he is doing very well regarding his therapy. Plan: 1.Continue with physical and occupational therapy as noted. 2.For DVT prophylaxis, Eliquis and aspirin. Continue Lasix. 3.For his lower extremity edema, continue lidocaine patch for back pain. Continue melatonin for ins omnia. Continue Robaxin for muscle spasms. Continue Senna S for constipation. Comorbidities that continue to impact his rehabilitation process: At this stage, he is doing very we ll. Comorbidities do not impair his rehabilitation and he actually will be ready for discharge terrance oliva. He was given information on Dr. Sander Quiñonez for him to see Dr. Quiñonez regarding possible kypho plasty of the L1 burst fracture. He will go home with medications as listed above and follow up with his primary care physician as elizabeth ortiz. SHELBY/ANDI Voice ID: [id number] Report ID: [id number]
[2022-06-04 21:03] VITALS: O2SAT 99
[2022-06-04 21:37] VITALS: TEMP 96.9
[2022-06-05] MEDS: MELATONIN 3 MG TABLET PO PRN (00:25)
[2022-06-05] MEDS: METOPROLOL TAR 25 MG TAB PO SCH (05:06)
[2022-06-05] MEDS: LIDOCAINE 4% PATCH TOP SCH (07:26)
[2022-06-05 07:31] VITALS: BP 127/81
[2022-06-05] MEDS: APIXABAN 5 MG TABLET PO SCH (07:53)
[2022-06-05] MEDS: ASPIRIN 81 MG CHEWABLE TABLET PO SCH (07:53)
[2022-06-05] MEDS: CYCLOBENZAPRINE 10 MG TAB PO SCH (07:53)
[2022-06-05] MEDS: POTASSIUM CL SA 10 MEQ TAB PO SCH (07:54)
[2022-06-05] MEDS: FUROSEMIDE 20 MG TABLET PO SCH (07:54)
[2022-06-05] MEDS: LOSARTAN POTASSIUM 50 MG TABLET PO SCH (07:54)
[2022-06-05] MEDS: predniSONE 20 MG TAB PO SCH (07:54)
--- NOTE | 2022-06-18 19:53 | DS ---
Date of Discharge: 06/05/2022 Discharge Condition: Good. Discharge Diagnoses: L1 burst fracture after standing fall, muscle spasms, hypertension, insomnia, c onstipation. Consultations During Hospitalization: None. Studies During Hospitalization: KUB was done on 06/01/2022 to evaluate abdominal pain. The study di d show round density in the left upper quadrant representing an undigested tablet. However, the radi ologist did note a glioma and renal calculus should be considered. There was no evidence of a ventra l hernia containing bowel. Laboratory Studies: White blood cell count 9.2, hemoglobin 12.3, hematocrit 37.2, platelets 165. Ch emistry: Sodium 141, potassium 3.5, chloride 106, carbon dioxide 35, creatinine 1.04, glucose 99, ca lcium 8.6. Prealbumin 18.3, albumin 2.8. COVID testing on the was negative. Hospital Course: Mr. Garcia was admitted with L1 burst fracture and had a TLSO brace in place while on the bed and he was able to maintain that. He did very well with his therapies throughout and was abl e to participate fully and did not have any significant barriers as he did his physical and occupatio nal therapy towards regaining independence. He did have 2 L of oxygen at times by nasal cannula with ox saturations ranging up to 96%. He continued all of his medications pre-hospitalization and was d oing very well. His white blood cell count remained normal and had some mild dehydration and food in take and full free water was encouraged. Progress made with his physical and occupational therapy. By discharge regarding physical therapy, annmarie wang was able to perform bed mobility with standard hospital bed rails without limitation. Transfers we re done without limitation. He ambulated 450 feet with good tolerance independently. He ascended an d descended 25 steps with tolerance independently. He did a car transfer into an [facility] with a rolling walker without restriction. The patient was discharged home with all functional goals met and it was recommended he continue outpatient physical therapy. Durable medical equipment needs were also met in terms of occupational therapy. Showers done independently. Lower body, upper body dressing done independently without limitations. He did meet all of his functional goals and occupational therapy was not recommended to be continued after discharge. LB/MODL Voice ID: [id number] Report ID: [id number]
== END 2022-06-05 09:30 | disposition home health service (06) | DRG 560 ==
LOC: 5TH 12:59
PROVIDERS: ADMIT Psychiatry & Neurology Neurology with Special Qualifications in Child Neurology; ATTEND Psychiatry & Neurology Neurology with Special Qualifications in Child Neurology
DX: S32.011D Stable burst fracture of first lumbar vertebra, subsequent encounter for fracture with routine healing (principal); J90 Pleural effusion, not elsewhere classified; J96.12 Chronic respiratory failure with hypercapnia; J96.11 Chronic respiratory failure with hypoxia; S22.42XD Multiple fractures of ribs, left side, subsequent encounter for fracture with routine healing; I25.10 Atherosclerotic heart disease of native coronary artery without angina pectoris; I95.9 Hypotension, unspecified; E86.0 Dehydration; I50.9 Heart failure, unspecified; R53.81 Other malaise; L60.2 Onychogryphosis; J43.9 Emphysema, unspecified; I48.0 Paroxysmal atrial fibrillation; I10 Essential (primary) hypertension; G47.00 Insomnia, unspecified; M54.9 Dorsalgia, unspecified; K59.00 Constipation, unspecified; M62.838 Other muscle spasm; Z79.01 Long term (current) use of anticoagulants; Z79.82 Long term (current) use of aspirin; Z79.899 Other long term (current) drug therapy; Z20.822 Contact with and (suspected) exposure to COVID-19; I48.91 Unspecified atrial fibrillation; W07.XXXD Fall from chair, subsequent encounter
CPT/HCPCS: 36415; 74018; 80048; 81001; 82040; 83735; 83880; 84134; 85025; 87086; 87088; 94640; 97110; 97116; 97161; 97165; 97530; 97542; J2001; J7512; J7613; U0003